=== PATIENT | male | born 1940 | race Caucasian/White ===

== ENCOUNTER → 2017-03-03 | Outpatient (CLI) | payer OTHER ==
[~2017-03-03] MED LIST: ACET-1487 PO; ASPEC325 PO; FISHOIL PO; HYT/2 PO; ISOS60TA25 PO; LORA-741 PO; LPR25 PO; MULT-351 PO; RANO500T PO; SIMV40TA4 PO; TERA5CAP PO; TRAM-10 PO
--- NOTE | 2017-03-04 08:57 | PAP/PSG TECHNICIAN REPORT ---
[facility] [place] Polysomnogram Report Study name: None Report date: 03/04/2017 Study date: 03/03/2017 Referring Physician: Epifanio LANDERS M.D. Name: BAYRON FRY V Interpreting Physician: Robert Landers M.D. Date of : 1940 [place]: Cassie Wong RPSGT. Sex: Male Age: 76 Study Type: PSG Weight: 202 lbs 16.5 in Height: 76 years, Height 5' 5" Neck Circum: BMI: 33.61 Medications: CLOPIDOGREL 75 MG, IMDUR 30 MG, NITROSTAT 0.4 MG, FUROSEMIDE 20 MG, TERAZOSIN 5 MG, MULTI VIT, METOPROLOL 50 MG, TYLENOL 650 MG, ASPIRIN 81 MG, B COMPLEX, ONE A DAY MENS, ATORVASTATIN 40 MG, OMEGA 3 FISH OIL 1000 MG Patient History 76 yr-old male here for a baseline/split study. HE has a history of unrefreshing sleep, snoring, and heart disease. His [place] scale is 16. The test was started on room air. ETCO2 testing is included in this study. Room 1 Parameters Monitored NPSG: E1-M2, E2-M1, Fp1-M2, Fp2-M1, F3-M2, F4-M2, F4-M1, C3-M2, C4-M2, C4-M1, O1-M2, O2-M2, O2-M1, T3-M2, T4-M1, P3-M2, P4-M1, CHIN1, CHIN2, HR, EKG, Legs, PFLOW, SNOR, FLOW, CFLOW, Tidal Volume, THOR, ABDO, SpO2, PLTH, CPRESS, ETCO2 Wave, ETCO2, pH Sleep Architecture Sleep Stages Time at Lights Off 9:23:46 PM STAGES Time (min.) TST (%) Time at Lights On 5:13:46 AM Wake 92.0 -- Total Recording Time (TRT) 470.00 min. N1 100.0 26 Total Sleep Period (TSP) 464.0 min. N2 203.5 54 Total Sleep Time (TST) 378.0min. N3 0.0 0 Awake Time 92.0 min. REM 74.5 20 Wake after Sleep Onset 86.0 min. Sleep Efficiency (SE) 80 % Sleep Onset Latency (RYAN) 6.0 min. Number of Stage 1 Shifts None Awakenings 39 Stage Changes 195 Number of REM periods 5 REM 74.5 20 REM Latency 73.0 min. NREM 303.5 80 Body Position Analysis Supine Right Left Side Prone Vertical Total Sleep Time (min.) 100.6 155.4 155.0 310.37 0.0 0.0 Total Sleep Time (%) 18% 41% 41% 82 0% N/A% Total Sleep Time REM (min.) 0.0 19.0 55.5 None 0.0 0.0 Total Sleep Time NREM (min.) 67.6 136.4 99.5 None 0.0 0.0 Intermittent Wake (min.) 33.0 21.7 37.3 None 0.0 0.0 Total Sleep Period (%) 20% None None None None None Arousals Myoclonus (PLM) * Events Count Index Events Count Index Spontaneous 17 3 Events Awake (PLMW) 154 100.4 Respiratory 103 18.1 Events Asleep w/ Arousal (PLMA) 69 11.0 PLM 67 11 Events Asleep w/o Arousal (PLMS) 656 104.1 Snoring 17 3 Total Asleep 725 115.1 Total 202 32 Total 879 112 Respiratory Analysis * CA OA MA CH H RERA Total Count 22 38 65 0 176 8 301 Index 3.5 6.0 10.3 0 27.9 1 49.0 Mean Duration 22.0 21.7 28.9 0.00 24.2 19.8 24.6 Longest Duration 30.6 35.9 37.1 0.00 37.1 24.5 56.4 Respiratory Event Summary Total Supine ~Supine Right Left Prone REM NREM Apneas Count 125 51 74 2 72 N/A 2 123 Index 19.8 45 14 0.8 27.9 N/A 2 24 Hypopneas (4% Desat) Count 176 45 131 60 71 N/A 45 131 Index 27.9 39.9 25 23.2 27.5 N/A 36.2 25.9 Apneas & All Hypopneas Count 301 96 205 62 143 N/A 47 254 Index 47.8 85 40 24 55 N/A 37.9 50.2 Respiratory Events (Mixer Attendant+All Hyp+RERA) Count 301 96 213 69 144 N/A 47 254 Index 49.0 85 41 26.6 55.7 N/A 37.9 51.8 Respiratory Related Arousal Count 103 96 63 22 41 N/A 4 110 Index 18.1 45 12 8 16 N/A 3 22 Snoring Analysis Supine Right Left Prone REM NREM Total Snore duration 25.1 min Snores count 154 234 725 N/A 539 574 1,113 Snore mean duration 1.4 Sec Snores index 137 90 281 N/A 434.1 113.5 176.7 TST with snoring (%) 6.6% SpO2 Analysis Total REM NREM Awake <50% 0.0 min. 0.0 min. 0.0 min. 0.0 min. 51 - 60% 0.0 min. 0.0 min. 0.0 min. 0.0 min. 61 - 70% 0.0 min. 0.0 min. 0.0 min. 0.0 min. 71 - 80% 0.4 min. 0.4 min. 0.0 min. 0.0 min. 81 - 90% 141.9 min. 33.6 min. 89.5 min. 18.9 min. 91 - 100% 313.8 min. 40.5 min. 213.9 min. 59.3 min. Average 91 90 91 92 Minimum SpO2 78 78 80 82 Desaturation Event Index 47.5 34.6 51.2 49.6 # Desat. Events below 89% 246 32 171 43 Time(%) with Saturation below 89% 12.3 4.0 6.6 1.6 Time(min.) with Saturation below 89% 56.2 18.4 30.3 7.5 Heart Rate Analysis End Tidal CO2 Analysis Min (bpm) Max (bpm) Average (bpm) TSP (mins) % of TSP Awake 42 127 62 Above 55 mmHg 0.0 0.0 NREM 42 85 58 50-55 mmHg 0.1 0.0 REM 47 83 62 45-50 mmHg 10.8 2.8 Overall 42 85 59 40-45 mmHg 75.0 19.9 35-40 mmHg 101.8 26.9 30-35 mmHg 92.5 24.5 Average ETCO2 0.3 Supplemental O2 Values Minimum O2 level: None Value Start Time End Time [place] Comments Mr. Fry slept in the right, left, and supine positions. Cardiac arrhythmias were noted (please refer to the print outs). PLMs were noted. No bruxism noted. Snoring was noted and scored as a 3 on a scale of 1 through 5. (0=no snoring, 5=snoring loud enough to be heard through a closed door or down the [address]olan way) He did not meet specific Split-Night criteria in enough time during the diagnostic portion of this study. He awoke to use the restroom two times during the night. Mr. Fry stated that he woke up a lot and didn't sleep soundly. The final report will be interpreted and signed by a sleep physician. The completed physician report will then be placed in the patient medical record. Therapy (cm H2O) 0 TIB (min.) 470.0 TST (min.) 378.0 Sleep Onset (min.) 6.0 REM Onset From Sleep (min.) 73.0 Sleep Efficiency % 80 Wakefulness (%) 20 Wakefulness (min.) 92.0 NREM 1 (%) 26 NREM 1 (min.) 100.0 NREM 2 (%) 54 NREM 2 (min.) 203.5 NREM 3 (%) 0 NREM 3 (min.) 0.0 REM (%) 20 REM (min.) 74.5 # Arousals 202 Arousal Index 32 # Snore 1,113 Snore Index 176.7 AHI 47.8 AHI Supine 85 AHI Non-Supine 40 NREM AHI 50.2 REM AHI 37.9 RDI 49.0 # Obstructive Apnea 38 # Central Apnea 22 # Mixed Apnea 65 # Hypopneas 176 RERAs 8 Total Respiratory Events 314 Time Below SpO2 89% (min.) 48.7 Mean NREM SpO2 (%) 91 Mean REM SpO2 (%) 90 Mean Sleep SpO2 (%) 91 Min NREM SpO2 (%) 80 Min REM SpO2 (%) 78 Position Supine (min.) 100.6 Position Non-supine (min.) 310.4 LM Index Sleep 115.1 LM Index NREM 125.7 LM Index REM 71.7 Mean Heart Rate (bpm) 59 Min Heart Rate (bpm) 42
--- NOTE | 2017-03-11 15:02 | POLYSOMNOGRAPH REPORT ---
REFERRING PERSON: Dr. Naga Landers. HOSTESS PARTY SALES REPRESENTATIVE: Cassie Wong. Mr. Fry is a 76-year-old male with a history of snoring and unrefreshing sleep as well as heart disease. 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 His [place] Sleepiness Scale score on the evening of this study is 16. BMI is 33.61. Following the technical and digital specifications of the [employer] [employer] (AASM) a standard diagnostic polysomnogram was performed monitoring EEG, EOG, EMG (chin and leg deviations), oxygen saturation, body position, digital video, respiratory effort and airflow. The sleep Stage and event scoring was based on the AASM Manual for the Scoring of Sleep and Associated Events 2007 edition. Apneas are defined as a drop in the peak thermal sensor excursion by >90% of baseline for at least 10 seconds. Hypopneas were scored using the 4% oxygen desaturation rule (4A-Medicare) and a decrease in the nasal pressure excursions by >30% of baseline for at least 10 seconds. Respiratory effort-related arousal (RERA's) is defined as a sequence of breaths lasting at least 10 seconds characterized by increasing respiratory effort or flattening of the nasal pressure waveform leading to an arousal from sleep when the sequence of breaths does not meet criteria for an apnea or hypopnea. Apnea Hypopnea index (AHI) is defined as the number of apneas and hypopneas occurring in an hour of sleep. Respiratory disturbance index (RDI) is defined as the number of apneas, hypopneas, and RERA's occurring in an hour of sleep. Mr. Fry's total sleep period time was 464 minutes. Total sleep time was 378 minutes. Sleep efficiency was 80%. Latency to sleep onset was 6 minutes with wake after sleep onset was 86 minutes. Total non-REM sleep time was 303.5 minutes. He spent 26% of that time in N1 sleep, 54% in N2 sleep and no time in N3 sleep. REM latency was 73 minutes. Total REM sleep time was 74.5 minutes or 20% of total sleep time. There were 202 cortical arousals from sleep. 17 of these arousals were spontaneous, 103 were due to respiratory events, 67 due to periodic limb movements of sleep and 17 were due to snoring. There were 725 periodic limb movements noted on this test. Limb movement index was 115.1. Limb movement with arousal index was 11. There were 22 central apneas, 38 obstructive apneas and 65 mixed apneas on this test. There were also 176 what appear to be obstructive hypopnea. Apnea-hypopnea index was 47.8 consistent with severe sleep apnea. The supine AHI was 85. REM AHI was 37.9. There were 1113 snoring events recorded. Total sleep time with snoring was 6.6%. Mean saturation was 91% with desaturations to 78%. Saturations were less than 89% for 56.2 minutes of recorded time. Heart rates ranged from a low of 42 beats per minute to a high of 85 beats per minute on this study. There appeared to be sinus rhythm with blocked premature atrial complexes noted on EKG monitoring. End tidal CO2s were recorded on this test. End-tidal CO2s were between 45 and 50 mmHg for 2.8% of total sleep period time, between 40 and 45 mmHg for 19.9%, between 35 and 40 mmHg for 26.9% and between 30 and 35 mmHg for 24.5% of total sleep period time. IMPRESSION AND PLAN: Mr. Fry is a 76-year-old male with evidence of severe sleep apnea and significant nocturnal hypoxemia on this sleep study. 1. This patient should return to sleep lab for a full night titration and then based on those results be started on equipment at home. A download from his machine should be reviewed in 1 month both to check compliance as well as apnea-hypopnea index and further pressure adjustments can occur at that time. Given this patient's heart disease, this patient should be treated. This will help his snoring, hypoxemia as well as apnea.
== END | disposition home or self-care (01) ==
LOC: C.NEUR 20:00
PROVIDERS: ATTEND Family Medicine
DX: E66.9 Obesity, unspecified (principal); G47.10 Hypersomnia, unspecified; R09.02 Hypoxemia; I25.10 Atherosclerotic heart disease of native coronary artery without angina pectoris

== ENCOUNTER → 2017-03-18 | Outpatient (CLI) | payer OTHER ==
--- NOTE | 2017-03-19 07:51 | PAP/PSG TECHNICIAN REPORT ---
[facility] [place] Polysomnogram Report Study name: None Report date: 03/19/2017 Study date: 03/18/2017 Referring Physician: Epifanio LANDERS M.D. Name: BAYRON ESPINOZA V Interpreting Physician: Robert Landers M.D. Date of : 1940 [place]: Rachna Bird RPSGT. Sex: Male Age: 76 StudyType: PSG Weight: 202 lbs Height: 76 years, Height 5' 5" BMI: 33.61 Medications: CLOPIDOGREL 75 MG, IMDUR 30 MG, NITROSTAT 0.4 MG, FUROSEMIDE 20 MG, TERAZOSIN 5 MG, MULTI VIT, METOPROLOL 50 MG, TYLENOL 650 MG, ASPIRIN 81 MG, B COMPLEX, ONE A DAY MENS, ATORVASTATIN 40 MG, OMEGA 3 FISH OIL 1000 MG Patient History 76 yr. old male here for a new titration sleep study. Patients PSG was done on 03/03/17 and had an AHI of 49.0. Patient was started on PAP but could not keep his mouth closed with the nasal mask given. Starting study with full face mask on CPAP. Parameters Monitored NPSG: E1-M2, E2-M1, Fp1-M2, Fp2-M1, F3-M2, F4-M2, F4-M1, C3-M2, C4-M2, C4-M1, O1-M2, O2-M2, O2-M1, T3-M2, T4-M1, P3-M2, P4-M1, CHIN1, CHIN2, HR, EKG, Legs, PFLOW, SNOR, FLOW, CFLOW, Tidal Volume, THOR, ABDO, SpO2, PLTH, CPRESS, ETCO2 Wave, ETCO2, pH Sleep Architecture Sleep Stages Time at Lights Off 9:39:13 PM STAGES Time (min.) TST (%) Time at Lights On 5:34:43 AM Wake 53.5 -- Total Recording Time (TRT) 470.50 min. N1 33.5 8 Total Sleep Period (TSP) 468.5 min. N2 243.0 58 Total Sleep Time (TST) 416.5min. N3 53.5 13 Awake Time 54.0 min. REM 86.5 21 Wake after Sleep Onset 53.5 min. Sleep Efficiency (SE) 89 % Sleep Onset Latency (RYAN) 5.5 min. Number of Stage 1 Shifts None Awakenings 27 Stage Changes 130 Number of REM periods 6 REM 86.5 21 REM Latency 103.5 min. NREM 330.0 79 Body Position Analysis Supine Right Left Side Prone Vertical Total Sleep Time (min.) 264.0 115.1 59.5 174.65 0.0 0.0 Total Sleep Time (%) 58% 28% 14% 42 0% N/A% Total Sleep Time REM (min.) 76.0 0.0 10.5 None 0.0 0.0 Total Sleep Time NREM (min.) 165.9 115.1 49.0 None 0.0 0.0 Intermittent Wake (min.) 22.1 22.4 8.9 None 0.0 0.0 Total Sleep Period (%) 56% None None None None None Arousals Myoclonus (PLM) * Events Count Index Events Count Index Spontaneous 18 3 Events Awake (PLMW) 115 129.0 Respiratory 16 2.6 Events Asleep w/ Arousal (PLMA) 43 6.2 PLM 43 6 Events Asleep w/o Arousal (PLMS) 467 67.3 Snoring 6 1 Total Asleep 510 73.5 Total 83 12 Total 625 80 Respiratory Analysis * CA OA MA CH H RERA Total Count 34 15 4 0 149 0 202 Index 4.9 2.2 0.6 0 21.5 0 29.1 Mean Duration 21.2 23.9 22.0 0.00 25.5 0.0 24.6 Longest Duration 29.0 29.8 26.8 0.00 26.8 0.0 82.6 Respiratory Event Summary Total Supine ~Supine Right Left Prone REM NREM Apneas Count 53 49 4 4 0 N/A 5 48 Index 7.6 12 1 2.1 0.0 N/A 3 9 Hypopneas (4% Desat) Count 149 129 20 13 7 N/A 42 107 Index 21.5 32.0 7 6.8 7.1 N/A 29.1 19.5 Apneas & All Hypopneas Count 202 178 24 17 7 N/A 47 155 Index 29.1 44 8 9 7 N/A 32.6 28.2 Respiratory Events (Negative Assembler+All Hyp+RERA) Count 202 178 24 17 7 N/A 47 155 Index 29.1 44 8 8.9 7.1 N/A 32.6 28.2 Respiratory Related Arousal Count 16 178 3 3 0 N/A 1 17 Index 2.6 4 1 2 0 N/A 1 3 Snoring Analysis Supine Right Left Prone REM NREM Total Snore duration 7.2 min Snores count 262 52 3 N/A 116 201 317 Snore mean duration 1.4 Sec Snores index 65 27 3 N/A 80.5 36.5 45.7 TST with snoring (%) 1.7% Desaturation Event Summary: Minimum %SpO2 Event Count Mean/Min/Max Duration(sec.) Desaturation Index % Time In Bed > 90 228 25.0 / 4.8 / 56.3 40.8 72.5 86 - 90 25 22.2 / 4.8 / 56.0 12.6 25.7 81 - 85 1 12.0 / 12.0 / 12.0 7.6 1.7 76 - 80 0 N/A 0.0 0.0 71 - 75 0 N/A 0.0 0.0 66 - 70 0 N/A 0.0 0.0 61 - 65 0 N/A 0.0 0.0 56 - 60 0 N/A 0.0 0.0 51 - 55 0 N/A 0.0 0.0 < 50 0 N/A 0.0 0.0 Total REM NREM Awake <50% 0.0 min. 0.0 min. 0.0 min. 0.0 min. 51 - 60% 0.0 min. 0.0 min. 0.0 min. 0.0 min. 61 - 70% 0.2 min. 0.0 min. 0.0 min. 0.2 min. 71 - 80% 0.1 min. 0.1 min. 0.0 min. 0.0 min. 81 - 90% 126.6 min. 34.6 min. 83.6 min. 8.4 min. 91 - 100% 335.2 min. 51.8 min. 245.9 min. 37.5 min. Average 92 91 92 92 Minimum SpO2 65 80 81 65 Desaturation Event Index 29.5 31.9 29.8 26.9 # Desat. Events below 89% 133 22 100 11 Time(%) with Saturation below 89% 8.8 3.4 4.9 0.5 Time(min.) with Saturation below 89% 40.6 15.6 22.8 2.2 Time (mins) REM (mins) NREM (mins) % of TST SpO2 Below 90% 191 38 N153 17.0 SpO2 Below 88% 50 0 0 5 Heart Rate Analysis Min (bpm) Max (bpm) Average (bpm) Awake 43 250 73 NREM 42 105 65 REM 43 84 63 Overall 42 105 65 Supplemental O2 Values Minimum O2 level: None Value Start Time End Time [place] Comments Mr. France slept in the right, left, and supine positions. Cardiac arrhythmia and PLMs noted. No bruxism noted. CPAP was initiated at +5 CMH2O and up-titrated to level of +10 CMH2O Cflex 2. Mr. France was having Elmer Alvarado respirations and central apneas and was switched to Bi-PAP. PAP initiated at an IPAP of +8 CMH2O and an EPAP of +4 CMH2O up-titrated to an optimal level of: IPAP +19 CMH2O, EPAP + [id number] BiFlex with a rate of 13BPM. A Medium Respironics Leilani View was used during titration. (Three other full face masks were tried. This mask had the best leak and was the most comfortable for the patient) Mr. France awoke to use the restroom once during the night. Mr. France stated, "I slept pretty well". The final report will be interpreted and signed by a sleep physician. The completed physician report will then be placed in the patient medical record. Therapy Event: Therapy (cm H20) 5 6 7 8 10 8/4 10/6 12/7 Total Time at Pressure (min.) 25.6 73.8 17.6 10.0 29.4 8.3 29.2 77.9 TST at Pressure (min.) 19.1 64.3 17.1 10.0 22.9 7.8 27.6 57.5 # Periods 1 1 1 1 1 1 1 1 Sleep Onset (min.) 5.5 0.0 0.0 0.0 0.0 0.0 0.0 3.9 REM Onset (min.) N/A N/A 9.6 0.0 0.0 N/A N/A N/A Sleep Efficiency % 74 87 97 100 77 94 94 73 Wakefulness (%) 25.4 12.9 2.8 0.0 22.1 6.0 5.5 26.2 Wakefulness (min.) 6.5 9.5 0.5 0.0 6.5 0.5 1.6 20.4 NREM 1 (%) 25.4 10.8 2.8 0.0 11.9 6.0 3.4 8.3 NREM 1 (min.) 6.5 8.0 0.5 0.0 3.5 0.5 1.0 6.5 NREM 2 (%) 49.3 48.5 68.4 0.0 29.0 88.0 77.4 56.5 NREM 2 (min.) 12.6 35.8 12.1 0.0 8.5 7.3 22.6 44.0 NREM 3 (%) 0.0 27.8 0.0 0.0 0.0 0.0 13.7 9.0 NREM 3 (min.) 0.0 20.5 0.0 0.0 0.0 0.0 4.0 7.0 REM (%) 0.0 0.0 25.9 100.0 37.0 0.0 0.0 0.0 REM (min.) 0.0 0.0 4.6 10.0 10.9 0.0 0.0 0.0 # Arousals 8 21 1 0 8 4 14 9 Arousal Index 25.1 19.6 3.5 0.0 20.9 30.6 30.4 9.4 # Snore 7 51 42 20 24 11 17 9 Snore Index 22.0 47.6 147.1 119.7 62.7 84.2 36.9 9.4 AHI 9.4 6.5 42.0 41.9 41.8 68.9 45.6 26.1 AHI Supine 9.4 16.4 42.0 41.9 43.7 68.9 82.4 72.1 AHI Non-Supine N/A 5.3 N/A N/A 0.0 N/A 26.4 6.0 NREM AHI 9.4 6.5 33.5 N/A 64.7 68.9 45.6 26.1 REM AHI N/A N/A 65.6 41.9 16.5 N/A N/A N/A RDI 9.4 6.5 42.0 41.9 41.8 68.9 45.6 26.1 # Obstructive 0 0 4 2 2 2 5 0 # Central Ap 0 0 0 0 4 2 4 21 # Mixed 0 0 0 0 1 0 3 0 # Hypopneas 3 7 8 5 9 5 9 4 RERAS 0 0 0 0 0 0 0 0 Total Respiratory Events 3 7 12 7 16 9 21 25 Time Below SpO2 89.00% (min.) 2.3 0.9 3.6 6.0 4.0 1.9 2.8 4.6 Mean NREM SpO2 (%) 90 92 90 N/A 91 91 92 92 Mean REM SpO2 (%) N/A N/A 89 88 90 N/A N/A N/A Mean Sleep SpO2 (%) 90 92 90 88 91 91 92 92 Min NREM SpO2 (%) 87 87 81 N/A 85 84 82 83 Min REM SpO2 (%) N/A N/A 81 80 87 N/A N/A N/A Position Supine (min.) 19.1 7.3 17.1 10.0 21.9 7.8 9.5 17.5 Position Non-supine (min.) 0.0 57.0 0.0 0.0 1.0 0.0 18.1 40.0 LM Index Sleep 28.2 166.0 136.6 101.8 120.3 168.3 113.0 54.3 LM Index NREM 28.2 166.0 152.9 N/A 169.3 168.3 113.0 54.3 LM Index REM N/A N/A 91.8 101.8 66.0 N/A N/A N/A Mean Heart Rate (bpm) 66 72 75 75 70 67 71 73 Min Heart Rate (bpm) 53 52 59 60 55 54 53 55 Therapy (cm H20) 13 14/9 15/9 16/10 17/10 18/11 19/11 Total Time at Pressure (min.) 14.7 25.5 15.0 22.3 16.0 32.2 72.3 TST at Pressure (min.) 14.7 25.5 15.0 22.3 16.0 30.7 65.8 # Periods 1 1 1 1 1 1 1 Sleep Onset (min.) 0.0 0.0 0.0 0.0 0.0 0.0 0.0 REM Onset (min.) N/A N/A 13.3 0.0 0.0 0.0 60.3 Sleep Efficiency % 100 100 100 100 100 95 91 Wakefulness (%) 0.0 0.0 0.0 0.0 0.0 4.7 9.0 Wakefulness (min.) 0.0 0.0 0.0 0.0 0.0 1.5 6.5 NREM 1 (%) 0.0 3.9 6.7 0.0 0.0 3.1 5.5 NREM 1 (min.) 0.0 1.0 1.0 0.0 0.0 1.0 4.0 NREM 2 (%) 54.7 59.4 82.1 0.0 0.0 48.6 67.5 NREM 2 (min.) 8.0 15.2 12.3 0.0 0.0 15.7 48.8 NREM 3 (%) 45.3 36.7 0.0 0.0 0.0 10.9 3.5 NREM 3 (min.) 6.6 9.4 0.0 0.0 0.0 3.5 2.5 REM (%) 0.0 0.0 11.2 100.0 100.0 32.8 14.5 REM (min.) 0.0 0.0 1.7 22.3 16.0 10.6 10.5 # Arousals 0 5 2 1 0 2 8 Arousal Index 0.0 11.8 8.0 2.7 0.0 3.9 7.3 # Snore 6 17 19 12 45 18 19 Snore Index 24.6 40.0 75.9 32.3 169.2 35.2 17.3 AHI 24.6 42.3 59.9 29.6 41.4 50.8 13.7 AHI Supine 24.6 42.3 59.9 29.6 41.4 50.8 65.4 AHI Non-Supine N/A N/A N/A N/A N/A N/A 7.2 NREM AHI 24.6 42.3 63.0 N/A N/A 53.6 15.2 REM AHI N/A N/A 35.6 29.6 41.4 45.5 5.7 RDI 24.6 42.3 59.9 29.6 41.4 50.8 13.7 # Obstructive 0 0 0 0 0 0 0 # Central Ap 0 3 0 0 0 0 0 # Mixed 0 0 0 0 0 0 0 # Hypopneas 6 15 15 11 11 26 15 RERAS 0 0 0 0 0 0 0 Total Respiratory Events 6 18 15 11 11 26 15 Time Below SpO2 89.00% (min.) 0.6 3.3 3.1 3.9 0.6 0.6 0.3 Mean NREM SpO2 (%) 91 91 90 N/A N/A 92 93 Mean REM SpO2 (%) N/A N/A 89 91 92 93 94 Mean Sleep SpO2 (%) 91 91 90 91 92 93 93 Min NREM SpO2 (%) 87 86 86 N/A N/A 88 88 Min REM SpO2 (%) N/A N/A 85 85 87 88 91 Position Supine (min.) 14.7 25.5 15.0 22.3 16.0 30.7 7.3 Position Non-supine (min.) 0.0 0.0 0.0 0.0 0.0 0.0 58.5 LM Index Sleep 4.1 14.1 4.0 26.9 11.3 93.8 23.7 LM Index NREM 4.1 14.1 4.5 N/A N/A 110.1 22.8 LM Index REM N/A N/A 0.0 26.9 11.3 62.5 28.6 Mean Heart Rate (bpm) 64 64 62 62 60 57 50 Min Heart Rate (bpm) 57 54 53 50 49 44 42
--- NOTE | 2017-04-05 08:06 | POLYSOMNOGRAPH REPORT ---
REFERRING PERSON: Dr. Robert Landers. BODY ROLLING MACHINE TENDER: Rachna Bird. Mr. Fry is a 76-year-old male sent for CPAP titration study. He had a baseline study performed on 03/03/2017 which showed an AHI of 49. He had been started on CPAP, but was unable to keep his mouth closed with a nasal mask and will be using a full face mask during this study. He used a medium Respironics Leilani View. Following the technical and digital specifications of the [place] [employer] (AASM) a standard diagnostic polysomnogram was performed monitoring EEG, EOG, EMG (chin and leg deviations), oxygen saturation, body position, digital video, respiratory effort and airflow. The sleep Stage and event scoring was based on the AASM Manual for the Scoring of Sleep and Associated Events 2007 edition. Apneas are defined as a drop in the peak thermal sensor excursion by >90% of baseline for at least 10 seconds. Hypopneas were scored using the 4% oxygen desaturation rule (4A-Medicare) and a decrease in the nasal pressure excursions by >30% of baseline for at least 10 seconds. Respiratory effort-related arousal (RERA's) is defined as a sequence of breaths lasting at least 10 seconds characterized by increasing respiratory effort or flattening of the nasal pressure waveform leading to an arousal from sleep when the sequence of breaths does not meet criteria for an apnea or hypopnea. Apnea Hypopnea index (AHI) is defined as the number of apneas and hypopneas occurring in an hour of sleep. Respiratory disturbance index (RDI) is defined as the number of apneas, hypopneas, and RERA's occurring in an hour of sleep. Mr. Fry's total sleep period time was 468.5 minutes. Total sleep time was 416.5 minutes. Sleep efficiency was 89%. Latency to sleep onset was 5.5 minutes with wake after sleep onset of 53.5 minutes. Total non-REM sleep time was 330 minutes. He spent 8% of that time in N1 sleep, 58% in N2 sleep and 13% in N3 sleep. REM latency was 103.5 minutes. Total REM sleep time was 86.5 minutes or 21% of total sleep time. There were 83 cortical arousals from sleep. Eighteen of these arousals were spontaneous, 16 were due to respiratory events, 43 due to periodic limb movements of sleep and 6 were due to snoring. There were 510 periodic limb movements noted on this test. Limb movement index was 73.5. Limb movement with arousal index was 6.2. During this titration, Mr. Fry had 34 central apneas, 15 obstructive apneas and 4 mixed apnea. Additionally, there were 149 hypopnea. Overall, apnea-hypopnea index was 29.1. 317 snoring events were recorded, total sleep time with snoring was 1.7%. Mean saturation was 92 with desaturations to 65%, but this is transient. Saturations were less than 89 for 40.6 minutes of recording time. Heart rates during this titration ranged from a low of 42 beats per minute to a high of 105 beats per minute. PACs were noted on EKG monitoring. As stated above, this was a CPAP titration study. Mr. Fry was titrated first on CPAP from a CPAP pressure of 5 to a CPAP pressure of 10. At that time, he was switched to bilevel therapy for both central apneas as well as Elmer-Alvarado respirations. He was then titrated on bilevel therapy from and IPAP of 8 and an EPAP of 4 to a final pressure of 19/ with a backup rate of 13. A backup rate of 13 did in fact improve the central events, but he continued to have hypopneas on this pressure. Final AHI on 09/06 with a backup rate of 13 was 13.7. This did in fact eliminate hypoxemia with 0.3 minutes of saturations less than 89%. IMPRESSION AND PLAN: Incomplete titration study in this patient with what appears to be at least mixed apneas, possibly complex sleep apnea. I would recommend that this patient be started on BiPAP ST at home. I would set this patient on an inspiratory pressure of 20 and expiratory pressure of 13 to start with a backup rate of 13. A download from his machine can be reviewed in 1 month both to check compliance as well as AHI and further pressure adjustments can occur at that time. It appears that the backup rate does eliminate his central events, however he continued to have hypopnea events on 09/06.
== END | disposition home or self-care (01) ==
LOC: C.NEUR 21:00
PROVIDERS: ATTEND Family Medicine
DX: G47.33 Obstructive sleep apnea (adult) (pediatric) (principal)

== ENCOUNTER 2023-08-01 19:25 | Observation (INO) ==
[2023-08-01 20:34] LABS: Basophils # (auto) 0.03 K/uL (0.00-0.20); Basophils % (auto) 0.5 %; Eosinophils # (auto) 0.23 K/uL (0.00-0.50); Eosinophils % (auto) 3.5 %; Hematocrit (blood only) 39.4 % (42.0-52.0); Hemoglobin 13.4 g/dl (14.0-18.0); Immature Granulocytes # (auto) 0.04 K/uL (0.01-0.20); Immature Granulocytes % (auto) 0.6 %; Lymphocytes # (auto) 1.57 K/uL (1.20-3.40); Mean Corpuscular Hemoglobin 31.1 pg (25.0-34.0); Mean Corpuscular Volume 91.4 fL (80.0-100.0); Mean Platelet Volume 9.8 fL (9.4-12.4); Monocytes # (auto) 0.73 K/uL (0.11-0.59); Monocytes % (auto) 11.2 %; Neutrophils # (auto) 3.94 K/uL (1.40-6.50); Neutrophils % (auto) 60.2 %; Platelet Count 147 K/uL (130-400); RDW Coefficient of Variation 13.2 % (11.5-14.5); RDW Standard Deviation 44.6 fL (36.4-46.3); Red Blood Count 4.31 M/uL (4.70-6.10); White Blood Count 6.54 K/ul (4.8-10.8)
[2023-08-01 20:36] LABS: Albumin Globulin Ratio 1.2 (0.9-2); Albumin Level 3.9 gm/dl (3.4-5.0); BUN Creatinine Ratio 29.7 (10-20); Bilirubin,Total 0.4 mg/dl (0.2-1.0); Creatinine Clr Calc Pharmacy 47.9 ml/min; Est GFR (African American) 59.2 ml/min; Est GFR (Non-African American) 51.1 ml/min; Globulin 3.2 gm/dl (2.5-4.0); Potassium 4.1 mmol/L (3.5-5.1); Total Protein 7.1 gm/dl (6.0-8.3)
[2023-08-01 20:41] LABS: Troponin I High Sensitivity 13.5 pg/ml (0-20)
[2023-08-01 20:45] LABS: INR 1.1 (0.9-1.1); Partial Thromboplastin Time 27 Seconds (21-31); Prothrombin Time 11.5 Seconds (9.0-12.0)
[2023-08-01] MEDS ORDERED: OPTIRAY 320 125ml IV ONE (20:59)
--- NOTE | 2023-08-01 21:22 | CT Scan Report ---
Exam(s): CTA HEAD With Contrast IV Amt: 118 ml opti 320 EXAM: CT Angiography Head With Intravenous Contrast CLINICAL HISTORY: neuro deficit, acute stroke suspected. TECHNIQUE: Axial computed tomographic angiography images of the head with intravenous contrast. CTDI is 14.33 mGy and DLP is 548.85 mGy-cm. Automated exposure control was utilized for the study. A dose lowering technique was utilized adhering to the principles of ALARA. MIP reconstructed images were created and reviewed. CONTRAST: Patient received 118 ml opti 320 of IV contrast COMPARISON: No relevant prior studies available. FINDINGS: Right internal carotid artery: Prominent atherosclerotic calcification of the cavernous and supraclinoid segments of the right internal carotid artery. Mild to moderate narrowing of the distal internal carotid segment suspected. No occlusion. The petrous segment is patent. No aneurysm. Right anterior cerebral artery: Unremarkable. No occlusion or significant stenosis. No aneurysm. Right middle cerebral artery: Unremarkable. No occlusion or significant stenosis. No aneurysm. Right posterior cerebral artery: Unremarkable. No occlusion or significant stenosis. No aneurysm. Right vertebral artery: Unremarkable as visualized. Left internal carotid artery: Moderate atherosclerotic calcification of the cavernous and supraclinoid segments of the left internal carotid artery. Mild narrowing of the distal internal carotid segment. The left petrous segment is patent. No aneurysm. Left anterior cerebral artery: Unremarkable. No occlusion or significant stenosis. No aneurysm. Left middle cerebral artery: Unremarkable. No occlusion or significant stenosis. No aneurysm. Left posterior cerebral artery: Unremarkable. No occlusion or significant stenosis. No aneurysm. Left vertebral artery: Unremarkable as visualized. Basilar artery: Unremarkable. No occlusion or significant stenosis. No aneurysm. Dural sinuses/cerebral veins: The dural sinuses are unremarkable. Brain: No abnormal parenchymal enhancement. IMPRESSION: 1. Atherosclerotic calcification of the bilateral cavernous and supraclinoid internal carotid arteries with mild narrowing distally on the left and mild to moderate narrowing distally on the right. No occlusion or critical stenosis. 2. Otherwise negative intracranial CTA examination. Electronically signed by: Carlton Torres MD 08/01/23 21:21 PM
--- NOTE | 2023-08-01 21:29 | CT Scan Report ---
Exam(s): CTA NECK With Contrast IV Amt: 118 ml opti 320 EXAM: CT Angiography Neck With Intravenous Contrast CLINICAL HISTORY: neuro deficit, acute stroke suspected. TECHNIQUE: Routine carotid CT angiography protocol was performed with intravenous contrast. NASCET criteria using the distal ICAs for comparison were used for evaluation of stenoses. CTDI is 26.99 mGy and DLP is 13.49 mGy-cm. Automated exposure control was utilized for the study. A dose lowering technique was utilized adhering to the principles of ALARA. MIP reconstructed images were created and reviewed. CONTRAST: Patient received 118 ml opti 320 of IV contrast COMPARISON: None. FINDINGS: VASCULATURE: Right common carotid artery: Unremarkable. No occlusion or significant stenosis. No dissection. Right internal carotid artery: Atherosclerotic calcification of the proximal right internal carotid artery, extending to the carotid bifurcation. No significant narrowing by NASCET criteria. The mid to distal right internal carotid artery is patent. Right external carotid artery: Unremarkable. No occlusion. 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 Left common carotid artery: Unremarkable. No occlusion or significant stenosis. No dissection. Left internal carotid artery: Atherosclerotic calcification of the proximal left internal carotid artery, extending to the carotid bifurcation. No significant narrowing by NASCET criteria. The mid to distal right internal carotid artery is patent. No dissection. Left external carotid artery: Unremarkable. No occlusion. Left vertebral artery: Unremarkable. No occlusion or significant stenosis. No dissection. Brachiocephalic and subclavian arteries: There is a bovine type I branching pattern of the proximal great vessels. Atherosclerotic calcification without significant ostial stenosis. Aorta: Atherosclerotic calcification of the aortic arch without dissection or aneurysm. Postoperative changes consistent with prior CABG. NECK: Bones/joints: Unremarkable. No acute fracture. Soft tissues: Unremarkable. Lung apices: Clear. CAROTID STENOSIS REFERENCE USING NASCET CRITERIA: % ICA stenosis = (1 - narrowest ICA diameter/diameter of distal cervical ICA) x 100. Mild - <50% stenosis. Moderate - 50-69% stenosis. Severe - 70-94% stenosis. Near occlusion - 95-99% stenosis. Occluded - 100% stenosis. IMPRESSION: 1. 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 The left vertebral artery is widely patent. 2. Atherosclerotic calcification of both carotid bifurcations without significant narrowing by NASCET criteria. The common carotid and internal carotid arteries are otherwise patent. Electronically signed by: Carlton Torres MD 08/01/23 21:28 PM
--- NOTE | 2023-08-01 21:31 | CT Scan Report ---
Exam(s): CT HEAD Without Contrast EXAM: CT Head Without Intravenous Contrast CLINICAL HISTORY: neuro deficit, acute stroke suspected. TECHNIQUE: Axial computed tomography images of the head/brain without intravenous contrast. CTDI is 35.65 mGy and DLP is 624.41 mGy-cm. Automated exposure control was utilized for the study. A dose lowering technique was utilized adhering to the principles of ALARA. COMPARISON: No relevant prior studies available. FINDINGS: Brain: There are a few areas of decreased attenuation in the deep cerebral white matter consistent with mild small vessel ischemic/degenerative changes. The cerebral and cerebellar sulci are mildly prominent consistent with mild brain atrophy. No hemorrhage. Ventricles: Unremarkable. No ventriculomegaly. Bones/joints: Unremarkable. No acute fracture. Soft tissues: Unremarkable. Vasculature: Atherosclerotic disease. Sinuses: Mucosal thickening involving the small left maxillary sinus. The paranasal sinuses are otherwise well-aerated. Mastoid air cells: Unremarkable as visualized. No mastoid effusion. IMPRESSION: No acute intracranial process identified. Incidental underlying presumed chronic age-related findings, as noted above. Electronically signed by: Carlton Torres MD 08/01/23 21:29 PM
[2023-08-01] MEDS ORDERED: CLOPIDOGREL BISULFATE 300 MG TAB PO STA (22:00)
[2023-08-01] MEDS ORDERED: ASPIRIN CHEW 324 MG PO STA (22:00)
--- NOTE | 2023-08-01 22:01 | Communication Note ---
Date of Service: August 01, 2023 82 M HTN, DLD, CHF, had acute onset L face/arm numbness at 3:30pm today. No headache. Initial BP 160/93. Only exam deficit is sensory in the aforementioned distribution. 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 No acute findings on non-con CT. Possible stroke. Advised the following: - ASA 324mg + Plavix 300mg load (pending swallow screen) - MRI brain w/o contrast - Telemetry monitoring - TTE - Check lipids and A1c - Continue high-intensity statin - Permissive HTN up to 200/100 for first 24 hours - Can get routine neurology consult tomorrow
--- NOTE | 2023-08-01 22:05 | XRay Report ---
SINGLE VIEW CHEST CLINICAL HISTORY: Neurologic deficit. Stroke like symptoms. FINDINGS: An AP, portable, upright chest radiograph is compared to study dated 06/20/2022 and correla alicja with chest CT dated 08/11/2020. The examination is degraded by portable technique and apical lordo tic positioning. The patient is status post midline sternotomy. The heart is enlarged noting atherosc lerotic calcification of the thoracic aorta. There is pulmonary vascular congestion. Chronic intersti tial thickening is similar to previous. There is bibasilar scarring/atelectasis. No airspace consolid ation or large pleural effusion is identified. No pneumothorax is seen. The skeletal structures are o steopenic. The bony thorax is grossly intact. 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 IMPRESSION: Cardiomegaly with pulmonary vascular congestion. ACT 112: Negative or not required by law. Electronically signed by: Young Fernández M.D. 08/01/2023 10:04 PM
--- NOTE | 2023-08-02 00:09 | Emergency Department Note ---
History of Present Illness General Chief complaint: Stroke/CVA Symptoms Stated complaint: L Side Facial Numbness, L Hand Tingling Time Seen by Provider: 08/01/23 19:49 History of Present Illness Provider complaint: Numbness Onset (ago): hour(s) 4 (Symptoms began at 1500) Location: face, upper extremity and left Current Pain Intensity: 0 Associated symptoms: no confusion, no chest pain, no cough, no fever/chills, no headaches or no nausea/vomiting 82-year-old male presents emergency department for numbness. Patient reports at 3 PM today he started having numbness over his left side of the face and his left upper extremity. Patient states his symptoms have improved but he still feels a little numbness in his face. He reports no headaches. No difficulty speaking. No falls or traumas. No blood thinners. No headaches. No nausea or vomiting. No difficulty speaking. No difficulty walking. No seizures. Home Medications Medication Instructions Recorded Confirmed Type aspirin 81 mg tablet,delayed 81 mg PO DAILY 09/14/19 08/01/23 History release (Adult Aspirin Regimen) atorvastatin 40 mg tablet (Lipitor) 20 mg PO HS 09/14/19 08/01/23 History omega-3 fatty acids 1,000 mg 1,000 mg PO DAILY 09/14/19 08/01/23 History capsule (Fish Oil Concentrate) diclofenac sodium 1 % topical gel 2 g topical QID PRN Pain 08/11/20 08/01/23 History nitroglycerin 0.4 mg sublingual 0.4 mg sublingual Q5M PRN Chest 08/11/20 08/01/23 History tablet Pain [id number]-min 1 tab PO DAILY 08/11/20 08/01/23 History 3,300 unit-5 mg-200mg-75 unit tablet ER (ICaps) acetaminophen 650 mg 1,300 mg PO Q12H PRN Pain 11/15/20 08/01/23 History tablet,extended release (Tylenol Arthritis Pain) amoxicillin 500 mg capsule 2,000 mg PO DIRECTED PRN 1/2 HR 11/15/20 08/01/23 History PRIOR TO DENTAL APPT. furosemide 20 mg tablet (Lasix) 20 mg PO 3XWK 11/15/20 08/01/23 History metoprolol tartrate 50 mg tablet 50 mg PO BID 11/15/20 08/01/23 History albuterol sulfate 90 mcg/actuation 2 puff inhalation Q6H PRN 08/01/23 08/01/23 History aerosol inhaler Shortness Of Breath Or Wheezing dutasteride 0.5 mg capsule 0.5 mg PO DAILY 08/01/23 08/01/23 History isosorbide dinitrate 20 mg tablet 40 mg PO TID 08/01/23 08/01/23 History ranolazine 500 mg tablet,extended 500 mg PO Q12H 08/01/23 08/01/23 History release,12 hr Allergies Allergy/AdvReac Type Severity Reaction Status Date / Time bee venom protein (honey bee) Allergy Unknown Anaphylaxis Verified 08/01/23 22:42 Past Med/Surg History Medical History Sensorineural hearing loss of both ears History of paroxysmal supraventricular tachycardia s/p ablation PHYLLIS on CPAP HLD (hyperlipidemia) Bradycardia Diastolic heart failure Dyspnea and respiratory abnormalities HTN (hypertension) Surgical History S/P coronary artery stent placement Followup PCI to the [facility], third marginal, proximal RCA, distal RCA, and first RPL, October 2016 H/O hernia repair H/O Spinal surgery H/O knee surgery 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 Family History Family/Other Heart disease Other Stroke Social History Smoking Status: Never smoker Second Hand Exposure: No; Do You Dip or Chew Tobacco: No; Hx Alcohol Use: No Hx Substance Use: No Preferred Language: Liberian Communication Ability: Effective Oncology Registrar Required: No Beliefs That Will Affect Care: None marital status: Current Living Situation: Spouse Feels Safe at Home: Yes Assistive Devices: CPAP Physical Exam Vital Signs Vital Signs - 24 hr 08/01/23 19:32 08/01/23 19:37 08/01/23 19:56 Temperature 36.7 C Temperature Source Oral Pulse Rate 64 65 Pulse Rate [Apical] Pulse Rhythm Regular Pulse Strength Normal Respiratory Rate 18 Respiratory Effort / Characteristics Non-Labored Respiratory Depth Normal Respiratory Pattern Regular Blood Pressure 160/93 H Blood Pressure [Right Arm] Blood Pressure Mean 115 Blood Pressure Mean [Right Arm] Pulse Oximetry 96 Oxygen Delivery Method Room Air Room Air Sepsis Recent Fever Within 48 Hours No Sepsis New/Unexplained Change in Mental Status No Sepsis Action Taken by Nursing No Action Required 08/01/23 20:07 08/01/23 23:41 Temperature Temperature Source Pulse Rate 62 Pulse Rate [Apical] 58 L Pulse Rhythm Pulse Strength Respiratory Rate 20 Respiratory Effort / Characteristics Non-Labored Respiratory Depth Normal Respiratory Pattern Regular Blood Pressure Blood Pressure [Right Arm] 158/84 H Blood Pressure Mean Blood Pressure Mean [Right Arm] 108 Pulse Oximetry 94 Oxygen Delivery Method Room Air Sepsis Recent Fever Within 48 Hours Sepsis New/Unexplained Change in Mental Status Sepsis Action Taken by Nursing Physical Exam GENERAL: oriented to person, place, and time. appears well-developed and well- nourished. HENT: Exam performed. - Head: Normocephalic and atraumatic. EYES: Conjunctivae and EOM are normal. Right eye exhibits no discharge. Left eye exhibits no discharge. No scleral icterus. NECK: Normal range of motion. Neck supple. No JVD present. CV: Normal rate, regular rhythm, normal heart sounds and intact distal pulses. There is no peripheral edema. Palpable radial pulses bue. PULM/CHEST: Effort normal and breath sounds normal. No respiratory distress. No stridor. no wheezes. no rales. ABD: The abdomen is soft. There is no tenderness. NEURO:NIHSS 0 SKIN: Skin is warm and dry. He is not diaphoretic. PSYCH: normal mood and affect. Behavior is normal. Judgment and thought content normal. Course Course 1948: The patient was evaluated in room B6. A complete history and physical exam was performed Cardiac monitoring: An order was placed for continuous cardiac monitoring. The monitor shows a rate of 60 with sinus rhythm interpreted by me Patient has NIHSS of 0 currently, no code stroke called as patient's symptoms have resolved objectively. 2158: Vital signs stable. CT of the head shows no ICH. CTA of the head and neck shows good amount of atherosclerosis. Discussed the case with Dr. King on-call [facility] neurology and read him the CT angio report verbatim. He states he could be that the patient had a small stroke versus TIA and recommends loading patient on aspirin 324 Plavix 300 admitting the patient for stroke workup. Patient will be admitted to the [facility] hospitalist team. Administered Medications Discontinued Medications Aspirin (Aspirin Chew 324 Mg) 324 mg PO NOW STA Stop: 08/01/23 22:01 Last Admin: 08/01/23 22:14 Dose: 324 mg Documented By: AEF Clopidogrel Bisulfate (Clopidogrel Bisulfate 300 Mg Tab) 300 mg PO NOW STA Stop: 08/01/23 22:01 Last Admin: 08/01/23 22:14 Dose: 300 mg Documented By: BRIAN Ioversol (Optiray 320 125ml) 118 ml IV ONCE ONE Stop: 08/01/23 21:00 Last Admin: 08/01/23 20:59 Dose: 118 ml Documented By: JEAN MARIE Medical Decision Making Laboratory Data Attestation: I reviewed the patient's lab results. 08/01/23 19:30 08/01/23 19:30 Lab Results 08/01/23 08/01/23 08/01/23 Range/Units 19:30 19:41 20:18 WBC 6.54 (4.8-10.8) K/ul RBC 4.31 L (4.70-6.10) M/uL Hgb 13.4 L (14.0-18.0) g/dl Hct 39.4 L (42.0-52.0) % MCV 91.4 (80.0-100.0) fL MCH 31.1 (25.0-34.0) pg MCHC 34.0 (32.0-36.0) g/dL RDW Std Deviation 44.6 (36.4-46.3) fL RDW Coeff of [place] 13.2 (11.5-14.5) % Plt Count 147 (130-400) K/uL MPV 9.8 (9.4-12.4) fL Immature Gran % (Auto) 0.6 % Neut % (Auto) 60.2 % Lymph % (Auto) 24.0 % [place] % (Auto) 11.2 % Eos % (Auto) 3.5 % Baso % (Auto) 0.5 % Neut # (Auto) 3.94 (1.40-6.50) K/uL Lymph # (Auto) 1.57 (1.20-3.40) K/uL [place] # (Auto) 0.73 H (0.11-0.59) K/uL Eos # (Auto) 0.23 (0.00-0.50) K/uL Baso # (Auto) 0.03 (0.00-0.20) K/uL Immature Gran # (Auto) 0.04 (0.01-0.20) K/uL PT 11.5 (9.0-12.0) Seconds INR 1.1 (0.9-1.1) APTT 27 (21-31) Seconds PTT Ratio 1.0 Sodium 141 (136-145) mmol/L Potassium 4.1 (3.5-5.1) mmol/L Chloride 108 H (98-107) mmol/L Carbon Dioxide 26 (21-32) mmol/L Anion Gap 7 (3-11) BUN 38 H (6-23) mg/dl Creatinine 1.28 (0.6-1.4) mg/dl Est Cr Clr Drug Dosing 47.9 ml/min Est GFR ( Amer) 59.2 ml/min Est GFR (Non-Af Amer) 51.1 ml/min BUN/Creatinine Ratio 29.7 H (10-20) Glucose 102 H (70-99(Fasting)) mg/dl POC Glucose 102 H (70-99) mg/dl Calcium 9.0 (8.6-10.3) mg/dl Magnesium 2.0 (1.7-2.4) mg/dl Total Bilirubin 0.4 (0.2-1.0) mg/dl AST 20 (13-39) U/L ALT 17 (7-52) U/L Alkaline Phosphatase 108 H (34-104) U/L Troponin I High Sens 13.5 (0-20) pg/ml Total Protein 7.1 (6.0-8.3) gm/dl Albumin 3.9 (3.4-5.0) gm/dl Globulin 3.2 (2.5-4.0) gm/dl Albumin/Globulin Ratio 1.2 (0.9-2) Blood Type O Positive Antibody Screen NEGATIVE Imaging Data Attestation: I personally reviewed and interpreted this imaging study as follows: My Impression: Chest x-ray negative. Airway clear. No pneumothorax. No consolidation. cardiomegaly with no cephalization.. No free air under the diaphragm. No fractures of the skeletal structures. Radiologist's Impression: Chest X-Ray 08/01/23 19:49 SINGLE VIEW CHEST CLINICAL HISTORY: Neurologic deficit. Stroke like symptoms. FINDINGS: An AP, portable, upright chest radiograph is compared to study dated 06/20/2022 and correlated with chest CT dated 08/11/2020. The examination is degraded by portable technique and apical lordotic positioning. The patient is status post midline sternotomy. The heart is enlarged noting atherosclerotic calcification of the thoracic aorta. There is pulmonary vascular congestion. Chronic interstitial thickening is similar to previous. There is bibasilar scarring/atelectasis. No airspace consolidation or large pleural effusion is identified. No pneumothorax is seen. The skeletal structures are osteopenic. The bony thorax is grossly intact. 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 IMPRESSION: Cardiomegaly with pulmonary vascular congestion. ACT 112: Negative or not required by law. Electronically signed by: Young Fernández M.D. 08/01/2023 10:[address] 08/01/23 19:49 Exam(s): CT HEAD Without Contrast EXAM: CT Head Without Intravenous Contrast CLINICAL HISTORY: neuro deficit, acute stroke suspected. TECHNIQUE: Axial computed tomography images of the head/brain without intravenous contrast. CTDI is 35.65 mGy and DLP is 624.41 mGy-cm. Automated exposure control was utilized for the study. A dose lowering technique was utilized adhering to the principles of ALARA. COMPARISON: No relevant prior studies available. FINDINGS: Brain: There are a few areas of decreased attenuation in the deep cerebral white matter consistent with mild small vessel ischemic/degenerative changes. The cerebral and cerebellar sulci are mildly prominent consistent with mild brain atrophy. No hemorrhage. Ventricles: Unremarkable. No ventriculomegaly. Bones/joints: Unremarkable. No acute fracture. Soft tissues: Unremarkable. Vasculature: Atherosclerotic disease. Sinuses: Mucosal thickening involving the small left maxillary sinus. The paranasal sinuses are otherwise well-aerated. Mastoid air cells: Unremarkable as visualized. No mastoid effusion. IMPRESSION: No acute intracranial process identified. Incidental underlying presumed chronic age-related findings, as noted above. Electronically signed by: Carlton Torres MD 08/01/23 21:29 PM Head CTA 08/01/23 19:49 Exam(s): CTA HEAD With Contrast IV Amt: 118 ml opti 320 EXAM: CT Angiography Head With Intravenous Contrast CLINICAL HISTORY: neuro deficit, acute stroke suspected. TECHNIQUE: Axial computed tomographic angiography images of the head with intravenous contrast. CTDI is 14.33 mGy and DLP is 548.85 mGy-cm. Automated exposure control was utilized for the study. A dose lowering technique was utilized adhering to the principles of ALARA. MIP reconstructed images were created and reviewed. CONTRAST: Patient received 118 ml opti 320 of IV contrast COMPARISON: No relevant prior studies available. FINDINGS: Right internal carotid artery: Prominent atherosclerotic calcification of the cavernous and supraclinoid segments of the right internal carotid artery. Mild to moderate narrowing of the distal internal carotid segment suspected. No occlusion. The petrous segment is patent. No aneurysm. Right anterior cerebral artery: Unremarkable. No occlusion or significant stenosis. No aneurysm. Right middle cerebral artery: Unremarkable. No occlusion or significant stenosis. No aneurysm. Right posterior cerebral artery: Unremarkable. No occlusion or significant stenosis. No aneurysm. Right vertebral artery: Unremarkable as visualized. Left internal carotid artery: Moderate atherosclerotic calcification of the cavernous and supraclinoid segments of the left internal carotid artery. Mild narrowing of the distal internal carotid segment. The left petrous segment is patent. No aneurysm. Left anterior cerebral artery: Unremarkable. No occlusion or significant stenosis. No aneurysm. Left middle cerebral artery: Unremarkable. No occlusion or significant stenosis. No aneurysm. Left posterior cerebral artery: Unremarkable. No occlusion or significant stenosis. No aneurysm. Left vertebral artery: Unremarkable as visualized. Basilar artery: Unremarkable. No occlusion or significant stenosis. No aneurysm. Dural sinuses/cerebral veins: The dural sinuses are unremarkable. Brain: No abnormal parenchymal enhancement. IMPRESSION: 1. Atherosclerotic calcification of the bilateral cavernous and supraclinoid internal carotid arteries with mild narrowing distally on the left and mild to moderate narrowing distally on the right. No occlusion or critical stenosis. 2. Otherwise negative intracranial CTA examination. Electronically signed by: Carlton Torres MD 08/01/23 21:21 PM Neck CTA 08/01/23 19:49 Exam(s): CTA NECK With Contrast IV Amt: 118 ml opti 320 EXAM: CT Angiography Neck With Intravenous Contrast CLINICAL HISTORY: neuro deficit, acute stroke suspected. TECHNIQUE: Routine carotid CT angiography protocol was performed with intravenous contrast. NASCET criteria using the distal ICAs for comparison were used for evaluation of stenoses. CTDI is 26.99 mGy and DLP is 13.49 mGy-cm. Automated exposure control was utilized for the study. A dose lowering technique was utilized adhering to the principles of ALARA. MIP reconstructed images were created and reviewed. CONTRAST: Patient received 118 ml opti 320 of IV contrast COMPARISON: None. FINDINGS: VASCULATURE: Right common carotid artery: Unremarkable. No occlusion or significant stenosis. No dissection. Right internal carotid artery: Atherosclerotic calcification of the proximal right internal carotid artery, extending to the carotid bifurcation. No significant narrowing by NASCET criteria. The mid to distal right internal carotid artery is patent. Right external carotid artery: Unremarkable. No occlusion. 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 Left common carotid artery: Unremarkable. No occlusion or significant stenosis. No dissection. Left internal carotid artery: Atherosclerotic calcification of the proximal left internal carotid artery, extending to the carotid bifurcation. No significant narrowing by NASCET criteria. The mid to distal right internal carotid artery is patent. No dissection. Left external carotid artery: Unremarkable. No occlusion. Left vertebral artery: Unremarkable. No occlusion or significant stenosis. No dissection. Brachiocephalic and subclavian arteries: There is a bovine type I branching pattern of the proximal great vessels. Atherosclerotic calcification without significant ostial stenosis. Aorta: Atherosclerotic calcification of the aortic arch without dissection or aneurysm. Postoperative changes consistent with prior CABG. NECK: Bones/joints: Unremarkable. No acute fracture. Soft tissues: Unremarkable. Lung apices: Clear. CAROTID STENOSIS REFERENCE USING NASCET CRITERIA: % ICA stenosis = (1 - narrowest ICA diameter/diameter of distal cervical ICA) x 100. Mild - <50% stenosis. Moderate - 50-69% stenosis. Severe - 70-94% stenosis. Near occlusion - 95-99% stenosis. Occluded - 100% stenosis. IMPRESSION: 1. 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 The left vertebral artery is widely patent. 2. Atherosclerotic calcification of both carotid bifurcations without significant narrowing by NASCET criteria. The common carotid and internal carotid arteries are otherwise patent. Electronically signed by: Carlton Torres MD 08/01/23 21:28 PM ECG Data Attestation: I personally reviewed and interpreted this ECG as follows: Rate (beats per minute): 61 Rhythm: + normal sinus ECG ST segments: + Normal ST segments Additional Comments: OH is 160 QRS 130 QTc 444 MDM Narrative 1948: The patient was evaluated in room B6. A complete history and physical exam was performed Cardiac monitoring: An order was placed for continuous cardiac monitoring. The monitor shows a rate of 60 with sinus rhythm interpreted by me Patient has NIHSS of 0 currently, no code stroke called as patient's symptoms have resolved objectively. 2158: Vital signs stable. CT of the head shows no ICH. CTA of the head and neck shows good amount of atherosclerosis. Discussed the case with Dr. King on-call [facility] neurology and read him the CT angio report verbatim. He states he could be that the patient had a small stroke versus TIA and recommends loading patient on aspirin 324 Plavix 300 admitting the patient for stroke workup. Patient will be admitted to the [facility] hospitalist team. Impression & Plan TIA (transient ischemic attack) Discharge Plan Visit Data Chief Complaint: Stroke/CVA Symptoms Stated Complaint: L Side Facial Numbness, L Hand Tingling ED Provider: Tamir Macdonald Discharge Problem: TIA (transient ischemic attack) Patient Disposition: Admitted As Inpatient Forms Stand Alone Forms: [facility] Prescriptions Prescriptions: No Action aspirin [Adult Aspirin Regimen] 81 mg tablet,delayed release (DR/EC) 81 mg PO DAILY atorvastatin [Lipitor] 40 mg tablet 20 mg PO HS omega-3 fatty acids [Fish Oil Concentrate] 1,000 mg capsule 1,000 mg PO DAILY nitroglycerin 0.4 mg Tablet, Sublingual 0.4 mg sublingual Q5M PRN (Reason: Chest Pain) ICaps [id number] Tablet Extended Release 1 tab PO DAILY diclofenac sodium 1 % Gel 2 g TOPICAL QID PRN (Reason: Pain) amoxicillin 500 mg Capsule 2,000 mg PO DIRECTED PRN (Reason: 1/2 HR PRIOR TO DENTAL APPT.) acetaminophen [Tylenol Arthritis Pain] 650 mg Tablet Extended Release 1,300 mg PO Q12H PRN (Reason: Pain) metoprolol tartrate 50 mg Tablet 50 mg PO BID furosemide [Lasix] 20 mg Tablet 20 mg PO 3XWK Rx Instructions: TAKES MON, WED, & FRI. & prn isosorbide dinitrate 20 mg Tablet 40 mg PO TID albuterol sulfate 90 mcg/actuation Hfa Aerosol Inhaler 2 puff INHALATION Q6H PRN (Reason: Shortness Of Breath Or Wheezing) dutasteride 0.5 mg Capsule 0.5 mg PO DAILY ranolazine [Ranexa] 500 mg Tablet Extended Release 12 Hr 500 mg PO Q12H Referrals Referrals: Kamari Betancourt MD [Primary Care Provider] -
--- NOTE | 2023-08-02 00:28 | History & Physical Report ---
Date of Service August 02, 2023 Assessment & Plan (1) TIA (transient ischemic attack): Plan: Possible ASA failure Uncontrolled hypertension secondary to above chronic diastolic heart failure, some congestion on x-ray hx CAD status post CABG/stent/PVD chronic LBBB SVT status post ablation hyperlipidemia, on statin Rx COPD, PHYLLIS on BiPAP, patient with usual SOB symptoms prostate cancer status post radiation renal oncocytoma status post surgery OBS Medical telemetry Neurochecks Add Plavix to aspirin for stroke prophylaxis in the setting of possible aspirin failure Permissive hypertension until acute stroke ruled out MRI brain, TTE Neurology consult Re: TIA DVT prophylaxis. Lovenox subcu Full code Text document was generated using [employer] voice recognition software. It may contain grammatical or spelling errors. Kindly contact undersigned for clarification of any documentation item in question. History of Present Illness Chief Complaint: Left facial, left upper extremity, numbness Primary Care Provider: Kamari Betancourt MD History obtained from patient and records. Medical history significant for chronic diastolic heart failure (50%, TTE 2022), CAD status post CABG/stent, chronic LBBB, SVT status post ablation, PVD, hypertension, hyperlipidemia, COPD, PHYLLIS on BiPAP, prostate cancer status post radiation, renal oncocytoma status post surgery. Last confinement July 2020 for chest pain. This afternoon, patient noted sudden onset left face and left upper arm numbness without headache symptoms. No chest pain, usual SOB as per patient No prior episodes. Patient compliant with home aspirin. Symptoms currently resolved at the ER. 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 Allergies Allergy/AdvReac Type Severity Reaction Status Date / Time bee venom protein (honey bee) Allergy Unknown Anaphylaxis Verified 08/01/23 22:42 Home Medications Medication Instructions Recorded Confirmed Type aspirin 81 mg tablet,delayed 81 mg PO DAILY 09/14/19 08/01/23 History release (Adult Aspirin Regimen) atorvastatin 40 mg tablet (Lipitor) 20 mg PO HS 09/14/19 08/01/23 History omega-3 fatty acids 1,000 mg 1,000 mg PO DAILY 09/14/19 08/01/23 History capsule (Fish Oil Concentrate) diclofenac sodium 1 % topical gel 2 g topical QID PRN Pain 08/11/20 08/01/23 History nitroglycerin 0.4 mg sublingual 0.4 mg sublingual Q5M PRN Chest 08/11/20 08/01/23 History tablet Pain [id number]-min 1 tab PO DAILY 08/11/20 08/01/23 History 3,300 unit-5 mg-200mg-75 unit tablet ER (ICaps) acetaminophen 650 mg 1,300 mg PO Q12H PRN Pain 11/15/20 08/01/23 History tablet,extended release (Tylenol Arthritis Pain) amoxicillin 500 mg capsule 2,000 mg PO DIRECTED PRN 1/2 HR 11/15/20 08/01/23 History PRIOR TO DENTAL APPT. furosemide 20 mg tablet (Lasix) 20 mg PO 3XWK 11/15/20 08/01/23 History metoprolol tartrate 50 mg tablet 50 mg PO BID 11/15/20 08/01/23 History albuterol sulfate 90 mcg/actuation 2 puff inhalation Q6H PRN 08/01/23 08/01/23 History aerosol inhaler Shortness Of Breath Or Wheezing dutasteride 0.5 mg capsule 0.5 mg PO DAILY 08/01/23 08/01/23 History isosorbide dinitrate 20 mg tablet 40 mg PO TID 08/01/23 08/01/23 History ranolazine 500 mg tablet,extended 500 mg PO Q12H 08/01/23 08/01/23 History release,12 hr Past Med/Surg History Medical History Sensorineural hearing loss of both ears History of paroxysmal supraventricular tachycardia s/p ablation PHYLLIS on CPAP HLD (hyperlipidemia) Bradycardia Diastolic heart failure Dyspnea and respiratory abnormalities HTN (hypertension) Surgical History S/P coronary artery stent placement Followup PCI to the [facility], third marginal, proximal RCA, distal RCA, and first RPL, October 2016 H/O hernia repair H/O Spinal surgery H/O knee surgery 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 Family History Family/Other Heart disease Other Stroke Social History Smoking Status: Never smoker Second Hand Exposure: No; Do You Dip or Chew Tobacco: No; Tobacco Cessation Education Requested by Patient: No Hx Alcohol Use: No Hx Substance Use: No Preferred Language: Pashto Communication Ability: Effective Dance Historian Required: No Beliefs That Will Affect Care: None marital status: Current Living Situation: Spouse Other Information That Helps Us Care for You: No Feels Safe at Home: Yes Safety Concerns: Feels Safe At This Time Assistive Devices: Hearing Aid - Bilateral Review of Systems Review of Systems: As per HPI, all other systems reviewed and negative Physical Exam Physical Exam: GENERAL: Comfortable, pleasant, obese, no respiratory distress SKIN: Normal color, warm HEENT: [place] palpebral conjunctivae, no ptosis, dry buccal mucosa NECK : Supple, short neck, no tenderness CHEST : CTA, no tenderness HEART : RRR, no obvious murmurs ABDOMEN: Some distention, nontender EXTREMITIES : Minimal LE swelling, no LE tenderness, no other conspicuous deformities noted NEUROLOGIC : Coherent, no facial asymmetry, no pronator drift, MMTS BLE/BLE 4/5, gait and stance not assessed Results & Data Results & Data Vital Signs (Past 12 Hours) Vital Signs Temp Pulse Pulse Resp BP BP Pulse Ox 08/02/23 00:00 75 19 198/85 H 98 08/01/23 23:41 62 08/01/23 20:07 58 L 20 158/84 H 94 08/01/23 19:56 08/01/23 19:37 65 08/01/23 19:32 36.7 C 64 18 160/93 H 96 O2 Del Method 08/02/23 00:00 08/01/23 23:41 08/01/23 20:07 Room Air 08/01/23 19:56 Room Air 08/01/23 19:37 08/01/23 19:32 Room Air Laboratory Results Laboratory Results WBC 6.54 K/ul (4.8-10.8) 08/01/23 19:30 RBC 4.31 M/uL (4.70-6.10) L 08/01/23 19:30 Hgb 13.4 g/dl (14.0-18.0) L 08/01/23 19:30 Hct 39.4 % (42.0-52.0) L 08/01/23: MCV 91.4 fL (80.0-100.0) 08/01/23: MCH 31.1 pg (25.0-34.0) 08/01/23: MCHC 34.0 g/dL (32.0-36.0) 08/01/23: RDW Std Deviation 44.6 fL (36.4-46.3) 08/01/23 RDW Coeff of [place] 13.2 % (11.5-14.5) 08/01/23: Plt Count 147 K/uL (130-400) 08/01/23: MPV 9.8 fL (9.4-12.4) 08/01/23: Immature Gran % (Auto) 0.6 % 08/01/23: Neut % (Auto) 60.2 % 08/01/23: Lymph % (Auto) 24.0 % 08/01/23: [place] % (Auto) 11.2 % 08/01/23: Eos % (Auto) 3.5 % 08/01/23: Baso % (Auto) 0.5 % 08/01/23: Neut # (Auto) 3.94 K/uL (1.40-6.50) 08/01/23: Lymph # (Auto) 1.57 K/uL (1.20-3.40) 08/01/23: [place] # (Auto) 0.73 K/uL (0.11-0.59) H 08/01/23: Eos # (Auto) 0.23 K/uL (0.00-0.50) 08/01/23: Baso # (Auto) 0.03 K/uL (0.00-0.20) 08/01/23: Immature Gran # (Auto) 0.04 K/uL (0.01-0.20) 08/01/23: PT 11.5 Seconds (9.0-12.0) 08/01/23: INR 1.1 (0.9-1.1) 08/01/23:30 APTT 27 Seconds (21-31) 08/01/23 19:30 PTT Ratio 1.0 08/01/23 19:30 Sodium 141 mmol/L (136-145) 08/01/23 19:30 Potassium 4.1 mmol/L (3.5-5.1) 08/01/23 19:30 Chloride 108 mmol/L (98-107) H 08/01/23 19:30 Carbon Dioxide 26 mmol/L (21-32) 08/01/23 19:30 Anion Gap 7 (3-11) 08/01/23 19:30 BUN 38 mg/dl (6-23) H 08/01/23 19:30 Creatinine 1.28 mg/dl (0.6-1.4) 08/01/23 19:30 Est Cr Clr Drug Dosing 47.9 ml/min 08/01/23 19:30 Est GFR ( Amer) 59.2 ml/min 08/01/23 19:30 Est GFR (Non-Af Amer) 51.1 ml/min 08/01/23 19:30 BUN/Creatinine Ratio 29.7 (10-20) H 08/01/23 19:30 Glucose 102 mg/dl (70-99(Fasting)) H 08/01/23 19:30 POC Glucose 102 mg/dl (70-99) H 08/01/23 19:41 Calcium 9.0 mg/dl (8.6-10.3) 08/01/23 19:30 Magnesium 2.0 mg/dl (1.7-2.4) 08/01/23 19:30 Total Bilirubin 0.4 mg/dl (0.2-1.0) 08/01/23 19:30 AST 20 U/L (13-39) 08/01/23 19:30 ALT 17 U/L (7-52) 08/01/23 19:30 Alkaline Phosphatase 108 U/L (34-104) H 08/01/23 19:30 Troponin I High Sens 13.5 pg/ml (0-20) 08/01/23 19:30 Total Protein 7.1 gm/dl (6.0-8.3) 08/01/23 19:30 Albumin 3.9 gm/dl (3.4-5.0) 08/01/23 19:30 Globulin 3.2 gm/dl (2.5-4.0) 08/01/23 19:30 Albumin/Globulin Ratio 1.2 (0.9-2) 08/01/23 19:30 Blood Type O Positive 08/01/23 20:18 Antibody Screen NEGATIVE 08/01/23 20:18 Impressions Chest X-Ray 08/01/23 19:49 SINGLE VIEW CHEST CLINICAL HISTORY: Neurologic deficit. Stroke like symptoms. FINDINGS: An AP, portable, upright chest radiograph is compared to study dated 06/20/2022 and correlated with chest CT dated 08/11/2020. The examination is degraded by portable technique and apical lordotic positioning. The patient is status post midline sternotomy. The heart is enlarged noting atherosclerotic calcification of the thoracic aorta. There is pulmonary vascular congestion. Chronic interstitial thickening is similar to previous. There is bibasilar scarring/atelectasis. No airspace consolidation or large pleural effusion is identified. No pneumothorax is seen. The skeletal structures are osteopenic. The bony thorax is grossly intact. 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 IMPRESSION: Cardiomegaly with pulmonary vascular congestion. ACT 112: Negative or not required by law. Electronically signed by: Young Fernández M.D. 08/01/2023 10:[address] 08/01/23 19:49 Exam(s): CT HEAD Without Contrast EXAM: CT Head Without Intravenous Contrast CLINICAL HISTORY: neuro deficit, acute stroke suspected. TECHNIQUE: Axial computed tomography images of the head/brain without intravenous contrast. CTDI is 35.65 mGy and DLP is 624.41 mGy-cm. Automated exposure control was utilized for the study. A dose lowering technique was utilized adhering to the principles of ALARA. COMPARISON: No relevant prior studies available. FINDINGS: Brain: There are a few areas of decreased attenuation in the deep cerebral white matter consistent with mild small vessel ischemic/degenerative changes. The cerebral and cerebellar sulci are mildly prominent consistent with mild brain atrophy. No hemorrhage. Ventricles: Unremarkable. No ventriculomegaly. Bones/joints: Unremarkable. No acute fracture. Soft tissues: Unremarkable. Vasculature: Atherosclerotic disease. Sinuses: Mucosal thickening involving the small left maxillary sinus. The paranasal sinuses are otherwise well-aerated. Mastoid air cells: Unremarkable as visualized. No mastoid effusion. IMPRESSION: No acute intracranial process identified. Incidental underlying presumed chronic age-related findings, as noted above. Electronically signed by: Carlton Torres MD 08/01/23 21:29 PM Head CTA 08/01/23 19:49 Exam(s): CTA HEAD With Contrast IV Amt: 118 ml opti 320 EXAM: CT Angiography Head With Intravenous Contrast CLINICAL HISTORY: neuro deficit, acute stroke suspected. TECHNIQUE: Axial computed tomographic angiography images of the head with intravenous contrast. CTDI is 14.33 mGy and DLP is 548.85 mGy-cm. Automated exposure control was utilized for the study. A dose lowering technique was utilized adhering to the principles of ALARA. MIP reconstructed images were created and reviewed. CONTRAST: Patient received 118 ml opti 320 of IV contrast COMPARISON: No relevant prior studies available. FINDINGS: Right internal carotid artery: Prominent atherosclerotic calcification of the cavernous and supraclinoid segments of the right internal carotid artery. Mild to moderate narrowing of the distal internal carotid segment suspected. No occlusion. The petrous segment is patent. No aneurysm. Right anterior cerebral artery: Unremarkable. No occlusion or significant stenosis. No aneurysm. Right middle cerebral artery: Unremarkable. No occlusion or significant stenosis. No aneurysm. Right posterior cerebral artery: Unremarkable. No occlusion or significant stenosis. No aneurysm. Right vertebral artery: Unremarkable as visualized. Left internal carotid artery: Moderate atherosclerotic calcification of the cavernous and supraclinoid segments of the left internal carotid artery. Mild narrowing of the distal internal carotid segment. The left petrous segment is patent. No aneurysm. Left anterior cerebral artery: Unremarkable. No occlusion or significant stenosis. No aneurysm. Left middle cerebral artery: Unremarkable. No occlusion or significant stenosis. No aneurysm. Left posterior cerebral artery: Unremarkable. No occlusion or significant stenosis. No aneurysm. Left vertebral artery: Unremarkable as visualized. Basilar artery: Unremarkable. No occlusion or significant stenosis. No aneurysm. Dural sinuses/cerebral veins: The dural sinuses are unremarkable. Brain: No abnormal parenchymal enhancement. IMPRESSION: 1. Atherosclerotic calcification of the bilateral cavernous and supraclinoid internal carotid arteries with mild narrowing distally on the left and mild to moderate narrowing distally on the right. No occlusion or critical stenosis. 2. Otherwise negative intracranial CTA examination. Electronically signed by: Carlton Torres MD 08/01/23 21:21 PM Neck CTA 08/01/23 19:49 Exam(s): CTA NECK With Contrast IV Amt: 118 ml opti 320 EXAM: CT Angiography Neck With Intravenous Contrast CLINICAL HISTORY: neuro deficit, acute stroke suspected. TECHNIQUE: Routine carotid CT angiography protocol was performed with intravenous contrast. NASCET criteria using the distal ICAs for comparison were used for evaluation of stenoses. CTDI is 26.99 mGy and DLP is 13.49 mGy-cm. Automated exposure control was utilized for the study. A dose lowering technique was utilized adhering to the principles of ALARA. MIP reconstructed images were created and reviewed. CONTRAST: Patient received 118 ml opti 320 of IV contrast COMPARISON: None. FINDINGS: VASCULATURE: Right common carotid artery: Unremarkable. No occlusion or significant stenosis. No dissection. Right internal carotid artery: Atherosclerotic calcification of the proximal right internal carotid artery, extending to the carotid bifurcation. No significant narrowing by NASCET criteria. The mid to distal right internal carotid artery is patent. Right external carotid artery: Unremarkable. No occlusion. 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 Left common carotid artery: Unremarkable. No occlusion or significant stenosis. No dissection. Left internal carotid artery: Atherosclerotic calcification of the proximal left internal carotid artery, extending to the carotid bifurcation. No significant narrowing by NASCET criteria. The mid to distal right internal carotid artery is patent. No dissection. Left external carotid artery: Unremarkable. No occlusion. Left vertebral artery: Unremarkable. No occlusion or significant stenosis. No dissection. Brachiocephalic and subclavian arteries: There is a bovine type I branching pattern of the proximal great vessels. Atherosclerotic calcification without significant ostial stenosis. Aorta: Atherosclerotic calcification of the aortic arch without dissection or aneurysm. Postoperative changes consistent with prior CABG. NECK: Bones/joints: Unremarkable. No acute fracture. Soft tissues: Unremarkable. Lung apices: Clear. CAROTID STENOSIS REFERENCE USING NASCET CRITERIA: % ICA stenosis = (1 - narrowest ICA diameter/diameter of distal cervical ICA) x 100. Mild - <50% stenosis. Moderate - 50-69% stenosis. Severe - 70-94% stenosis. Near occlusion - 95-99% stenosis. Occluded - 100% stenosis. IMPRESSION: 1. 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 The left vertebral artery is widely patent. 2. Atherosclerotic calcification of both carotid bifurcations without significant narrowing by NASCET criteria. The common carotid and internal carotid arteries are otherwise patent. Electronically signed by: Carlton Torres MD 08/01/23 21:28 PM Diagnostic Findings EKG as per my interpretation : Rate 60, NSR, LAD, LAFB, LVH, T wave abnormalities lateral leads, PVCs
[2023-08-02] MEDS ORDERED: PHARMACIST DISCHARGE MED REC CONSULT PRN (00:31)
[2023-08-02] MEDS ORDERED: oxyCODONE HCL IR 5 MG TAB (IMMEDIATE RELEASE) PO PRN (00:34)
[2023-08-02] MEDS ORDERED: LORazepam 0.5 MG TAB PO PRN (00:34)
[2023-08-02] MEDS ORDERED: PROMETHAZINE HCL 6.25 MG in SODIUM CHLORIDE 0.9% 50 ML IV PRN (00:34)
--- NOTE | 2023-08-02 02:21 | Magnetic Resonance Report ---
Exam(s): MRI HEAD Without Contrast EXAM: MR Head Without Intravenous Contrast CLINICAL HISTORY: tia. TECHNIQUE: Magnetic resonance images of the head/brain without intravenous contrast in multiple planes. COMPARISON: CT head without contrast performed 08/01/2023 at 2052 hrs. FINDINGS: Brain: Diffusion-weighted imaging is negative for acute or subacute infarct. Abnormal T2 signal in the deep cerebral white matter is consistent with small vessel ischemic/degenerative changes. The cerebral and cerebellar sulci are prominent consistent with brain atrophy. No hemorrhage. No mass effect. Ventricles: Unremarkable. No ventriculomegaly. Bones/joints: Unremarkable. No acute fracture. Sinuses: Mucosal thickening noted involving the left maxillary sinus. The remaining paranasal sinuses are well-aerated. No acute sinusitis. Mastoid air cells: Unremarkable as visualized. No mastoid effusion. Orbits: Unremarkable as visualized. IMPRESSION: 1. No evidence of acute or subacute infarct. 2. Chronic small vessel ischemic/degenerative changes. 3. Chronic cerebral and cerebellar atrophy. Electronically signed by: Carlton Torres MD 08/02/23 02:21 AM
[2023-08-02 05:19] LABS: Basophils # (auto) 0.03 K/uL (0.00-0.20); Basophils % (auto) 0.4 %; Eosinophils # (auto) 0.29 K/uL (0.00-0.50); Eosinophils % (auto) 4.3 %; Hematocrit (blood only) 41.1 % (42.0-52.0); Hemoglobin 14.2 g/dl (14.0-18.0); Immature Granulocytes # (auto) 0.03 K/uL (0.01-0.20); Immature Granulocytes % (auto) 0.4 %; Lymphocytes # (auto) 1.59 K/uL (1.20-3.40); Lymphocytes % (auto) 23.8 %; Mean Corpuscular Hemoglobin 31.4 pg (25.0-34.0); Mean Corpuscular Hgb Conc 34.5 g/dL (32.0-36.0); Mean Corpuscular Volume 90.9 fL (80.0-100.0); Mean Platelet Volume 9.5 fL (9.4-12.4); Monocytes # (auto) 0.77 K/uL (0.11-0.59); Monocytes % (auto) 11.5 %; Neutrophils # (auto) 3.96 K/uL (1.40-6.50); Neutrophils % (auto) 59.6 %; Platelet Count 137 K/uL (130-400); RDW Standard Deviation 42.8 fL (36.4-46.3); Red Blood Count 4.52 M/uL (4.70-6.10); White Blood Count 6.67 K/ul (4.8-10.8)
[2023-08-02 05:49] LABS: BUN Creatinine Ratio 26.7 (10-20); Chol HDL Ratio 3.3 (0-5); Creatinine Clr Calc Pharmacy 52.9 ml/min; Est GFR (African American) 66.7 ml/min; Est GFR (Non-African American) 57.5 ml/min
[2023-08-02 07:00] LABS: Estimated Average Glucose 120 mg/dl; Hemoglobin A1C 5.8 % (4.5-5.6)
--- OUTSIDE RECORDS SUMMARY | 2023-08-02 07:29 | External Medical Summary | Summary of Care ---
Author Name Unknown Organization [facility] Address [address] [facility] [place] [address] Phone [phone] Care Team Providers Care Heading Matcher And Assembler Name Role Phone Kamari Betancourt MD Primary Care Provider [phone] Reason for Visit * Reason Comments eRx-Medication Refill Encounter Details Date Type Department Care Team (Late st Contact Info) Description 07/29/2023 Refill Cardiology, [facility] [address] [place] [address] Yasmine Guzman, [address] [place] [address] Essential hypertension Allergies Active Allergy Reactions Criticality Noted Date Comments Bee Venom Medium 10/09/2013 Swelling documented as of this encounter (statuses as of 07/30/2023) Medications Medication Sig Dispensed Refills Start Date End Date Status ONE-A-DAY MENS PO TABSIndications:Ris k and functional assessment 1 TABLET DAILY 0 4 Active OMEGA-3 FISH OIL 1000 MG PO CAPS Take by mouth . 30 Cap 5 4 Active ICAPS LUTEIN-ZEAXANTHIN PO TBCR 1 daily 0 4 Active aspirin 81 MG chewable tablet Take 1 Tablet by mouth in the morning. with food.. 100 Tab 5 5 Active Acetaminophen ER 650 MG Oral Tablet Extended Release Take 2 Tablets by mouth 2 times a day as needed. 0 Active metoprolol tartrate (LOPRESSOR) 50 MG TabletIndications:C oronary artery disease involving false pass heart without angina pectoris, unspecified vessel or lesion type Take 1 Tab by mouth 2 times a day. 14 Tab 0 6 Active Diclofenac Sodium (VOLTAREN) 1 % gelIndications:Prim dea osteoarthritis involving multiple joints Place 2 g topically on the skin 4 times a day as needed for Pain, Moderate. To affected area as directed. 100 g 5 7 Active Additional Information Patient not taking.Reported on 04/17/2023 atorvaSTATin (LIPITOR) 20 MG TabletIndications:H yperlipidemia with target LDL less than 70 Take 1 Tab by mouth daily. 90 Tab 3 9 Active HYDROcodone-Acetami nophen 7.5-325 MG Oral TabletIndications:C hest pain on breathing Take 1 Tab by mouth every 8 hours as needed for Pain, Severe. 30 Tab 0 1 Active Additional Information Patient not taking.Reported on 04/17/2023 Nitroglycerin 0.4 MG Sublingual Tablet Sublingual (Nitrostat)Indicati ons:Atherosclerosis of false pass coronary artery of false pass heart without angina pectoris Place 1 Tab under the tongue every 5 minutes as needed for Pain, Chest. 75 Tab 1 1 Active Additional Information Patient not taking.Reported on 04/17/2023 traMADol HCl 50 MG Oral Tablet (Ultram)Indications :Post-op pain Take 1 Tab by mouth every 4 hours as needed for Pain, Moderate. 30 Tab 0 1 Active Additional Information Patient not taking.Reported on 04/17/2023 Dutasteride 0.5 MG Oral Capsule (Avodart) Take 0.5 mg by mouth daily. 30 Cap 5 1 Active BiPAP every night at bedtime . 0 Active Amoxicillin 500 MG Oral Capsule (Amoxil)Indications :Status post total bilateral knee replacement take 4 capsules by mouth for 1 dose 1 HOUR prior to dental appointment 12 Capsule 1 2 Active Ranolazine ER 500 MG Oral Tablet Extended Release 12 Hour (Ranexa) Take 1 Tablet by mouth in the morning and 1 Tablet before bedtime. 60 Tablet 11 3 Active Amoxicillin-Pot Clavulanate 500-125 MG Oral Tablet Take 1 Tablet by mouth in the morning and 1 Tablet in the evening. 0 Active Probiotic (Lactobacillus) Oral CapsuleIndications: Antibiotic causing adverse effect Take 1 Capsule by mouth in the morning and 1 Capsule before bedtime. 60 Capsule 1 3 Active Isosorbide Dinitrate 20 MG Oral Tablet (Isordil)Indication s:Primary hypertension,Yuen ry artery disease of false pass artery of false pass heart with stable angina pectoris (HCC),S/P coronary artery stent placement Take 2 Tablets by mouth in the morning and 2 Tablets at noon and 2 Tablets in the evening. 540 Tablet 3 3 Active Albuterol Sulfate 108 (90 Base) MCG/ACT Inhalation Aerosol Powder Breath Activated Inhale by mouth. 0 Active Furosemide 20 MG Oral Tablet (Lasix)Indications: Essential hypertension TAKE 1 TABLET BY MOUTH ONCE DAILY on saturday, saturday and saturday or as needed 50 Tablet 3 4 Active Furosemide 20 MG Oral Tablet (Lasix)Indications: Essential hypertension TAKE 1 TABLET BY MOUTH ONCE DAILY on Saturday, Saturday and Saturday or as needed 30 Tablet 3 3 07/30/19 24 Discontinued Hospital, Clinic, or Other Facility Administered Medication Ordered Dose Route Frequency Start Date End Date Status Albuterol Sulfate (Proventil) (2.5 MG/3ML) 0.083% inhalation solution 2.5 mgIndications:Dyspnea on exertion 2.5 mg NEBULIZER ONCE PRN 06/05/2023 06/04/2024 Active documented as of this encounter (statuses as of 07/30/2023) Active Problems Problem Noted Date Diagnosed Date Generalized osteoarthritis of multiple sites Chronic kidney disease, stage 3a 01/03/2021 Overview: Per CKD protocol History of right nephrectomy 11/14/2020 Chronic diastolic heart failure 02/10/2020 Obstructive lung disease 02/10/2020 HTN (hypertension) 08/05/2019 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 08/05/2019 Primary osteoarthritis of right ankle 07/03/2018 Personal history of malignant neoplasm of prosta te 01/01/2018 PHYLLIS (obstructive sleep apnea) 06/10/2017 S/P coronary artery stent placement 10/30/2016 Thoracic aortic aneurysm 03/08/2015 Atherosclerosis of false pass co ronary artery without angina pectoris Hyperlipidemia with target LDL less than 70 Overview: ICD-10 update of inactive term documented as of this encounter (statuses as of 07/30/2023) Resolved Problems Problem Noted Date Diagnosed Date Resolved Date Acute conjunctivitis, bilateral 01/13/2015 02/01/2017 Chronic cough 01/13/2015 02/01/2017 Chronic rhinitis 01/13/2015 02/01/2017 Osteoarthritis 07/03/2018 Prostate cancer 01/01/2018 documented as of this encounter (statuses as of 07/30/2023) Immunizations Name Administration Dates Next Due COVID-19 mRNA, LNP-s, No Pre serve, 2-Dose Series (Moderna) 08/22/2020,07/25/2020 Hepatitis B, 20+ yrs 01/31/2012,08/30/2011,08/02 Pneumococcal Conjugate Vacc, 13 Valent (Prevnar) 01/28/2017,12/07/2015 Pneumococcal Polysaccharide PPV23 (Pneumovax) 11/13/2013 Season Influenza, Quad, PF, Adjuvanted, 65+ Yrs, IM (FLUAD) 04/23/2020 Seasonal Influenza Intranasal 05/31/2014, 013 Seasonal Influenza, PF, 6 M & above, IM , (FluLaval or Fluzone) 06/07/2022,05/22/2022,04/23/2020,05/22,05/05/2018,05/02/2017 Seasonal Influenza, Quadriva lent Hd (Fluzone Hd) 04/29/2021 Seasonal Influenza, Quadriva lent Hd, 65+ Yrs 05/27/2023 Seasonal Influenza, Quadriva lent, No Preserve, IM 06/25/2016 Seasonal Influenza, Split, I IV3, With Preserve, Inj 07/08/2015 TD - Tetanus/Diptheria (ADULT) 08/02/2011 TD, Preservative Free 08/02/2011 TDAP (age 10 and older)(Boostrix) 05/27/2023, Varicella Zoster Vaccine (Adult) 10/08/2012 Zoster Vaccine Recombinant (Shingrix) 12/17/2019 ,07/18/2019 documented as of this encounter Social History Tobacco Use Types Packs/Day Years Used Date Smoking Tobacco: Never Smokeless Tobacco: Never Alcohol Use Standard Drinks/Week Comments No 0 (1 standard drink = 0.6 oz pur e alcohol) PHQ-2 Answer Date Recorded PHQ Adult Total Score 0 01/04/2021 Hunger Vital Sign Answer Date Recorded Worried About Running Out of Food in the Last Ye ar Never true 08/05/2019 Ran Out of Food in the Last Year Never true 08/05/2019 Sex and Gender Information Value Date Recorded Sex Assigned at Male 12/17/2018 3:52 PM EDT Gender Identity Male 12/17/2018 3:52 PM EDT Sexual Orientation Straight 12/17/2018 3: 52 PM EDT Job Start Date Occupation Industry Not on file Not on file Not on file documented as of this encounter Miscellaneous Notes * Telephone Encounter - Yasmine Guzman DO - 07/30/2023 9:46 AM ESTSigned Prescriptions: Disp Refills Furosemide 20 MG Oral Tablet (Lasix) 50 Tab*3 Sig: TAKE 1 TABLET BY MOUTH ONCE DAILY on saturday, saturday and saturday or as needed Authorizing Provider: YASMINE GUZMAN * Telephone Encounter - Rebekah Emanuel COT - 07/30/2023 9:18 AM ESTPending Prescriptions: Disp Refills Furosemide 20 MG Oral Tablet (Lasix) 50 Tab*3 Sig: TAKE 1 TABLET BY MOUTH ONCE DAILY on saturday, saturday and saturday or as needed * Telephone Encounter - Rebekah Emanuel COT - 07/30/2023 9:17 AM EST Did you pend patient's preferred pharmacy and medication before forwarding?yes Pharmacy: [id number] Pending Prescriptions: Disp Refills Furosemide 20 MG Oral Tablet (Lasix) [Pha*50 Tab*3 Sig: TAKE 1 TABLET BY MOUTH ONCE DAILY on saturday, saturday and saturday or as needed Last Visit: 07/09/2023 (in office), 12/04/2019 (telemedicine) Next Visit: 10/08/2023 If no future appointments scheduled, and last appointment is greater than a year ago, please schedule patient for a follow-up appointment Last date the medication was ordered: 01-16-2023 Is this request for a controlled substance?No Urine Drug Screen:No results found for this or any previous visit. Patient Phone Numbers Labs: Lab Results Component Value Date/Time CREAT 1.3 (H) 06/06/2023 02:37 PM CREAT 1.2 05/20/2023 12:00 AM CREAT 1.2 09/25/2019 08:52 AM POTASSIUM 4.5 06/06/2023 02:37 PM POTASSIUM 4.1 05/20/2023 12:00 AM POTASSIUM 4.7 09/25/2019 08:52 AM TSH 1.80 05/20/2023 12:00 AM TSH 2.13 08/26/2014 07:53 AM LDLCALC 62 05/20/2023 12:00 AM LDLCALC 44 10/23/2016 08:50 AM LDLDIRECT NOT APPLICABLE 10/23/2016 08:50 AM ALT 18 04/17/2023 11:12 AM ALT 16 09/26/2016 10:33 AM HGBA1C 5.8 05/20/2023 12:00 AM HGBA1C 5.3 10/23/2016 08:50 AM documented in this encounter Plan of Treatment Upcoming Encounters Date Type Department Care Team (Late st Contact Info) Description 08/14/2023 1:40 PM EST Office Visit Pulmonary Medicine, [address] [place] [address] Ruben Meehan MD [address] [place] [address] 10/08/2023 9:00 AM EDT Office Visit Cardiology, [facility] [address] [facility] [place] [address] Candis Poole PA-C [address] [place] [address] [place] [phone] 12/04/2023 8:20 AM EDT Office Visit Family [facility] [address] [place] [address] Kamari Betancourt MD [address] [place] [address] 01/07/2024 9:00 AM EDT Office Visit Sleep Disorders Ctr [facility] [address] [facility] [place] [phone] Tiffany Jefferson CRNP [address] [facility] [place] [address] Health Maintenance Due Date Last Done Comments CKD PHOS USE SMARTSET 01861 08/13/2021 08/13/2020 Depression Screening 01/04/2022 01/04/2021 COVID-19 Vaccine ( season) 2023 08/22/2020, 07/25/2020 GFR 12/05/2023 06/06/2023, 04/23, 04/17/2023, Additional history exists Albumin/Creatinine Ratio 05/20/2024 023, 11/27/2022, 06/05/2022, Additional history exists CKD HGB USE SMARTSET 05250 05/20/202405/20, 04/17/2023, 04/17/2023, Additional history exists O2 ASSESSMENT COMPLETED IN PAST YEAR FOR COPD 07/17/2024 07/17/2023 DTaP,Tdap,and Td Vaccines (3 - Td or Tdap) 05/27/2033 05/27/2023, 11/13/2013, 08/02/2011, Additional history exists Hepatitis B Completed 01/31/2012, 01/19, 08/30/2011, Additional history exists Pneumococcal Vaccine: 65+ Years Completed 01/28/2017, 12/07/2015, 11/13/2013 Zoster Vaccines Completed 12/17/2019, 08/22, 07/18/2019, Additional history exists Influenza Vaccine (FLU shot) Completed 12/2022, 06/07/2022, 05/22/2022, Additional history exists GARDASIL-HPV IMMUNIZATION SERIES Aged Out No longer eligible based on patient's age to complete this topic MENINGOCOCCAL (MENACTRA/MENVEO) Aged Out No longer eligible based on patient's age to complete this topic documented as of this encounter Medical Devices Not on filedocumented as of this encounter Visit Diagnoses Diagnosis Essential hypertension Unspecified essential hypertension documented in this encounter Advance Directives Latest Code Status on File Code Status Date Activated Date Inactivated Comments Full Code 10/23/2016 9:57 AM 10/24/2016 12:37 AM This o rder reflects the patients wishes and were consensually agreed upon. Question Answer Comments Discussion of Advance Directives occurred with: Not Discussed Does the patient have a Living Will? No Does the patient have Health Care Power of Pin Sticker? No Care Teams Heading Matcher And Assembler Relationship Specialty Start Date End Date Kamari Betancourt MD [address] [place] [address] PCP - General Family Medicine 10/09/13 documented as of this encounter
--- OUTSIDE RECORDS SUMMARY | 2023-08-02 07:29 | External Medical Summary | Summary of Care ---
Author Name Unknown Organization [facility] Address [address] [facility] [place] [address] Phone [phone] Care Team Providers Care Embossing Press Operator Name Role Phone Kamari Betancourt MD Primary Care Provider [phone] Reason for Visit * Reason Onset Date Comments Advice 07/16/2023 Encounter Details Date Type Department Care Team (Late st Contact Info) Description 07/16/2023 Telephone [facility] [address] [place] [address] Kamari Betancourt MD [address] [place] [address] Advice Allergies Active Allergy Reactions Criticality Noted Date Comments Bee Venom Medium 10/09/2013 Swelling documented as of this encounter (statuses as of 07/31/2023) Medications Medication Sig Dispensed Refills Start Date End Date Status ONE-A-DAY MENS PO TABSIndications:Risk and functional assessment 1 TABLET DAILY 0 10/09/2013 Active OMEGA-3 FISH OIL 1000 MG PO CAPS Take by mouth . 30 Cap 5 10/09/2013 Active ICAPS LUTEIN-ZEAXANTHIN PO TBCR 1 daily 0 02/12/2014 Active aspirin 81 MG chewable tablet Take 1 Tablet by mouth in the morning. with food.. 100 Tab 5 03/08/2015 Active Acetaminophen ER 650 MG Oral Tablet Extended Release Take 2 Tablets by mouth 2 times a day as needed. 0 Active metoprolol tartrate (LOPRESSOR) 50 MG TabletIndications:Co ronary artery disease involving [place] heart without angina pectoris, unspecified vessel or lesion type Take 1 Tab by mouth 2 times a day. 14 Tab 0 06/05/2016 Active Diclofenac Sodium (VOLTAREN) 1 % gelIndications:Prima ry osteoarthritis involving multiple joints Place 2 g topically on the skin 4 times a day as needed for Pain, Moderate. To affected area as directed. 100 g 5 07/02/2017 Active Additional Information Patient not taking.Reported on 04/17/2023 atorvaSTATin (LIPITOR) 20 MG TabletIndications:Hy perlipidemia with target LDL less than 70 Take 1 Tab by mouth daily. 90 Tab 3 12/17/2018 Active HYDROcodone-Acetamin ophen 7.5-325 MG Oral TabletIndications:Ch est pain on breathing Take 1 Tab by mouth every 8 hours as needed for Pain, Severe. 30 Tab 0 08/19/2020 Active Additional Information Patient not taking.Reported on 04/17/2023 Nitroglycerin 0.4 MG Sublingual Tablet Sublingual (Nitrostat)Indicatio ns:Atherosclerosis of [place] coronary artery of sp[place]ane heart without angina pectoris Place 1 Tab under the tongue every 5 minutes as needed for Pain, Chest. 75 Tab 1 09/29/2020 Active Additional Information Patient not taking.Reported on 04/17/2023 traMADol HCl 50 MG Oral Tablet (Ultram)Indications: Post-op pain Take 1 Tab by mouth every 4 hours as needed for Pain, Moderate. 30 Tab 0 11/07/2020 Active Additional Information Patient not taking.Reported on 04/17/2023 Dutasteride 0.5 MG Oral Capsule (Avodart) Take 0.5 mg by mouth daily. 30 Cap 5 05/24/2021 Active BiPAP every night at bedtime . 0 Active Amoxicillin 500 MG Oral Capsule (Amoxil)Indications: Status post total bilateral knee replacement take 4 capsules by mouth for 1 dose 1 HOUR prior to dental appointment 12 Capsule 1 02/09/2022 Active Ranolazine ER 500 MG Oral Tablet Extended Release 12 Hour (Ranexa) Take 1 Tablet by mouth in the morning and 1 Tablet before bedtime. 60 Tablet 11 09/06/2022 Active Amoxicillin-Pot Clavulanate 500-125 MG Oral Tablet Take 1 Tablet by mouth in the morning and 1 Tablet in the evening. 0 Active Probiotic (Lactobacillus) Oral CapsuleIndications:A ntibiotic causing adverse effect Take 1 Capsule by mouth in the morning and 1 Capsule before bedtime. 60 Capsule 1 09/05/2022 Active Isosorbide Dinitrate 20 MG Oral Tablet (Isordil)Indications :Primary hypertension,Coronar y artery disease of [place] artery of sp[place]ane heart with stable angina pectoris (HCC),S/P coronary artery stent placement Take 2 Tablets by mouth in the morning and 2 Tablets at noon and 2 Tablets in the evening. 540 Tablet 3 06/06/2023 Active Albuterol Sulfate 108 (90 Base) MCG/ACT Inhalation Aerosol Powder Breath Activated Inhale by mouth. 0 [facility], [facility], or Other Facility Administered Medication Ordered Dose Route Frequency Start Date End Date Status Albuterol Sulfate (Proventil) (2.5 MG/3ML) 0.083% inhalation solution 2.5 mgIndications:Dyspnea on exertion 2.5 mg NEBULIZER ONCE PRN 06/05/2023 06/04/2024 Active documented as of this encounter (statuses as of 07/31/2023) Active Problems Problem Noted Date Diagnosed Date Generalized osteoarthritis of multiple sites Chronic kidney disease, stage 3a 01/03/2021 Overview: Per CKD protocol History of right nephrectomy 11/14/2020 Chronic diastolic heart failure 02/10/2020 Obstructive lung disease 02/10/2020 HTN (hypertension) 08/05/2019 Coronary artery disease of n ative artery of [place] heart with stable angina pectoris 08/05/2019 Primary osteoarthritis of right ankle 07/03/2018 Personal history of malignant neoplasm of prosta te 01/01/2018 PHYLLIS (obstructive sleep apnea) 06/10/2017 S/P coronary artery stent placement 10/30/2016 Thoracic aortic aneurysm 03/08/2015 Atherosclerosis of [place] co ronary artery without angina pectoris Hyperlipidemia with target LDL less than 70 Overview: ICD-10 update of inactive term documented as of this encounter (statuses as of 07/31/2023) Resolved Problems Problem Noted Date Diagnosed Date Resolved Date Acute conjunctivitis, bilateral 01/13/2015 02/01/2017 Chronic cough 01/13/2015 02/01/2017 Chronic rhinitis 01/13/2015 02/01/2017 Osteoarthritis 07/03/2018 Prostate cancer 01/01/2018 documented as of this encounter (statuses as of 07/31/2023) Immunizations Name Administration Dates Next Due COVID-19 [...] encounter Miscellaneous Notes * Telephone Encounter - Zabrina Mcclain LPN - 07/17/2023 1:41 PM EST Patient daughter was contacted and given below message and daughter states he just had his pulmonary function test today. No concerns or issues at this time. * Telephone Encounter - Michael Gutierrez LPN - 07/16/2023 9:56 AM EST ----- Message from Kamari Betancourt MD sent at 07/09/2023 7:40 AM EST ----- Just wanted to make sure you knew chest xray done in Nov was normal. documented in this encounter Plan of Treatment Upcoming Encounters Date Type Department Care Team (Late st Contact Info) Description 08/14/2023 1:40 PM EST Office Visit Pulmonary Medicine, [facility] [address] [facility] [place] [address] Ruben Meehan MD [address] [facility] [place] [address] 10/08/2023 9:00 AM EDT Office Visit Cardiology, [facility] [address] [facility] [place] [address] Candis Poole PA-C [address] [place] [address] [place] [phone] 12/04/2023 8:20 AM EDT [address] [phone] [facility] [address] [facility] [address] 01/07/2024 9:00 AM EDT [facility] [address] [place] [phone] Tiffany Jefferson CRNP [address] [place] [address] Health Maintenance Due Date Last Done Comments CKD PHOS USE SMARTSET 86671 08/13/2021 08/13/2020 Depression Screening 01/04/2022 01/04/2021 COVID-19 Vaccine ( season) 2023 08/22/2020, 07/25/2020 GFR 12/05/2023 06/06/2023, 04/23, 04/17/2023, Additional history exists Albumin/Creatinine Ratio 05/20/2024 023, 11/27/2022, 06/05/2022, Additional history exists CKD HGB USE SMARTSET 73901 05/20/202405/20, 04/17/2023, 04/17/2023, Additional history exists O2 [...] Not on filedocumented as of this encounter Advance Directives Latest Code Status on File Code Status Date Activated Date Inactivated Comments Full Code 10/23/2016 9:57 AM 10/24/2016 12:37 AM This o rder reflects the patients wishes and were consensually agreed upon. Question Answer Comments Discussion of Advance Directives occurred with: Not Discussed Does the patient have a Living Will? No Does the patient have Health Care Power of Child Welfare Caseworker? No Care Teams Embossing Press Operator Relationship Specialty Start Date End Date Kamari Betancourt MD [address] [place] [address] PCP - General Family Medicine 10/09/13 documented as of this encounter
--- OUTSIDE RECORDS SUMMARY | 2023-08-02 07:30 | External Medical Summary | Summary of Care ---
Author Name Unknown Organization [facility] Address [address] [facility] [place] [address] Phone [phone] Care Team Providers Care Television Reporter Name Role Phone Kamari Betancourt MD Primary Care Provider [phone] Reason for Referral * Evaluate & Treat - Unlimited Visits (Within 30 days (routine)) - Authorized Specialty Diagnoses / Procedures Referred By Ruthie t Referred To Contact Pulmonary Diseases / Pulmonary Diagnoses Chronic diastolic heart failure (HCC) Taylor Lauren PA-C [address] [place] [address] Ruben Meehan MD [address] [place] [address] Referral ID Status Reason Start Date Expiration Date Visits Requested Visits Authorized [id number] Authorized Specialty Services Required 3 [phone] Question Answer Referral Priority Within 30 days (routine) Where should this appointment be scheduled? [facility] Reason for Referral? Other Reason for Visit * Reason Onset Date Comments Test Results 06/07/2023 Encounter Details Date Type Department Care Team (Late st Contact Info) Description 06/07/2023 Telephone [facility] [address] [place] [address] Taylor Lauren PA-C [address] [place] [address] Test Results Allergies Active Allergy Reactions Criticality Noted Date Comments Bee Venom Medium 10/09/2013 Swelling documented as of this encounter (statuses as of 07/04/2023) Medications Medication Sig Dispensed Refills Start Date [...] 50 MG TabletIndications:Co ronary artery disease involving [place] heart without angina pectoris, unspecified vessel or [...] MG Sublingual Tablet Sublingual (Nitrostat)Indicatio ns:Atherosclerosis of [place] coronary artery of [place] heart without angina pectoris Place 1 Tab [...] before bedtime. 60 Capsule 1 09/05/2022 Active Furosemide 20 MG Oral Tablet (Lasix)Indications:E ssential hypertension TAKE 1 TABLET BY MOUTH ONCE DAILY on Saturday, Saturday and Saturday or as needed 30 Tablet 3 01/16/2023 Active Isosorbide Dinitrate 20 MG Oral Tablet (Isordil)Indications :Primary hypertension,Coronar y artery disease of [place] artery of [place] heart with stable angina pectoris (HCC),S/P coronary artery stent placement Take 2 Tablets by mouth in the morning and 2 Tablets at noon and 2 Tablets in the evening. 540 Tablet 3 06/06/2023 Active Hospital, Clinic, or Other Facility Administered Medication Ordered Dose Route Frequency Start Date End Date Status Albuterol Sulfate (Proventil) (2.5 MG/3ML) 0.083% inhalation solution 2.5 mgIndications:Dyspnea on exertion 2.5 mg NEBULIZER ONCE PRN 06/05/2023 06/04/2024 Active documented as of this encounter (statuses as of 07/04/2023) Active Problems Problem Noted Date Diagnosed Date Generalized osteoarthritis of multiple sites Chronic kidney disease, stage 3a 01/03/2021 Overview: Per CKD protocol History of right nephrectomy 11/14/2020 Chronic diastolic heart failure 02/10/2020 Obstructive lung disease 02/10/2020 HTN (hypertension) 08/05/2019 Coronary artery disease of n ative artery of [place] heart with stable angina pectoris 08/05/2019 Primary osteoarthritis of right ankle 07/03/2018 Personal history of malignant neoplasm of prosta te 01/01/2018 PHYLLIS (obstructive sleep apnea) 06/10/2017 S/P coronary artery stent placement 10/30/2016 Thoracic aortic aneurysm 03/08/2015 Atherosclerosis of [place] co ronary artery without angina pectoris Hyperlipidemia with target LDL less than 70 Overview: ICD-10 update of inactive term documented as of this encounter (statuses as of 07/04/2023) Resolved Problems Problem Noted Date Diagnosed Date Resolved Date Acute conjunctivitis, bilateral 01/13/2015 02/01/2017 Chronic cough 01/13/2015 02/01/2017 Chronic rhinitis 01/13/2015 02/01/2017 Osteoarthritis 07/03/2018 Prostate cancer 01/01/2018 documented as of this encounter (statuses as of 07/04/2023) Immunizations Name Administration Dates Next Due COVID-19 [...] as of this encounter Miscellaneous Notes * Addendum Note - Fantasma Langley RN - 07/04/2023 1:43 PM ESTAddended by: FANTASMA LANGLEY on: 07/04/2023 01:43 PM Modules accepted: Orders * Telephone Encounter - Fantasma Langley RN - 07/04/2023 1:08 PM EST Called and spoke to the patient's daughter and reviewed the message with her from Taylor White regards to his testing. She agreed for him to have the pulmonary referral. Referral placed. * Telephone Encounter - Taylor aLuren PA-C - 06/26/2023 4:37 PM EST Noted. PFT report reviewed. It appears PFT's were abnormal/inconclusive Full/Complete PFT's were recommended. Given his ongoing dyspnea, would recommend formal pulm evaluation. Consider imaging and repeat PFT's with complete study. If agreeable please arrange pulm referral and they can arrange necessary testing/imaging as deemed necessary * Telephone Encounter - Beatris Pritchett OSA - 06/24/2023 9:26 AM EST Pt on recall list for an appointment with Dr. Guzman, so we do not have a Elle schedule for him yet. * Telephone Encounter - Macie Zafar CRNP - 06/22/2023 11:51 AM EST Chart reviewed in coverage of Taylor Lauren PA-C. Per Taylor's last note-- needs 6-8 week f/u with Megan. * Telephone Encounter - Taylor Lauren PA-C - 06/10/2023 4:06 PM EST Noted. Await response * Telephone Encounter - Jordan Quezada LPN - 06/07/2023 2:32 PM EST Sent patient a [employer] message to make aware. ----- Message from DENICE Abraham sent at 06/07/2023 8:14 AM EST ----- Results reviewed in coverage of Taylor Lauren PA-C Renal function stable. Electrolytes within normal limits. BNP elevated. Patient was seen yesterday in the clinic. Noted concerns with dyspnea and orthopnea. Patient did not examined very hypervolemic but did have mild lower extremity edema. Recommend increasing furosemide to 40 mg daily x3 days then reduce back down to 20 mg Saturday as previously ordered. Please have him follow-up on Saturday in our office with how he is feeling with the change. documented in this encounter Plan of Treatment Upcoming Encounters Date Type Department Care Team (Late st Contact Info) Description 07/09/2023 9:30 AM EST [facility] [address] [facility] [place] [address] Robert Guzman, [address] [facility] [place] [address] 12/04/2023 8:20 AM EDT Office Visit [facility] [address] [place] [address] Kamari Betancourt MD [address] [place] [address] 01/07/2024 9:00 AM EDT Office Visit Sleep Disorders [facility] [address] [facility] [place] [phone] Tiffany Jefferson CRNP [address] [facility] [place] [address] Scheduled Referrals Name Type Priority Associated Diagnoses Orde r Schedule PULMONARY REFERRAL OP Referral Within 30 days (routine) Chronic diastolic heart failure (HCC) Ordered: 07/04/2023 Health Maintenance Due Date Last Done Comments CKD PHOS USE SMARTSET 12010 08/13/2021 08/13/2020 Depression Screening 01/04/2022 01/04/2021 COVID-19 Vaccine ( season) 2023 08/22/2020, 07/25/2020 GFR 12/05/2023 06/06/2023, 04/23, 04/17/2023, Additional history exists Albumin/Creatinine Ratio 05/20/2024 023, 11/27/2022, 06/05/2022, Additional history exists CKD HGB USE SMARTSET 78563 05/20/202405/20, 04/17/2023, 04/17/2023, Additional history exists O2 ASSESSMENT COMPLETED IN PAST YEAR FOR COPD 06/06/2024 06/06/2023 DTaP,Tdap,and Td Vaccines (3 - Td or [...] as of this encounter Visit Diagnoses Diagnosis Chronic diastolic heart failure (HCC)- Primary Chronic diastolic heart failure documented in this encounter Advance Directives Latest [...] the patient have Health Care Power of Demonstrator Sewing Techniques? No Care Teams Television Reporter Relationship Specialty Start Date End Date Kamari Betancourt MD [address] [place] [address] PCP - General Family Medicine 10/09/13 documented as of this encounter
--- OUTSIDE RECORDS SUMMARY | 2023-08-02 07:30 | External Medical Summary | Summary of Care ---
Author Name Unknown Organization [facility] Address [address] [facility] [place] [address] Phone [phone] Care Team Providers Care Business Analyst Manager Name Role Phone Kamari Betancourt MD Primary Care Provider [phone] Reason for Visit * Reason Onset Date Comments Test Results 06/07/2023 Encounter Details Date Type Department Care Team (Late st Contact Info) Description 06/07/2023 Telephone Cardiology, [facility] [address] [place] [address] Taylor Lauren PA-C [address] [place] [address] Test Results Allergies Active Allergy Reactions Criticality Noted Date Comments Bee Venom Medium 10/09/2013 Swelling documented as of this encounter (statuses as of 06/21/2023) Medications Medication Sig Dispensed Refills Start Date [...] 50 MG TabletIndications:Co ronary artery disease involving [place] heart without angina pectoris, unspecified vessel or [...] MG Sublingual Tablet Sublingual (Nitrostat)Indicatio ns:Atherosclerosis of [place] coronary artery of [place] heart without angina pectoris Place 1 Tab [...] (Isordil)Indications :Primary hypertension,Coronar y artery disease of [place] artery of [place] heart with stable angina pectoris (HCC),S/P coronary [...] as of this encounter (statuses as of 06/21/2023) Active Problems Problem Noted Date Diagnosed Date Generalized osteoarthritis of multiple sites Chronic kidney disease, stage 3a 01/03/2021 Overview: Per CKD protocol History of right nephrectomy 11/14/2020 Chronic diastolic heart failure 02/10/2020 Obstructive lung disease 02/10/2020 HTN (hypertension) 08/05/2019 Coronary artery disease of n ative artery of [place] heart with stable angina pectoris 08/05/2019 Primary osteoarthritis of right ankle 07/03/2018 Personal history of malignant neoplasm of prosta te 01/01/2018 PHYLLIS (obstructive sleep apnea) 06/10/2017 S/P coronary artery stent placement 10/30/2016 Thoracic aortic aneurysm 03/08/2015 Atherosclerosis of [place] co ronary artery without angina pectoris Hyperlipidemia with target LDL less than 70 Overview: ICD-10 update of inactive term documented as of this encounter (statuses as of 06/21/2023) Resolved Problems Problem Noted Date Diagnosed Date Resolved Date Acute conjunctivitis, bilateral 01/13/2015 02/01/2017 Chronic cough 01/13/2015 02/01/2017 Chronic rhinitis 01/13/2015 02/01/2017 Osteoarthritis 07/03/2018 Prostate cancer 01/01/2018 documented as of this encounter (statuses as of 06/21/2023) Immunizations Name Administration Dates Next Due COVID-19 mRNA, LNP-s, No Pre serve, 2-Dose Series (Moderna) 08/22/2020,07/25/2020 Hepatitis B, 20+ yrs 01/31/2012,08/30/2011,08/02 Pneumococcal Conjugate Vacc, 13 Valent (Prevnar) 01/28/2017,12/07/2015 Pneumococcal Polysaccharide PPV23 (Pneumovax) 11/13/2013 SEASONAL INFLUENZA, PF, 6 M & Above, IM , (FLULAVAL or FLUZONE) 06/07/2022,05/22/2022,04/23/2020,05/22,05/05/2018,05/02/2017 Season Influenza, Quad, PF, Adjuvanted, 65+ Yrs, IM (FLUAD) 04/23/2020 Seasonal Influenza Intranasal 05/31/2014, 013 Seasonal Influenza, Quadriva lent Hd (Fluzone Hd) [...] encounter Miscellaneous Notes * Telephone Encounter - Taylor Lauren PA-C - 06/10/2023 4:06 PM EST Noted. Await response * Telephone Encounter - Jordan Quezada LPN - 06/07/2023 2:32 PM EST Sent patient a [employer] message to make aware. ----- Message from [...] Care Team (Late st Contact Info) Description 12/04/2023 8:20 AM EDT Office Visit [facility] [address] [place] [phone] Kamari Betancourt MD [address], [place] [phone] 01/07/2024 9:00 AM EDT Office Visit [facility] [address] [place] [phone] Tiffany Jefferson CRNP [address] [place] [address] Health Maintenance Due Date Last Done Comments CKD PHOS USE SMARTSET 91011 08/13/2021 08/13/2020 Depression Screening 01/04/2022 01/04/2021 COVID-19 Vaccine ( season) 2023 08/22/2020, 07/25/2020 GFR 12/05/2023 06/06/2023, 04/23, 04/17/2023, Additional history exists Albumin/Creatinine Ratio 05/20/2024 023, 11/27/2022, 06/05/2022, Additional history exists CKD HGB USE SMARTSET 14656 05/20/202405/20, 04/17/2023, 04/17/2023, Additional history exists O2 [...] the patient have Health Care Power of Business Intelligence Director? No Care Teams Business Analyst Manager Relationship Specialty Start Date End Date Kamari Betancourt MD [address] [place] [address] PCP - General Family Medicine 10/09/13 documented as of this encounter
--- OUTSIDE RECORDS SUMMARY | 2023-08-02 07:30 | External Medical Summary | Summary of Care ---
Author Name Unknown Organization [facility] Address [address] [facility] [place] [address] Phone [phone] Care Team Providers Care General Expeditor Name Role Phone Kamari Betancourt MD Primary Care Provider [phone] Reason for Visit * Reason Onset Date Comments Test Results 06/07/2023 Encounter Details Date Type Department Care Team (Late st Contact Info) Description 06/07/2023 Telephone Cardiology, [facility] [address] [place] [address] Taylor Lauren PA-C [address] [place] [address] Test Results Allergies Active Allergy Reactions Criticality Noted Date Comments Bee Venom Medium 10/09/2013 Swelling documented as of this encounter (statuses as of 06/22/2023) Medications Medication Sig Dispensed Refills Start Date [...] 50 MG TabletIndications:Co ronary artery disease involving [place] heart without angina pectoris, unspecified vessel or [...] MG Sublingual Tablet Sublingual (Nitrostat)Indicatio ns:Atherosclerosis of [place] coronary artery of [place] heart without angina pectoris Place 1 Tab [...] (Isordil)Indications :Primary hypertension,Coronar y artery disease of [place] artery of [place] heart with stable angina pectoris (HCC),S/P coronary [...] as of this encounter (statuses as of 06/22/2023) Active Problems Problem Noted Date Diagnosed Date Generalized osteoarthritis of multiple sites Chronic kidney disease, stage 3a 01/03/2021 Overview: Per CKD protocol History of right nephrectomy 11/14/2020 Chronic diastolic heart failure 02/10/2020 Obstructive lung disease 02/10/2020 HTN (hypertension) 08/05/2019 Coronary artery disease of n ative artery of [place] heart with stable angina pectoris 08/05/2019 Primary osteoarthritis of right ankle 07/03/2018 Personal history of malignant neoplasm of prosta te 01/01/2018 PHYLLIS (obstructive sleep apnea) 06/10/2017 S/P coronary artery stent placement 10/30/2016 Thoracic aortic aneurysm 03/08/2015 Atherosclerosis of [place] co ronary artery without angina pectoris Hyperlipidemia with target LDL less than 70 Overview: ICD-10 update of inactive term documented as of this encounter (statuses as of 06/22/2023) Resolved Problems Problem Noted Date Diagnosed Date Resolved Date Acute conjunctivitis, bilateral 01/13/2015 02/01/2017 Chronic cough 01/13/2015 02/01/2017 Chronic rhinitis 01/13/2015 02/01/2017 Osteoarthritis 07/03/2018 Prostate cancer 01/01/2018 documented as of this encounter (statuses as of 06/22/2023) Immunizations Name Administration Dates Next Due COVID-19 [...] encounter Miscellaneous Notes * Telephone Encounter - Macie Zafar CRNP - 06/22/2023 11:51 AM EST Chart reviewed in coverage of Taylor Lauren PA-C. Per Taylor's last note-- needs 6-8 week f/u with Megan. * Telephone Encounter - Taylor Lauren PA-C - 06/10/2023 4:06 PM EST Noted. Await response * Telephone Encounter - Jordan Quezada LPN - 06/07/2023 2:32 PM EST Sent patient a [employer] message to make aware. ----- Message from [...] Description 12/04/2023 8:20 AM EDT Office Visit [facility] [place] [address] [place] [facility] [place] [address] Kamari Betancourt MD [address] [facility] [place] [address] 01/07/2024 9:00 AM EDT Office Visit [facility] Disorders [facility]tr [facility] [address] [place] [phone] Tiffany Jefferson CRNP [address] [place] [address] Health Maintenance Due Date Last Done Comments CKD PHOS USE SMARTSET 27309 08/13/2021 08/13/2020 Depression Screening 01/04/2022 01/04/2021 COVID-19 Vaccine ( season) 2023 08/22/2020, 07/25/2020 GFR 12/05/2023 06/06/2023, 04/23, 04/17/2023, Additional history exists Albumin/Creatinine Ratio 05/20/2024 023, 11/27/2022, 06/05/2022, Additional history exists CKD HGB USE SMARTSET 51912 05/20/202405/20, 04/17/2023, 04/17/2023, Additional history exists O2 [...] the patient have Health Care Power of Paper Cone Maker? No Care Teams General Expeditor Relationship Specialty Start Date End Date Kamari Betancourt MD [address] [place] [address] PCP - General Family Medicine 10/09/13 documented as of this encounter
--- OUTSIDE RECORDS SUMMARY | 2023-08-02 07:30 | External Medical Summary | Summary of Care ---
Author Name Unknown Organization [facility] Address [address] [facility] [place] [address] Phone [phone] Care Team Providers Care Ramp Manager Name Role Phone Kamari Betancourt MD Primary Care Provider [phone] Reason for Visit * Reason Comments Pulmonary Function Test Spirogram with angel sanders Encounter Details Date Type Department Care Team (Latest Contact Info) Description 06/20/2023 8:00 AM EST PulmDiagnostic Pulmonary Function Lab, [facility] [address] [facility] [place] [address] [place], [address] [facility] [place] [address] Dyspnea on exertion* Allergies Active Allergy Reactions Criticality Noted Date Comments Bee Venom Medium 10/09/2013 Swelling documented as of this encounter (statuses as of 06/20/2023) Medications Medication Sig Dispensed Refills Start Date [...] 50 MG TabletIndications:Co ronary artery disease involving [place] heart without angina pectoris, unspecified vessel or [...] MG Sublingual Tablet Sublingual (Nitrostat)Indicatio ns:Atherosclerosis of [place] coronary artery of [place] heart without angina pectoris Place 1 Tab [...] (Isordil)Indications :Primary hypertension,Coronar y artery disease of [place] artery of [place] heart with stable angina pectoris (HCC),S/P coronary artery stent placement Take 2 Tablets by mouth in the morning and 2 Tablets at noon and 2 Tablets in the evening. 540 Tablet 3 06/06/2023 Active Albuterol Sulfate 108 (90 Base) MCG/ACT Inhalation Aerosol Powder Breath Activated Inhale by mouth. 0 [facility], Clinic, or Other Facility Administered Medication Ordered Dose Route Frequency Start Date End Date Status Albuterol Sulfate (Proventil) (2.5 MG/3ML) 0.083% inhalation solution 2.5 mgIndications:Dyspnea on exertion 2.5 mg NEBULIZER ONCE PRN 06/05/2023 06/04/2024 Active documented as of this encounter (statuses as of 06/20/2023) Active Problems Problem Noted Date Diagnosed Date Generalized osteoarthritis of multiple sites Chronic kidney disease, stage 3a 01/03/2021 Overview: Per CKD protocol History of right nephrectomy 11/14/2020 Chronic diastolic heart failure 02/10/2020 Obstructive lung disease 02/10/2020 HTN (hypertension) 08/05/2019 Coronary artery disease of n ative artery of [place] heart with stable angina pectoris 08/05/2019 Primary osteoarthritis of right ankle 07/03/2018 Personal history of malignant neoplasm of prosta te 01/01/2018 PHYLLIS (obstructive sleep apnea) 06/10/2017 S/P coronary artery stent placement 10/30/2016 Thoracic aortic aneurysm 03/08/2015 Atherosclerosis of [place] co ronary artery without angina pectoris Hyperlipidemia with target LDL less than 70 Overview: ICD-10 update of inactive term documented as of this encounter (statuses as of 06/20/2023) Resolved Problems Problem Noted Date Diagnosed Date Resolved Date Acute conjunctivitis, bilateral 01/13/2015 02/01/2017 Chronic cough 01/13/2015 02/01/2017 Chronic rhinitis 01/13/2015 02/01/2017 Osteoarthritis 07/03/2018 Prostate cancer 01/01/2018 documented as of this encounter (statuses as of 06/20/2023) Immunizations Name Administration Dates Next Due COVID-19 [...] Date Smoking Tobacco: Never Smokeless Tobacco: Never Tobacco Cessation:Counseling Given: Not Answered Alcohol Use Standard Drinks/Week Comments No 0 [...] on file documented as of this encounter Last Filed Vital Signs Vital Sign Reading Time Taken Comments Blood Pressure - - Pulse - - Temperature - - Respiratory Rate - - Oxygen Saturation - - Inhaled Oxygen Concentration - - Weight 92.9 kg (204 lb 12.9 oz) 06/20/2023 8:00 AM EST Height 163.5 cm (5' 4.37") 06/20/2023 8:00 AM ES T Body Mass Index 34.75 06/20/2023 8:00 AM EST documented in this encounter Nursing Notes * Rosa Moore RRT - 06/20/2023 8:04 AM EST Roámn Fry was identified by name, Date of : (1940), and . Vitals were obtained for testing. Body mass index is 34.75 kg/m. Pt does not have a smoking history. 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 Pt wears BIPAP. Spirometry performed before and after a slow volume nebulizer treatment of 0.5ml of albuterol in 3 ml of NSS. Administrations This Visit Albuterol Sulfate (Proventil) (2.5 MG/3ML) 0.083% inhalation solution 2.5 mg Admin Date 06/20/2023 Action Given Dose 2.5 mg Route Nebulizer Documented By Rosa Moore RRT documented in this encounter Plan of Treatment Upcoming Encounters Date Type Department Care Team (Late st Contact Info) Description 12/04/2023 8:20 AM EDT Office Visit [address] [phone] [facility] [address] [facility] [address] 01/07/2024 9:00 AM EDT Office Visit Sleep Disorders Ctr [facility] [address] [place] [phone] Tiffany Jefferson CRNP [address] [place] [address] Pending Results Name Type Priority Associated Diagnoses Date /Time SPIROMETRY B/A BRONCHODILATOR Procedures Routine Dyspnea on exertion 06/20/2023 7:48 AM EST Health Maintenance Due Date Last Done Comments CKD PHOS USE SMARTSET 84434 08/13/2021 08/13/2020 Depression Screening 01/04/2022 01/04/2021 COVID-19 Vaccine ( season) 2023 08/22/2020, 07/25/2020 GFR 12/05/2023 06/06/2023, 04/23, 04/17/2023, Additional history exists Albumin/Creatinine Ratio 05/20/2024 023, 11/27/2022, 06/05/2022, Additional history exists CKD HGB USE SMARTSET 35163 05/20/202405/20, 04/17/2023, 04/17/2023, Additional history exists O2 [...] Not on filedocumented as of this encounter Procedures Procedure Name Priority Date/Time Associated Diagnosis Comments SPIROMETRY B/A BRONCHODILATOR Routine 06/20/2023 7:48 AM EST Dyspnea on exertion documented in this encounter Visit Diagnoses Diagnosis Dyspnea on exertion- Primary Other dyspnea and respiratory abnormality documented in this encounter Administered Medications Active Administered Medications - up to 3 most recent administrations Medication Order MAR Action Action Date Dose Rate Site Albuterol Sulfate (Proventil) (2.5 MG/3ML) 0.083% inhalation solution 2.5 mg 2.5 mg, Nebulizer, ONCE PRN Other, Testing, Starting on Sat06/05/23 at 1758, Until Taina 06/04/24 at 1757, For 365 days, Only one type of albuterol product should be administered (Nebulizer or Inhaler). Please select and document on the appropriate albuterol product order. Given 06/20/2023 7:47 AM EST 2.5 mg documented in this encounter Advance Directives Latest [...] the patient have Health Care Power of Mobile Heavy Equipment Operator? No Care Teams Ramp Manager Relationship Specialty Start Date End Date Kamari Betancourt MD [address] [place] [address] PCP - General Family Medicine 10/09/13 documented as of this encounter
--- OUTSIDE RECORDS SUMMARY | 2023-08-02 07:30 | External Medical Summary | Summary of Care ---
Author Name Unknown Organization [facility] Address [address] [place] [address] Phone [phone] Care Team Providers Care Advanced Practice Rn Name Role Phone Kamari Betancourt MD Primary Care Provider [phone] Reason for Visit * Reason Onset Date Comments Test Results 06/07/2023 Encounter Details Date Type Department Care Team (Late st Contact Info) Description 06/07/2023 Telephone Cardiology, [facility] [address] [place] [address] Taylor Lauren PA-C [address] [place] [id number] Test Results Allergies Active Allergy Reactions Criticality Noted Date Comments Bee Venom Medium 10/09/2013 Swelling documented as of this encounter (statuses as of 06/26/2023) Medications Medication Sig Dispensed Refills Start Date [...] 50 MG TabletIndications:Co ronary artery disease involving [place] heart without angina pectoris, unspecified vessel or [...] MG Sublingual Tablet Sublingual (Nitrostat)Indicatio ns:Atherosclerosis of [place] coronary artery of [place] heart without angina pectoris Place 1 Tab [...] (Isordil)Indications :Primary hypertension,Coronar y artery disease of [place] artery of [place] heart with stable angina pectoris (HCC),S/P coronary [...] as of this encounter (statuses as of 06/26/2023) Active Problems Problem Noted Date Diagnosed Date Generalized osteoarthritis of multiple sites Chronic kidney disease, stage 3a 01/03/2021 Overview: Per CKD protocol History of right nephrectomy 11/14/2020 Chronic diastolic heart failure 02/10/2020 Obstructive lung disease 02/10/2020 HTN (hypertension) 08/05/2019 Coronary artery disease of n ative artery of [place] heart with stable angina pectoris 08/05/2019 Primary osteoarthritis of right ankle 07/03/2018 Personal history of malignant neoplasm of prosta te 01/01/2018 PHYLLIS (obstructive sleep apnea) 06/10/2017 S/P coronary artery stent placement 10/30/2016 Thoracic aortic aneurysm 03/08/2015 Atherosclerosis of [place] co ronary artery without angina pectoris Hyperlipidemia with target LDL less than 70 Overview: ICD-10 update of inactive term documented as of this encounter (statuses as of 06/26/2023) Resolved Problems Problem Noted Date Diagnosed Date Resolved Date Acute conjunctivitis, bilateral 01/13/2015 02/01/2017 Chronic cough 01/13/2015 02/01/2017 Chronic rhinitis 01/13/2015 02/01/2017 Osteoarthritis 07/03/2018 Prostate cancer 01/01/2018 documented as of this encounter (statuses as of 06/26/2023) Immunizations Name Administration Dates Next Due COVID-19 [...] Telephone Encounter - Taylor Lauren PA-C - 06/26/2023 4:37 PM EST Noted. [...] Guzman, so we do not have a July schedule for him yet. * Telephone Encounter [...] 06/07/2023 2:32 PM EST Sent patient a [employer] message to make aware. ----- Message from [...] Description 12/04/2023 8:20 AM EDT Office Visit [facility] [address] [place] [address] Kamari Betancourt MD [address] [place] [address] 01/07/2024 9:00 AM EDT Office Visit [facility] [address] [place] [phone] Tiffany Jefferson CRNP [address] [place] [address] Health Maintenance Due Date Last Done Comments CKD PHOS USE SMARTSET 93405 08/13/2021 08/13/2020 Depression Screening 01/04/2022 01/04/2021 COVID-19 Vaccine ( season) 2023 08/22/2020, 07/25/2020 GFR 12/05/2023 06/06/2023, 04/23, 04/17/2023, Additional history exists Albumin/Creatinine Ratio 05/20/2024 023, 11/27/2022, 06/05/2022, Additional history exists CKD HGB USE SMARTSET 08346 05/20/202405/20, 04/17/2023, 04/17/2023, Additional history exists O2 [...] the patient have Health Care Power of Printer Apprentice? No Care Teams Advanced Practice Rn Relationship Specialty Start Date End Date Kamari Betancourt MD [address] [facility] [place] [address] PCP - General Family Medicine 10/09/13 documented as of this encounter
--- OUTSIDE RECORDS SUMMARY | 2023-08-02 07:30 | External Medical Summary | Summary of Care ---
Author Name Unknown Organization [facility] Address [address] [facility] [place] [address] Phone [phone] Care Team Providers Care Rn Field Case Manager Name Role Phone Kamari Betancourt MD Primary Care Provider [phone] Reason for Visit * Reason Onset Date Comments Test Results 06/07/2023 Encounter Details Date Type Department Care Team (Late st Contact Info) Description 06/07/2023 Telephone Cardiology, [facility] [address] [place] [address] Taylor Lauren PA-C [address] [place] [address] Test Results Allergies Active Allergy Reactions Criticality Noted Date Comments Bee Venom Medium 10/09/2013 Swelling documented as of this encounter (statuses as of 06/24/2023) Medications Medication Sig Dispensed Refills Start Date [...] as of this encounter (statuses as of 06/24/2023) Active Problems Problem Noted Date Diagnosed Date [...] as of this encounter (statuses as of 06/24/2023) Resolved Problems Problem Noted Date Diagnosed Date Resolved Date Acute conjunctivitis, bilateral 01/13/2015 02/01/2017 Chronic cough 01/13/2015 02/01/2017 Chronic rhinitis 01/13/2015 02/01/2017 Osteoarthritis 07/03/2018 Prostate cancer 01/01/2018 documented as of this encounter (statuses as of 06/24/2023) Immunizations Name Administration Dates Next Due COVID-19 [...] encounter Miscellaneous Notes * Telephone Encounter - Beatris Pritchett OSA [...] 06/07/2023 2:32 PM EST Sent patient a [employer] message to make aware. ----- Message from [...] Description 12/04/2023 8:20 AM EDT [facility] [address] [facility] [phone] Kam[facility] [address] [facility] [address] 01/07/2024 9:00 AM EDT Office Visit [facility] Disorders [facility] [address] [place] [phone] Tiffany Jefferson CRNP [address] [place] [address] Health Maintenance Due Date Last Done Comments CKD PHOS USE SMARTSET 12011 08/13/2021 08/13/2020 Depression Screening 01/04/2022 01/04/2021 COVID-19 Vaccine (2022- season) 2023 08/22/2020, 07/25/2020 GFR 12/05/2023 06/06/2023, 04/23, 04/17/2023, Additional history exists Albumin/Creatinine Ratio 05/20/2024 023, 11/27/2022, 06/05/2022, Additional history exists CKD HGB USE SMARTSET 59288 05/20/202405/20, 04/17/2023, 04/17/2023, Additional history exists O2 [...] the patient have Health Care Power of Crown Pouncer? No Care Teams Rn Field Case Manager Relationship Specialty Start Date End Date Kamari Betancourt MD [address] [place] [facility] [place] [address] PCP - General Family Medicine 10/09/13 documented as of this encounter
--- OUTSIDE RECORDS SUMMARY | 2023-08-02 07:30 | External Medical Summary | Summary of Care ---
Author Name Unknown Organization [facility] Address [address] [facility] [place] [address] Phone [phone] Care Team Providers Care Relief Mate Name Role Phone Kamari Betancourt MD Primary Care Provider [phone] Reason for Visit * Reason Comments Follow Up Encounter Details Date Type Department Care Team (Late st Contact Info) Description 07/09/2023 9:30 AM EST Office Visit Cardiology, [facility] [address] [place] [address] Robert Guzman DO [address] [place] [address] Obstructive lung disease ([facility])*; Chronic heart failure with preserved ejection fraction (HFpEF) ([facility]); Chronic diastolic heart failure ([facility]); Coronary artery disease of citizen [place] artery of citizen [place] heart with stable angina pectoris ([facility]); S/P coronary artery stent placement Allergies Active Allergy Reactions Criticality Noted Date Comments Bee Venom Medium 10/09/2013 Swelling documented as of this encounter (statuses as of 07/09/2023) Medications Medication Sig Dispensed Refills Start Date [...] 50 MG TabletIndications:Co ronary artery disease involving citizen [place] heart without angina pectoris, unspecified vessel or [...] MG Sublingual Tablet Sublingual (Nitrostat)Indicatio ns:Atherosclerosis of citizen [place] coronary artery of citizen [place] heart without angina pectoris Place 1 Tab [...] (Isordil)Indications :Primary hypertension,Coronar y artery disease of citizen [place] artery of citizen [place] heart with stable angina pectoris (HCC),S/P coronary artery stent placement Take 2 Tablets by mouth in the morning and 2 Tablets at noon and 2 Tablets in the evening. 540 Tablet 3 06/06/2023 Active Albuterol Sulfate 108 (90 Base) MCG/ACT Inhalation Aerosol Powder Breath Activated Inhale by mouth. 0 [facility], or Other Facility Administered Medication Ordered Dose Route Frequency Start Date End Date Status Albuterol Sulfate (Proventil) (2.5 MG/3ML) 0.083% inhalation solution 2.5 mgIndications:Dyspnea on exertion 2.5 mg NEBULIZER ONCE PRN 06/05/2023 06/04/2024 Active documented as of this encounter (statuses as of 07/09/2023) Active Problems Problem Noted Date Diagnosed Date Generalized osteoarthritis of multiple sites Chronic kidney disease, stage 3a 01/03/2021 Overview: Per CKD protocol History of right nephrectomy 11/14/2020 Chronic diastolic heart failure 02/10/2020 Obstructive lung disease 02/10/2020 HTN (hypertension) 08/05/2019 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 [place] heart with stable angina pectoris 08/05/2019 Primary osteoarthritis of right ankle 07/03/2018 Personal history of malignant neoplasm of prosta te 01/01/2018 PHYLLIS (obstructive sleep apnea) 06/10/2017 S/P coronary artery stent placement 10/30/2016 Thoracic aortic aneurysm 03/08/2015 Atherosclerosis of citizen [place] co ronary artery without angina pectoris Hyperlipidemia with target LDL less than 70 Overview: ICD-10 update of inactive term documented as of this encounter (statuses as of 07/09/2023) Resolved Problems Problem Noted Date Diagnosed Date Resolved Date Acute conjunctivitis, bilateral 01/13/2015 02/01/2017 Chronic cough 01/13/2015 02/01/2017 Chronic rhinitis 01/13/2015 02/01/2017 Osteoarthritis 07/03/2018 Prostate cancer 01/01/2018 documented as of this encounter (statuses as of 07/09/2023) Immunizations Name Administration Dates Next Due COVID-19 [...] Sign Reading Time Taken Comments Blood Pressure 126/74 07/09/2023 9:21 AM EST Pulse 64 07/09/2023 9:21 AM EST Temperature - - Respiratory Rate 16 07/09/2023 9:21 AM EST Oxygen Saturation - - Inhaled Oxygen Concentration - - Weight 95.3 kg (210 lb) 07/09/2023 9:21 AM EST Height - - Body Mass Index 35.63 06/20/2023 8:00 AM EST documented in this encounter Progress Notes * Robert Guzman, DO - 07/09/2023 9:56 AM EST Cardiology Outpatient Follow-up Román Fry is a 82 year old male who is seen for follow-up of heart failure. 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 He underwent a cardiac catheterization in 2021 that showed patent saphenous vein grafts but the REFUGIO graft was not cannulated. Medical management was recommended. 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 Recently he has had some increased shortness of breath with minimal activity. His diuretics have been adjusted with no improvement in his symptoms. He denies orthopnea. He has no lower extremity edema. No activity related chest pain. Past Medical History: Diagnosis Date Chronic cough Chronic rhinitis Coronary artery disease Hyperlipidemia LDL goal < 70 Osteoarthritis Prostate cancer (HCC) Sleep apnea, obstructive Thoracic aortic aneurysm (HCC) Patient Active Problem List Diagnosis Code Atherosclerosis of citizen [place] coronary artery without angina pectoris I25.10 Hyperlipidemia with target LDL less than 70 E78.5 Thoracic aortic aneurysm (HCC) I71.20 S/P coronary artery stent placement Z95.5 PHYLLIS (obstructive sleep apnea) G47.33 Personal history of malignant neoplasm of prostate Z85.46 Primary osteoarthritis of right ankle M19.071 HTN (hypertension) I10 Coronary artery disease of citizen [place] artery of citizen [place] heart with stable angina pectoris (HCC) I25.118 Chronic diastolic heart failure (HCC) I50.32 Obstructive lung disease (HCC) J44.9 History of right nephrectomy Z90.5 Chronic kidney disease, stage 3a (HCC) N18.31 Generalized osteoarthritis of multiple sites M15.9 Past Surgical History: Procedure Laterality Date ARTHROPLASTY KNEE TIBIAL PLATEAU Bilateral - [place] CABG, ARTERY-VEIN, FIVE 2005 [facility] CARDIAC ANGIOPLASTY, PERCUTANEOUS, 1 ARTERY Right 10/23/2016 [facility], CARDIAC ANGIOPLASTY, PERCUTANEOUS, 1 ARTERY performed by Srikanth Kaminski MD at [facility] CARPAL TUNNEL SURGERY Bilateral MISCELLANEOUS ORDER ([facility] ONLY) Low Back sugery - fusion/ Chastity MISCELLANEOUS ORDER ([facility] ONLY) SVT - ablation MISCELLANEOUS ORDER ([facility] ONLY) prostate seed implants/ Ray Randolph MISCELLANEOUS ORDER ([facility] ONLY) Right shoulder repair - Sebastionelli REPAIR INITIAL INGUINAL HERNIA REDUCIBLE AGE 5 OR MORE SPIROMETRY B/A BRONCHODILATOR 01/2015 normal Family History Problem Relation Age of Onset Stroke Mother Heart disease Father Heart disease Brother Social History Tobacco Use Smoking status: Never Smokeless tobacco: Never Vaping Use Vaping Use: Never used Substance Use Topics Alcohol use: No Drug use: No Review of patient's allergies indicates: Allergen Reactions Bee Venom Swelling Current Outpatient Medications Medication Sig Dispense Refill OMEGA-3 FISH OIL 1000 MG PO CAPS Take by mouth . 30 Cap 5 ICAPS LUTEIN-ZEAXANTHIN PO TBCR 1 daily aspirin 81 MG chewable tablet Take 1 Tablet by mouth in the morning. with food.. 100 Tab 5 Acetaminophen ER 650 MG Oral Tablet Extended Release Take 2 Tablets by mouth 2 times a day as needed. metoprolol tartrate (LOPRESSOR) 50 MG Tablet Take 1 Tab by mouth 2 times a day. 14 Tab 0 atorvaSTATin (LIPITOR) 20 MG Tablet Take 1 Tab by mouth daily. 90 Tab 3 Dutasteride 0.5 MG Oral Capsule (Avodart) Take 0.5 mg by mouth daily. 30 Cap 5 BiPAP every night at bedtime . Ranolazine ER 500 MG Oral Tablet Extended Release 12 Hour (Ranexa) Take 1 Tablet by mouth in the morning and 1 Tablet before bedtime. 60 Tablet 11 Probiotic (Lactobacillus) Oral Capsule Take 1 Capsule by mouth in the morning and 1 Capsule before bedtime. 60 Capsule 1 Furosemide 20 MG Oral Tablet (Lasix) TAKE 1 TABLET BY MOUTH ONCE DAILY on Saturday, Saturday and Saturday or as needed 30 Tablet 3 Isosorbide Dinitrate 20 MG Oral Tablet (Isordil) Take 2 Tablets by mouth in the morning and 2 Tablets at noon and 2 Tablets in the evening. 540 Tablet 3 Albuterol Sulfate 108 (90 Base) MCG/ACT Inhalation Aerosol Powder Breath Activated Inhale by mouth. ONE-A-DAY MENS PO TABS 1 TABLET DAILY (Patient not taking: Reported on 01/16/2023) Diclofenac Sodium (VOLTAREN) 1 % gel Place 2 g topically on the skin 4 times a day as needed for Pain, Moderate. To affected area as directed. (Patient not taking: Reported on 04/17/2023) 100 g 5 HYDROcodone-Acetaminophen 7.5-325 MG Oral Tablet Take 1 Tab by mouth every 8 hours as needed for Pain, Severe. (Patient not taking: Reported on 04/17/2023) 30 Tab 0 Nitroglycerin 0.4 MG Sublingual Tablet Sublingual (Nitrostat) Place 1 Tab under the tongue every 5 minutes as needed for Pain, Chest. (Patient not taking: Reported on 04/17/2023) 75 Tab 1 traMADol HCl 50 MG Oral Tablet (Ultram) Take 1 Tab by mouth every 4 hours as needed for Pain, Moderate. (Patient not taking: Reported on 04/17/2023) 30 Tab 0 Amoxicillin 500 MG Oral Capsule (Amoxil) take 4 capsules by mouth for 1 dose 1 HOUR prior to dentalappointment 12 Capsule 1 Amoxicillin-Pot Clavulanate 500-125 MG Oral Tablet Take 1 Tablet by mouth in the morning and 1 Tablet in the evening. (Patient not taking: Reported on 07/09/2023) Current Facility-Administered Medications Medication Dose Route Frequency Provider Last Rate Last Admin Albuterol Sulfate (Proventil) (2.5 MG/3ML) 0.083% inhalation solution 2.5 mg 2.5 mg Nebulizer Once PRN Kamari Betancourt MD 2.5 mg at 06/20/23 0747 ROS: Review of Systems: See HPI for pertinent positives. All other review of systems is negative. PHYSICAL EXAMINATION BP 126/74 | Pulse 64 | Resp 16 | Wt 95.3 kg (210 lb) | BMI 35.63 kg/m | BSA 2.08 m Body mass index is 35.63 kg/m. General: no acute distress and stated age Head: normocephalic, no masses, lesions, tenderness or abnormalities Eyes: conjunctiva are pink and non-injected, sclera clear Neck: supple, no adenopathy, no bruits, normal jugular venous pulse, no hepatojugular reflux Chest: normal shape and normal respiratory effort Lungs: clear to auscultation and percussion Cardiac Exam: - regular rate & rhythm, no murmurs gallops or rubs - normal S1, normal S2 Pulses: 2(+) throughout Abdomen: abdomen soft, non-tender, no abnormal masses and no hepatosplenomegaly Musculoskeletal: no gait disturbance, no joint inflammation, no deforming arthritis Extremities: no edema and no cyanosis Neuro: grossly normal exam Laboratory Data Review: No recent data Impression: CAD S/P remote CABG, with most recent cath in 2021 demonstrating patent grafts. Unable to cannulateIMA graft. 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 He still has baseline shortness of breath with minimal activity. I suspect that this is more related to his underlying lung disease. He does have a scheduled appointment coming with pulmonology. During his last visit he was ordered a 6 minute walk test which has not been completed. I think he probably would benefit from continuous oxygen at home. We will have follow-up with us in 3 months. This chart was completed in part utilizing [employer] Speech Voice Recognition Software. Grammatical errors, random word insertions, prounoun errors, and incomplete sentences are an occasional consequence of this system due to software limitations, ambient noise, and hardware issues. Any formal questions or concerns about the content, text, or information contained within the body of this dictation should be directly addressed to the provider for clarification. I spent a total of 40-54 minutes (exact time 45 mins) on the date of service in preparation, delivery, and documentation of the care provided to Román Fry excluding any time spent in the performance of separately billed services. Robert Guzman DO Cardiology, [address] [place] [address] 07/09/2023 documented in this encounter Nursing Notes * Fantasma Rocha, RN - 07/09/2023 9:20 AM EST Examination Room: room 17 Name: Román Fry Date of : (1940). Reason for Visit: for follow up Interim Hospitalization(s): denies Problems/Concerns: denies Chest Pain/SOB: gets YBARRA denies [facility] Discussed: Not applicable My [facility] is a way you can talk to your provider online through e-mail. Would you like to sign up? I can activate it for you? ALREADY ACTIVE Patient was instructed to not get up on the exam table until directed and assisted by their provider; patient is to remain seated in the chair/ wheelchair/ exam table for fall prevention and safety reasons. Patient is aware to have assistance to step down off exam table with personnel. Patient voiced full comprehension of instructions. documented in this encounter Plan of Treatment Upcoming Encounters Date Type Department Care Team (Late st Contact Info) Description 08/14/2023 1:40 PM EST Office Visit Pulmonary Medicine, [address] [place] [address] Ruben Meehan MD [address] [place] [address] 10/08/2023 9:00 AM EDT Office Visit Cardiology, [facility] [place] [address] Candis Poole PA-C [address] [place] [address] 12/04/2023 8:20 AM EDT Office Visit [facility] [address] [facility] [place] [phone] Kamari Betancourt MD [address] [place] [address] 01/07/2024 9:00 AM EDT Office Visit [facility] Disorders Ctr [facility] [address] [place] [phone] Tiffany Jefferson CRNP [address] [place] [address] Scheduled Orders Name Type Priority Associated Diagnoses Orde r Schedule PULMONARY STRESS TESTING Procedures Routine Chronic heart failure with preserved ejection fraction (HFpEF) (HCC) Chronic diastolic heart failure (HCC) Coronary artery disease of citizen [place] artery of citizen [place] heart with stable angina pectoris (HCC) S/P coronary artery stent placement Obstructive lung disease (HCC) Ordered: 07/09/2023 Health Maintenance Due Date Last Done Comments CKD PHOS USE SMARTSET 29095 08/13/2021 08/13/2020 Depression Screening 01/04/2022 01/04/2021 COVID-19 Vaccine ( season) 2023 08/22/2020, 07/25/2020 GFR 12/05/2023 06/06/2023, 04/23, 04/17/2023, Additional history exists Albumin/Creatinine Ratio 05/20/2024 023, 11/27/2022, 06/05/2022, Additional history exists CKD HGB USE SMARTSET 61074 05/20/202405/20, 04/17/2023, 04/17/2023, Additional history exists O2 [...] as of this encounter Visit Diagnoses Diagnosis Obstructive lung disease (HCC)- Primary Chronic airway obstruction, not elsewhere classified Chronic heart failure with preserved ejection fraction (HFpEF) (HCC) Chronic diastolic heart failure (HCC) Chronic diastolic heart failure 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 No Care Teams Relief Mate Relationship Specialty Start Date End Date Kamari Betancourt MD [address] [place] [address] PCP - General Family Medicine 10/09/13 documented as of this encounter"
--- OUTSIDE RECORDS SUMMARY | 2023-08-02 07:30 | External Medical Summary | Summary of Care ---
Author Name Unknown Organization [facility] Address [address] [facility] [place] [address] Phone [phone] Care Team Providers Care Auricular Therapist Name Role Phone Kamari Betancourt MD Primary Care Provider Reason for Visit * Reason Onset Date Comments Test Results 07/19/2023 Encounter Details Date Type Department Care Team (Late st Contact Info) Description 07/19/2023 Telephone [facility] [address] [place] [address] Kamari Betancourt MD [address] [place] [address] Test Results Allergies Active Allergy Reactions Criticality Noted Date Comments Bee Venom Medium 10/09/2013 Swelling documented as of this encounter (statuses as of 07/19/2023) Medications Medication Sig Dispensed Refills Start Date [...] 50 MG TabletIndications:Co ronary artery disease involving [place] heart without angina pectoris, unspecified vessel or [...] MG Sublingual Tablet Sublingual (Nitrostat)Indicatio ns:Atherosclerosis of [place] coronary artery of [place] heart without angina pectoris Place 1 Tab [...] (Isordil)Indications :Primary hypertension,Coronar y artery disease of [place] artery of [place] heart with stable angina pectoris (HCC),S/P coronary artery stent placement Take 2 Tablets by mouth in the morning and 2 Tablets at noon and 2 Tablets in the evening. 540 Tablet 3 06/06/2023 Active Albuterol Sulfate 108 (90 Base) MCG/ACT Inhalation Aerosol Powder Breath Activated Inhale by mouth. 0 [facility], Clinic, or Other Facility Administered Medication Ordered Dose Route Frequency Start Date End Date Status Albuterol Sulfate (Proventil) (2.5 MG/3ML) 0.083% inhalation solution 2.5 mgIndications:Dyspnea on exertion 2.5 mg NEBULIZER ONCE PRN 06/05/2023 06/04/2024 Active documented as of this encounter (statuses as of 07/19/2023) Active Problems Problem Noted Date Diagnosed Date Generalized osteoarthritis of multiple sites Chronic kidney disease, stage 3a 01/03/2021 Overview: Per CKD protocol History of right nephrectomy 11/14/2020 Chronic diastolic heart failure 02/10/2020 Obstructive lung disease 02/10/2020 HTN (hypertension) 08/05/2019 Coronary artery disease of n ative artery of [place] heart with stable angina pectoris 08/05/2019 Primary osteoarthritis of right ankle 07/03/2018 Personal history of malignant neoplasm of prosta te 01/01/2018 PHYLLIS (obstructive sleep apnea) 06/10/2017 S/P coronary artery stent placement 10/30/2016 Thoracic aortic aneurysm 03/08/2015 Atherosclerosis of [place] co ronary artery without angina pectoris Hyperlipidemia with target LDL less than 70 Overview: ICD-10 update of inactive term documented as of this encounter (statuses as of 07/19/2023) Resolved Problems Problem Noted Date Diagnosed Date Resolved Date Acute conjunctivitis, bilateral 01/13/2015 02/01/2017 Chronic cough 01/13/2015 02/01/2017 Chronic rhinitis 01/13/2015 02/01/2017 Osteoarthritis 07/03/2018 Prostate cancer 01/01/2018 documented as of this encounter (statuses as of 07/19/2023) Immunizations Name Administration Dates Next Due COVID-19 [...] encounter Miscellaneous Notes * Telephone Encounter - Ludivina Ann LPN - 07/19/2023 1:32 PM EST Patient's daughter aware and verbalized understanding * Telephone Encounter - Ludivina Ann LPN - 07/19/2023 1:28 PM EST ----- Message from Kamari Betancourt MD sent at 07/17/2023 9:07 AM EST ----- The recent pulmonary function tests did not show underlying COPD. But the results are not normal- asignificant decrease in last 3 years. Also did not show asthma. There is another type of lung disease called restrictive disease which may be cause of your shortness of breath. You would have to haveadditional breathing tests to confirm restrictive lung disease. You are to see pulmonary medicine within 1 month. I will leave it up to them to decide if additional testing warranted. documented in this encounter Plan of Treatment Upcoming Encounters Date Type Department Care Team (Late st Contact Info) Description 08/14/2023 1:40 PM EST Office Visit Pulmonary Medicine, [facility] [address] [facility] [place] [address] Ruben Meehan MD [address] [place] [address] 10/08/2023 9:00 AM EDT Office Visit Cardiology, [facility] [address] [facility] [address] [place] [address] Candis Poole PA-C [address] [place] [address] 12/04/2023 8:20 AM EDT Office Visit [facility] [address] [facility], [place] [phone] Kamari Betancourt MD [address] [place] [address] 01/07/2024 9:00 AM EDT Office Visit [facility] [address] [place] [phone] Tiffany Jefferson CRNP [address] [place] [address] Health Maintenance Due Date Last Done Comments CKD PHOS USE SMARTSET 62492 08/13/2021 08/13/2020 Depression Screening 01/04/2022 01/04/2021 COVID-19 Vaccine (2022- season) 2023 08/22/2020, 07/25/2020 GFR 12/05/2023 06/06/2023, 04/23, 04/17/2023, Additional history exists Albumin/Creatinine Ratio 05/20/202405/20/ 023, 11/27/2022, 06/05/2022, Additional history exists CKD HGB USE SMARTSET 86895 05/20/202405/20, 04/17/2023, 04/17/2023, Additional history exists O2 [...] the patient have Health Care Power of Clerical Supervisor? No Care Teams Auricular Therapist Relationship Specialty Start Date End Date Kamari Betancourt MD [address] [place] [address] PCP - General Family Medicine 10/09/13 documented as of this encounter
--- OUTSIDE RECORDS SUMMARY | 2023-08-02 07:30 | External Medical Summary | Summary of Care ---
Author Name Unknown Organization [facility] Address [address] [facility] [place] [address] Phone [phone] Care Team Providers Care Dredge Captain Name Role Phone Kamari Betancourt MD Primary Care Provider [phone] Reason for Visit * Reason Comments Follow Up Encounter Details Date Type Department Care Team (Late st Contact Info) Description 07/09/2023 9:30 AM EST Office Visit Cardiology, [facility] [address] [place] [address] Robert Guzman DO [address] [place] [address] Obstructive lung disease ([facility])*; Chronic heart failure with preserved ejection fraction (HFpEF) ([facility]); Chronic diastolic heart failure ([facility]); Coronary artery disease of [place] artery of [place] heart with stable angina pectoris ([facility]); S/P coronary artery stent placement Allergies Active [...] 50 MG TabletIndications:Co ronary artery disease involving [place] heart without angina pectoris, unspecified vessel or [...] MG Sublingual Tablet Sublingual (Nitrostat)Indicatio ns:Atherosclerosis of [place] coronary artery of [place] heart without angina pectoris Place 1 Tab [...] (Isordil)Indications :Primary hypertension,Coronar y artery disease of [place] artery of [place] heart with stable angina pectoris (HCC),S/P coronary artery stent placement Take 2 Tablets by mouth in the morning and 2 Tablets at noon and 2 Tablets in the evening. 540 Tablet 3 06/06/2023 Active Albuterol Sulfate 108 (90 Base) MCG/ACT Inhalation Aerosol Powder Breath Activated Inhale [facility] mouth. [facility], or Other Facility Administered Medication Ordered [...] artery disease of n ative artery of [place] heart with stable angina pectoris 08/05/2019 Primary osteoarthritis of right ankle 07/03/2018 Personal history of malignant neoplasm of prosta te 01/01/2018 PHYLLIS (obstructive sleep apnea) 06/10/2017 S/P coronary artery stent placement 10/30/2016 Thoracic aortic aneurysm 03/08/2015 Atherosclerosis of [place] co ronary artery without angina pectoris Hyperlipidemia [...] failure. 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 with a history of coronary artery disease [...] Active Problem List Diagnosis Code Atherosclerosis of [place] coronary artery without angina pectoris I25.10 Hyperlipidemia with target LDL less than 70 E78.5 Thoracic aortic aneurysm (HCC) I71.20 S/P coronary artery stent placement Z95.5 PHYLLIS (obstructive sleep apnea) G47.33 Personal history of malignant neoplasm of prostate Z85.46 Primary osteoarthritis of right ankle M19.071 HTN (hypertension) I10 Coronary artery disease of [place] artery of [place] heart with stable angina pectoris (HCC) I25.118 Chronic diastolic heart failure (HCC) I50.32 Obstructive lung disease (HCC) J44.9 History of right nephrectomy Z90.5 Chronic kidney disease, stage 3a (HCC) N18.31 Generalized osteoarthritis of multiple sites M15.9 Past Surgical History: Procedure Laterality Date ARTHROPLASTY KNEE TIBIAL PLATEAU Bilateral - Ro[place]hot CABG, ARTERY-VEIN, FIVE [place] [facility] [place]IAC ANGIOPLASTY, PERCUTANEOUS, 1 ARTERY Right 10/23/2016 PTCA, CARDIAC ANGIOPLASTY, PERCUTANEOUS, 1 ARTERY performed by Srikanth Kaminski MD at [facility] [place] CARPAL TUNNEL SURGERY Bilateral MISCELLANEOUS ORDER ([facility] [...] This chart was completed in part utilizing [employer] Speech Voice Recognition Software. Grammatical errors, random [...] separately billed services. Robert Guzman DO Cardiology, [address] [place] [address] 07/09/2023 documented in this encounter Nursing Notes * Fantasma Rocha, RN - 07/09/2023 9:20 AM EST Examination Room: room 17 Name: Román Fry Date of : (1940). Reason for Visit: for follow up Interim Hospitalization(s): denies Problems/Concerns: denies Chest Pain/SOB: gets [facility] denies [facility] Discussed: Not applicable [facility] a way you can talk to [...] 1:40 PM EST Office Visit Pulmonary Medicine, [address] [place] [address] Ruben Meehan MD [address] [place] [address] 10/08/2023 9:00 AM EDT Office Visit Cardiology, [facility] [address] [facility] [place] [address] Candis Poole PA-C [address] [place] [address] 12/04/2023 8:20 AM EDT Office Visit [facility] [address] [facility], [place] [phone] Kamari Betancourt MD [address] [place] [address] 01/07/2024 9:00 AM EDT Office Visit [facility] Disorders [facility] [address] [place] [phone] Tiffany Jefferson CRNP [address] [place] [address] Scheduled Orders Name Type Priority Associated Diagnoses Orde r Schedule PULMONARY STRESS TESTING Procedures Routine Chronic heart failure with preserved ejection fraction (HFpEF) (HCC) Chronic diastolic heart failure (HCC) Coronary artery disease of [place] artery of [place] heart with stable angina pectoris (HCC) S/P coronary artery stent placement Obstructive lung disease (HCC) Ordered: 07/09/2023 Health Maintenance Due Date Last Done Comments CKD PHOS USE SMARTSET 19129 08/13/2021 08/13/2020 Depression Screening 01/04/2022 01/04/2021 COVID-19 Vaccine ( season) 2023 08/22/2020, 07/25/2020 GFR 12/05/2023 06/06/2023, 04/23, 04/17/2023, Additional history exists Albumin/Creatinine Ratio 05/20/2024 023, 11/27/2022, 06/05/2022, Additional history exists CKD HGB USE SMARTSET 21529 05/20/202405/20, 04/17/2023, 04/17/2023, Additional history exists O2 [...] diastolic heart failure Coronary artery disease of [place] artery of [place] heart with stable angina pectoris (HCC) S/P [...] the patient have Health Care Power of Aquatic Physiotherapist? No Care Teams Dredge Captain Relationship Specialty Start Date End Date Kamari Betancourt MD [address] [place] [address] PCP - General Family Medicine 10/09/13 documented as of this encounter"
--- OUTSIDE RECORDS SUMMARY | 2023-08-02 07:30 | External Medical Summary | Summary of Care ---
Author Name Unknown Organization [facility] Address [address] [facility] [place] [address] Phone [phone] Care Team Providers Care Community Support Associate Name Role Phone Kamari Betancourt MD Primary Care Provider [phone] Reason for Visit * Reason Comments Oxygen Assessment [address] Encounter Details Date Type Department Care Team (Latest Contact Info) Description 07/17/2023 11:30 AM EST PulmDiagnostic Pulmonary Function Lab, [facility] [address] [address] [place], [address] [place] [address] Chronic diastolic heart failure (HCC)*; Chronic heart failure with preserved ejection fraction (HFpEF) (HCC); Coronary artery disease of [place] artery of [place] heart with stable angina pectoris (HCC); Obstructive lung disease (HCC); S/P coronary artery stent placement Allergies Active Allergy Reactions Criticality Noted Date Comments Bee Venom Medium 10/09/2013 Swelling documented as of this encounter (statuses as of 07/17/2023) Medications Medication Sig Dispensed Refills Start Date [...] 50 MG TabletIndications:Co ronary artery disease involving [place] heart without angina pectoris, unspecified vessel or [...] MG Sublingual Tablet Sublingual (Nitrostat)Indicatio ns:Atherosclerosis of [place] coronary artery of [place] heart without angina pectoris Place 1 Tab [...] (Isordil)Indications :Primary hypertension,Coronar y artery disease of [place] artery of [place] heart with stable angina pectoris (HCC),S/P coronary artery stent placement Take 2 Tablets by mouth in the morning and 2 Tablets at noon and 2 Tablets in the evening. 540 Tablet 3 06/06/2023 Active Albuterol Sulfate 108 (90 Base) MCG/ACT Inhalation Aerosol Powder Breath Activated Inhale by mouth. 0 [facility], Clinic, or Other Facility Administered Medication Ordered Dose Route Frequency Start Date End Date Status Albuterol Sulfate (Proventil) (2.5 MG/3ML) 0.083% inhalation solution 2.5 mgIndications:Dyspnea on exertion 2.5 mg NEBULIZER ONCE PRN 06/05/2023 06/04/2024 Active documented as of this encounter (statuses as of 07/17/2023) Active Problems Problem Noted Date Diagnosed Date Generalized osteoarthritis of multiple sites Chronic kidney disease, stage 3a 01/03/2021 Overview: Per CKD protocol History of right nephrectomy 11/14/2020 Chronic diastolic heart failure 02/10/2020 Obstructive lung disease 02/10/2020 HTN (hypertension) 08/05/2019 Coronary artery disease of n ative artery of [place] heart with stable angina pectoris 08/05/2019 Primary osteoarthritis of right ankle 07/03/2018 Personal history of malignant neoplasm of prosta te 01/01/2018 PHYLLIS (obstructive sleep apnea) 06/10/2017 S/P coronary artery stent placement 10/30/2016 Thoracic aortic aneurysm 03/08/2015 Atherosclerosis of [place] co ronary artery without angina pectoris Hyperlipidemia with target LDL less than 70 Overview: ICD-10 update of inactive term documented as of this encounter (statuses as of 07/17/2023) Resolved Problems Problem Noted Date Diagnosed Date Resolved Date Acute conjunctivitis, bilateral 01/13/2015 02/01/2017 Chronic cough 01/13/2015 02/01/2017 Chronic rhinitis 01/13/2015 02/01/2017 Osteoarthritis 07/03/2018 Prostate cancer 01/01/2018 documented as of this encounter (statuses as of 07/17/2023) Immunizations Name Administration Dates Next Due COVID-19 [...] Sign Reading Time Taken Comments Blood Pressure 120/70 07/17/2023 11:12 AM EST Pulse 74 07/17/2023 11:12 AM EST Temperature - - Respiratory Rate 18 07/17/2023 11:1 2 AM EST Oxygen Saturation 97% 07/17/2023 11: 12 AM EST Inhaled Oxygen Concentration - - Weight 95.7 kg (210 lb 15.7 oz) 023 11:12 AM EST Height 163.5 cm (5' 4.37") 07/17/2023 1 1:12 AM EST Body Mass Index 35.8 07/17/2023 11:12 AM EST documented in this encounter Nursing Notes * Rosa Moore RRT - 07/17/2023 11:18 AM EST Román Fry was identified by name, Date of : (1940), and . Vitals were obtained for testing. Body mass index is 35.8 kg/m. Exercise oximetry performed on room air x 6 minutes. Pt ambulated 1080 feet/ 329 meters. No rest periods were required. Lowest SPO2 on room air was 91%. documented in this encounter Plan of Treatment Upcoming Encounters Date Type Department Care Team (Late st Contact Info) Description 08/14/2023 1:40 PM EST Office Visit Pulmonary Medicine, [facility] [address] [place] [address] Ruben Meehan MD [address] [place] [address] 10/08/2023 9:00 AM EDT Office Visit Cardiology, [facility] [address] [facility] [place] [address] Candis Poole PA-C [address] [place] [address] 12/04/2023 8:20 AM EDT Office Visit Family [address] [phone] Kamari Betancourt MD [address] [place], [place] [address] 01/07/2024 9:00 AM EDT Office Visit Sleep Disorders [facility] [address] [facility] [place] [phone] Tiffany Jefferson CRNP 132 [facility] [place] [address] Scheduled Orders Name Type Priority Associated Diagnoses Orde r Schedule PULMONARY STRESS TESTING Procedures Routine Chronic heart failure with preserved ejection fraction (HFpEF) (HCC) Chronic diastolic heart failure (HCC) Coronary artery disease of [place] artery of [place] heart with stable angina pectoris (HCC) S/P coronary artery stent placement Obstructive lung disease (HCC) Ordered: 07/09/2023 Health Maintenance Due Date Last Done Comments CKD PHOS USE SMARTSET 13320 08/13/2021 08/13/2020 Depression Screening 01/04/2022 01/04/2021 COVID-19 Vaccine ( season) 2023 08/22/2020, 07/25/2020 GFR 12/05/2023 06/06/2023, 04/23, 04/17/2023, Additional history exists Albumin/Creatinine Ratio 05/20/2024 023, 11/27/2022, 06/05/2022, Additional history exists CKD HGB USE SMARTSET 80783 05/20/202405/20, 04/17/2023, 04/17/2023, Additional history exists O2 ASSESSMENT COMPLETED IN PAST YEAR FOR COPD 06/06/2024 07/17/2023 DTaP,Tdap,and Td Vaccines (3 - Td [...] failure (HCC)- Primary Chronic diastolic heart failure Chronic heart failure with preserved ejection fraction (HFpEF) (HCC) Coronary artery disease of [place] artery of [place] heart with stable angina pectoris (HCC) Obstructive lung disease (HCC) Chronic airway obstruction, not elsewhere classified S/P coronary artery stent placement Postsurgical percutaneous [...] the patient have Health Care Power of Shaper Operator? No Care Teams Community Support Associate Relationship Specialty Start Date End Date Kamari Betancourt MD [address] [place] [address] PCP - General Family Medicine 10/09/13 documented as of this encounter
--- OUTSIDE RECORDS SUMMARY | 2023-08-02 07:31 | External Medical Summary | Summary of Care ---
Author Name Unknown Organization [facility] Address [address] [facility] [place] [address] Phone [phone] Care Team Providers Care Sofa Cover Inspector Name Role Phone Kamari Betancourt MD Primary Care Provider [phone] Reason for Visit * Reason Comments Outpatient Testing Encounter Details Date Type Department Care Team (Late st Contact Info) Description 06/06/2023 2:40 PM EST Laboratory Laboratory, [facility] [address] [facility] [place] [phone] [facility] 132 [place] [address] HTN (hypertension); Chronic heart failure with preserved ejection fraction (HFpEF) (HCC) Allergies Active Allergy Reactions Criticality Noted Date Comments Bee Venom Medium 10/09/2013 Swelling documented as of this encounter (statuses as of 06/06/2023) Medications Medication Sig Dispensed Refills Start Date [...] 50 MG TabletIndications:Co ronary artery disease involving [place] heart without angina pectoris, unspecified vessel or [...] MG Sublingual Tablet Sublingual (Nitrostat)Indicatio ns:Atherosclerosis of [place] coronary artery of [place] heart without angina pectoris Place 1 Tab [...] (Isordil)Indications :Primary hypertension,Coronar y artery disease of [place] artery of [place] heart with stable angina pectoris (HCC),S/P coronary [...] as of this encounter (statuses as of 06/06/2023) Active Problems Problem Noted Date Diagnosed Date Generalized osteoarthritis of multiple sites Chronic kidney disease, stage 3a 01/03/2021 Overview: Per CKD protocol History of right nephrectomy 11/14/2020 Chronic diastolic heart failure 02/10/2020 Obstructive lung disease 02/10/2020 HTN (hypertension) 08/05/2019 Coronary artery disease of n ative artery of [place] heart with stable angina pectoris 08/05/2019 Primary osteoarthritis of right ankle 07/03/2018 Personal history of malignant neoplasm of prosta te 01/01/2018 PHYLLIS (obstructive sleep apnea) 06/10/2017 S/P coronary artery stent placement 10/30/2016 Thoracic aortic aneurysm 03/08/2015 Atherosclerosis of [place] co ronary artery without angina pectoris Hyperlipidemia with target LDL less than 70 Overview: ICD-10 update of inactive term documented as of this encounter (statuses as of 06/06/2023) Resolved Problems Problem Noted Date Diagnosed Date Resolved Date Acute conjunctivitis, bilateral 01/13/2015 02/01/2017 Chronic cough 01/13/2015 02/01/2017 Chronic rhinitis 01/13/2015 02/01/2017 Osteoarthritis 07/03/2018 Prostate cancer 01/01/2018 documented as of this encounter (statuses as of 06/06/2023) Immunizations Name Administration Dates Next Due COVID-19 [...] on file documented as of this encounter Plan of Treatment Upcoming Encounters Date Type Department Care Team (Late st Contact Info) Description 06/20/2023 8:00 AM EST PulmDiagnostic Pulmonary Function Lab, [facility] 132 [facility] [place] [address] [place], [address] [facility] [place] [address] 12/04/2023 8:20 AM EDT Office Visit [facility] [address] [place] [address] Kamari Betancourt MD [address] [place] [address] 01/07/2024 9:00 AM EDT Office Visit Sleep Disorders [facility] 132 [facility] [place] [phone] Tiffany Jefferson CRNP [address] [facility] [address] Pending Results Name Type Priority Associated Diagnoses Date /Time BASIC METABOLIC PANEL Lab Routine HTN (hypertension) Chronic heart failure with preserved ejection fraction (HFpEF) ([facility]) 06/06/2023 2:37 PM EST BNP, NT-PRO Lab Routine HTN (hypertension) Chronic heart failure with preserved ejection fraction (HFpEF) ([facility]) 06/06/2023 2:37 PM EST Health Maintenance Due Date Last Done Comments CKD PHOS USE SMARTSET 45996 08/13/2021 08/13/2020 Depression Screening 01/04/2022 01/04/2021 COVID-19 Vaccine ( season) 2023 08/22/2020, 07/25/2020 GFR 11/19/2023 05/20/2023, 03/23, 11/27/2022, Additional history exists O2 ASSESSMENT COMPLETED IN PAST YEAR FOR COPD 01/04/2024 01/03/2023 Albumin/Creatinine Ratio 05/20/2024 023, 11/27/2022, 06/05/2022, Additional history exists CKD HGB USE SMARTSET 43493 05/20/202405/20, 04/17/2023, 04/17/2023, Additional history exists DTaP,Tdap,and Td Vaccines (3 - Td or [...] as of this encounter Visit Diagnoses Diagnosis HTN (hypertension) Unspecified essential hypertension Chronic heart failure with preserved ejection fraction (HFpEF) (HCC) documented in this encounter Advance Directives Latest [...] the patient have Health Care Power of Grout Machine Operator? No Care Teams Sofa Cover Inspector Relationship Specialty Start Date End Date Kamari Betancourt MD [address] [facility] [place] [address] PCP - General Family Medicine 10/09/13 documented as of this encounter
--- OUTSIDE RECORDS SUMMARY | 2023-08-02 07:31 | External Medical Summary | Summary of Care ---
Author Name Unknown Organization [facility] Address [address] [facility] [place] [address] Phone [phone] Care Team Providers Care Hooker Laster Name Role Phone Kamari Betacnourt MD Primary Care Provider [phone] Reason for Visit * Reason Onset Date Comments Test Results 06/07/2023 Encounter Details Date Type Department Care Team (Late st Contact Info) Description 06/07/2023 Telephone Cardiology, [facility] [address] [place] [address] Taylor Lauren PA-C [address] [place] [address] Test Results Allergies Active Allergy Reactions Criticality Noted Date Comments Bee Venom Medium 10/09/2013 Swelling documented as of this encounter (statuses as of 06/10/2023) Medications Medication Sig Dispensed Refills Start Date [...] 50 MG TabletIndications:Co ronary artery disease involving [place] heart without angina pectoris, unspecified vessel or [...] MG Sublingual Tablet Sublingual (Nitrostat)Indicatio ns:Atherosclerosis of [place] coronary artery of [place] heart without angina pectoris Place 1 Tab [...] (Isordil)Indications :Primary hypertension,Coronar y artery disease of [place] artery of [place] heart with stable angina pectoris (HCC),S/P coronary [...] as of this encounter (statuses as of 06/10/2023) Active Problems Problem Noted Date Diagnosed Date Generalized osteoarthritis of multiple sites Chronic kidney disease, stage 3a 01/03/2021 Overview: Per CKD protocol History of right nephrectomy 11/14/2020 Chronic diastolic heart failure 02/10/2020 Obstructive lung disease 02/10/2020 HTN (hypertension) 08/05/2019 Coronary artery disease of n ative artery of [place] heart with stable angina pectoris 08/05/2019 Primary osteoarthritis of right ankle 07/03/2018 Personal history of malignant neoplasm of prosta te 01/01/2018 PHYLLIS (obstructive sleep apnea) 06/10/2017 S/P coronary artery stent placement 10/30/2016 Thoracic aortic aneurysm 03/08/2015 Atherosclerosis of [place] co ronary artery without angina pectoris Hyperlipidemia with target LDL less than 70 Overview: ICD-10 update of inactive term documented as of this encounter (statuses as of 06/10/2023) Resolved Problems Problem Noted Date Diagnosed Date Resolved Date Acute conjunctivitis, bilateral 01/13/2015 02/01/2017 Chronic cough 01/13/2015 02/01/2017 Chronic rhinitis 01/13/2015 02/01/2017 Osteoarthritis 07/03/2018 Prostate cancer 01/01/2018 documented as of this encounter (statuses as of 06/10/2023) Immunizations Name Administration Dates Next Due COVID-19 [...] 06/07/2023 2:32 PM EST Sent patient a WallSt[employer] message to make aware. ----- Message from [...] 8:00 AM EST PulmDiagnostic Pulmonary Function Lab, [facility] [address] [address] [address], [address] [place] [address] 12/04/2023 8:20 AM EDT Office Visit [address] [place] [id number] Kamari Betancourt MD [address] [place] [address] 01/07/2024 9:00 AM EDT Office Visit [facility] [address] [place] [phone] Tiffany Jefferson CRNP [address] [place] [address] Health Maintenance Due Date Last Done Comments CKD PHOS USE SMARTSET 29444 08/13/2021 08/13/2020 Depression Screening 01/04/2022 01/04/2021 COVID-19 Vaccine (2022- season) 2023 08/22/2020, 07/25/2020 GFR 12/05/2023 06/06/2023, 04/23, 04/17/2023, Additional history exists Albumin/Creatinine Ratio 05/20/2024 023, 11/27/2022, 06/05/2022, Additional history exists CKD HGB USE SMARTSET 07381 05/20/202405/20, 04/17/2023, 04/17/2023, Additional history exists O2 [...] the patient have Health Care Power of Mannequin Decorator? No Care Teams Hooker Laster Relationship Specialty Start Date End Date Kamari Betancourt MD [address] [place] [address] PCP - General Family Medicine 10/09/13 documented as of this encounter
--- OUTSIDE RECORDS SUMMARY | 2023-08-02 07:31 | External Medical Summary | Summary of Care ---
Author Name Unknown Organization [facility] Address [address] [facility] [place] [address] Phone [phone] Care Team Providers Care Bead Trimmer Name Role Phone Kamari Betancourt MD Primary Care Provider [phone] Reason for Visit * Reason Onset Date Comments Test Results 06/07/2023 Encounter Details Date Type Department Care Team (Late st Contact Info) Description 06/07/2023 Telephone Cardiology, [facility] [address] [place] [address] Taylor Lauren PA-C [address] [place] [address] Test Results Allergies Active Allergy Reactions Criticality Noted Date Comments Bee Venom Medium 10/09/2013 Swelling documented as of this encounter (statuses as of 06/07/2023) Medications Medication Sig Dispensed Refills Start Date [...] 50 MG TabletIndications:Co ronary artery disease involving [place] heart without angina pectoris, unspecified vessel or [...] MG Sublingual Tablet Sublingual (Nitrostat)Indicatio ns:Atherosclerosis of [place] coronary artery of [place] heart without angina pectoris Place 1 Tab [...] (Isordil)Indications :Primary hypertension,Coronar y artery disease of [place] artery of [place] heart with stable angina pectoris (HCC),S/P coronary [...] as of this encounter (statuses as of 06/07/2023) Active Problems Problem Noted Date Diagnosed Date Generalized osteoarthritis of multiple sites Chronic kidney disease, stage 3a 01/03/2021 Overview: Per CKD protocol History of right nephrectomy 11/14/2020 Chronic diastolic heart failure 02/10/2020 Obstructive lung disease 02/10/2020 HTN (hypertension) 08/05/2019 Coronary artery disease of n ative artery of [place] heart with stable angina pectoris 08/05/2019 Primary osteoarthritis of right ankle 07/03/2018 Personal history of malignant neoplasm of prosta te 01/01/2018 PHYLLIS (obstructive sleep apnea) 06/10/2017 S/P coronary artery stent placement 10/30/2016 Thoracic aortic aneurysm 03/08/2015 Atherosclerosis of [place] co ronary artery without angina pectoris Hyperlipidemia with target LDL less than 70 Overview: ICD-10 update of inactive term documented as of this encounter (statuses as of 06/07/2023) Resolved Problems Problem Noted Date Diagnosed Date Resolved Date Acute conjunctivitis, bilateral 01/13/2015 02/01/2017 Chronic cough 01/13/2015 02/01/2017 Chronic rhinitis 01/13/2015 02/01/2017 Osteoarthritis 07/03/2018 Prostate cancer 01/01/2018 documented as of this encounter (statuses as of 06/07/2023) Immunizations Name Administration Dates Next Due COVID-19 [...] encounter Miscellaneous Notes * Telephone Encounter - Jordan Quezada LPN - 06/07/2023 2:32 PM EST Sent patient a SoundBetter message to make aware. ----- Message from [...] 8:00 AM EST PulmDiagnostic Pulmonary Function Lab, [facility] [address] [facility] [place] [address] [address], [address] [facility] [place] [address] 12/04/2023 8:20 AM EDT Office Visit [facility] [address] [place] [facility] [place] [phone] Kamari Betancourt MD [address] [place] [facility] [place] [place] [facility] [place] [address] 01/07/2024 9:00 AM EDT Office Visit [facility] [address] [place] [address] Tiffany Jefferson CRNP [address] [place] [address] Health Maintenance Due Date Last Done Comments CKD PHOS USE SMARTSET 15753 08/13/2021 08/13/2020 Depression Screening 01/04/2022 01/04/2021 COVID-19 Vaccine ( season) 2023 08/22/2020, 07/25/2020 GFR 12/05/2023 06/06/2023, 04/23, 04/17/2023, Additional history exists Albumin/Creatinine Ratio 05/20/2024 023, 11/27/2022, 06/05/2022, Additional history exists CKD HGB USE SMARTSET 20143 05/20/202405/20, 04/17/2023, 04/17/2023, Additional history exists O2 [...] the patient have Health Care Power of Department Supervisor? No Care Teams Bead Trimmer Relationship Specialty Start Date End Date Kamari Betancourt MD [address] [place] [address] PCP - General Family Medicine 10/09/13 documented as of this encounter
--- OUTSIDE RECORDS SUMMARY | 2023-08-02 07:31 | External Medical Summary | Summary of Care ---
Author Name Unknown Organization [facility] Address [address] [facility] [place] [address] Phone [phone] Care Team Providers Care Night Clerk Auditor Name Role Phone Kamari Betancourt MD Primary Care Provider [phone] Reason for Visit * Reason Onset Date Comments Test Results 06/07/2023 Encounter Details Date Type Department Care Team (Late st Contact Info) Description 06/07/2023 Telephone Cardiology, [facility] [address] [place] [address] Taylor Lauren PA-C [address] [place] [address] Test Results Allergies Active Allergy Reactions Criticality [...] 50 MG TabletIndications:Co ronary artery disease involving [place] heart without angina pectoris, unspecified vessel [...] MG Sublingual Tablet Sublingual (Nitrostat)Indicatio ns:Atherosclerosis of [place] coronary artery of [place] heart without angina pectoris Place 1 [...] (Isordil)Indications :Primary hypertension,Coronar y artery disease of [place] artery of [place] heart with stable angina pectoris (HCC),S/P [...] artery disease of n ative artery of [place] heart with stable angina pectoris 08/05/2019 Primary osteoarthritis of right ankle 07/03/2018 Personal history of malignant neoplasm of prosta te 01/01/2018 PHYLLIS (obstructive sleep apnea) 06/10/2017 S/P coronary artery stent placement 10/30/2016 Thoracic aortic aneurysm 03/08/2015 Atherosclerosis of [place] co ronary artery without angina pectoris [...] 06/07/2023 2:32 PM EST Sent patient a Iterasi message to make aware. ----- Message from [...] 8:00 AM EST PulmDiagnostic Pulmonary Function Lab, [facility] [address] [facility] [place] [address] [address], [address] [facility] [place] [address] 12/04/2023 8:20 AM EDT Office Visit [facility] [address] [place] [phone] Kamari Betancourt MD [address] [place] [facility] [place] [address] 01/07/2024 9:00 AM EDT Office Visit [facility] [address] [place] [address] Tiffany Jefferson CRNP [address] [place] [address] Health Maintenance Due Date Last Done Comments CKD PHOS USE SMARTSET 02220 08/13/2021 08/13/2020 Depression Screening 01/04/2022 01/04/2021 COVID-19 Vaccine ( season) 2023 08/22/2020, 07/25/2020 GFR 12/05/2023 06/06/2023, 04/23, 04/17/2023, Additional history exists Albumin/Creatinine Ratio 05/20/2024 023, 11/27/2022, 06/05/2022, Additional history exists CKD HGB USE SMARTSET 64165 05/20/202405/20, 04/17/2023, 04/17/2023, Additional history exists O2 [...] the patient have Health Care Power of Juice Packaging Machines Setter? No Care Teams Night Clerk Auditor Relationship Specialty Start Date End Date Kamari Betancourt MD [address] [place] [address] PCP - General Family Medicine 10/09/13 documented as of this encounter
--- OUTSIDE RECORDS SUMMARY | 2023-08-02 07:31 | External Medical Summary ---
Author Name Unknown Address Unknown Organization K01:[facility] [place] - [address] [place] [address] Laboratory Report Ordering Provider Test Date Status CLAUDIA CAR 06/06/2023 14:37:22 Final Exclude Heart Failure: <300 pg/mL
Diagnose Heart Failure:
Age <50 yr: >450 pg/mL
50-75 yr: >900 pg/mL
>75 yr: >1800 pg/mL
GFR is 30-59 mL/min: >1200 pg/mL or Age- adjusted values
GFR <30 mL/min: do not use, not reliable

Prognostic threshold: 1000 pg/mL Observation Date Value Abnormality Reference (Units ) Status BNP, Pro-hormone 06/06/2023 14:37:22 2894 Above high no rmal <300 (pg/mL) Final Performing Location [facility] [place] - [address] [place] [address]
--- OUTSIDE RECORDS SUMMARY | 2023-08-02 07:31 | External Medical Summary | Summary of Care ---
Author Name Unknown Organization [facility] Address [address] [facility] [place] [address] Phone [phone] Care Team Providers Care Forging Machine Hand Name Role Phone Kamari Betancourt MD Primary Care Provider [phone] Reason for Visit * Reason Comments Follow Up 6 week follow up. Ec ho 05/01/23. Still tired-worse when active or carrying times. Aches and pain. Chest pain with exertion but subsides when resting. YBARRA- 8 to steps. Edema no worse then prior. Denies dizziness and palpitations. 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 14 Tab 0 06/05/2016 Active Diclofenac Sodium (VOLTAREN) 1 % gelIndications:Prim [...] mouth daily. 90 Tab 3 12/17/2018 Active HYDROcodone-Acetami nophen 7.5-325 MG Oral TabletIndications:C hest pain on breathing Take 1 Tab by mouth every 8 hours as needed for Pain, Severe. 30 Tab 0 08/19/2020 Active Additional Information Patient not taking.Reported on 04/17/2023 Nitroglycerin 0.4 MG Sublingual Tablet Sublingual (Nitrostat)Indicati ons:Atherosclerosis of keween[place] coronary artery of keween[place] heart without angina pectoris Place 1 Tab [...] 09/05/2022 Active Furosemide 20 MG Oral Tablet (Lasix)Indications: Essential hypertension TAKE 1 TABLET BY MOUTH ONCE DAILY on Saturday, Saturday and Saturday or as needed 30 Tablet 3 01/16/2023 Active Isosorbide Dinitrate 20 MG Oral Tablet (Isordil)Indication s:Primary hypertension,Yuen ry artery disease of keween[place] artery of keween[place] heart with stable angina pectoris (HCC),S/P coronary artery stent placement Take 2 Tablets by mouth in the morning and 2 Tablets at noon and 2 Tablets in the evening. 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 540 Tablet 3 03/30/2022 3 Discontinu ed(Refill) Saccharomyces boulardii 250 MG Oral Capsule (Florastor)Indicati ons:Antibiotic causing adverse effect Take 1 Capsule by mouth in the morning and 1 Capsule before bedtime. 60 Capsule 3 09/05/2022 3 Discontinu ed(Medicat ion List Clean Up) Hospital, Clinic, or Other Facility Administered Medication [...] artery disease of n ative artery of keweenaw heart with stable angina pectoris 08/05/2019 Primary osteoarthritis of right ankle 07/03/2018 Personal history of malignant neoplasm of prosta te 01/01/2018 PHYLLIS (obstructive sleep apnea) 06/10/2017 S/P coronary artery stent placement 10/30/2016 Thoracic aortic aneurysm 03/08/2015 Atherosclerosis of ke[place] co ronary artery without angina pectoris Hyperlipidemia [...] Sign Reading Time Taken Comments Blood Pressure 144/78 06/06/2023 1:50 PM EST Pulse 72 06/06/2023 1:50 PM EST Temperature - - Respiratory Rate 16 06/06/2023 1:50 PM EST Oxygen Saturation 95% 06/06/2023 1:50 PM EST Inhaled Oxygen Concentration - - Weight 94.3 kg (208 lb) 06/06/2023 1:50 PM EST Height - - Body Mass Index 34.61 01/03/2023 9:43 AM EDT documented in this encounter Patient Instructions * Patient Instructions* Taylor Laruen PA-C - 06/06/2023 2:24 PM EST Change isosorbide to 20 mg - 2 tablets in the morning, 2 tablets at noon and 2 tablets in the earlyevening Blood work today documented in this encounter Progress Notes * Taylor Lauren PA-C - 06/06/2023 1:56 PM EST 06/06/2023 Cardiology F/U: HPI: Patient is an 82-year-old male here today for close cardiology follow-up. Last clinic evaluation approximately [address] Guzman. History includes: CAD S/P remote CABG, with most recent cath in 2021 demonstrating patent grafts. Unable to cannulateIMA graft. Medical management recommended HFpEF LBBB SVT S/P ablation Hypertension Dyslipidemia Pulm nodules PHYLLIS with CPAP Patient presents today with reports/complaints of ongoing dyspnea with minimal activity. He also reports SOB at rest when he tries to recline, +orthopnea. No exertional chest pain. No dizziness. Mildedema noted on right ankle/pretibial region. No sudden weight gain. No fever, cough, chills. He was not taking furosemide as prescribed and last visit this was resumed 20 mg 3 days per week. Patient is down about 10 lbs since last visit. Unfortunately despite resuming furosemide and weight loss he continues to report symptoms of SOB/dyspnea. He wears CPAP every night. BP has been borderline elevated at times. He had recent echo which revealed preserved LVEF with grade II diastolic dysfunction. Review of Systems: See HPI for pertinent positives. All others negative, other than those noted in HPI. No chest pain, shortness of breath, palpitations, dizziness, syncope or near syncope. No orthopnea,PND, or increased lower extremity edema. No fever, chills, cough, hematochezia, melena, or hemoptysis. 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) I25.118 Chronic diastolic heart failure ([facility]) I50.32 Obstructive lung disease ([facility]) J44.9 History of right nephrectomy Z90.5 Chronic kidney disease, stage 3a ([facility]) N18.31 Generalized osteoarthritis of multiple sites M15.9 Past Surgical History: Procedure Laterality Date ARTHROPLASTY KNEE TIBIAL PLATEAU Bilateral - [place] CABG, ARTERY-VEIN, FIVE 2005 [facility] CARDIAC ANGIOPLASTY, PERCUTANEOUS, 1 ARTERY Right 10/23/2016 [facility]CA, CARDIAC ANGIOPLASTY, PERCUTANEOUS, 1 ARTERY performed by Srikanth Kaminski MD at [facility] CARPAL TUNNEL SURGERY Bilateral MISCELLANEOUS ORDER ([facility] [...] 5 BiPAP every night at bedtime . Isosorbide Dinitrate 20 MG Oral Tablet (Isordil) Take by mouth 3 Tablets in the morning AND 3 Tablets before bedtime. 540 Tablet 3 Ranolazine ER 500 MG Oral Tablet Extended Release 12 Hour (Ranexa) Take 1 Tablet by mouth in the morning and 1 Tablet before bedtime. 60 Tablet 11 Amoxicillin-Pot Clavulanate 500-125 MG Oral Tablet Take 1 Tablet by mouth in the morning and 1 Tablet in the evening. Probiotic (Lactobacillus) Oral Capsule Take 1 Capsule by mouth in the morning and 1 Capsule before bedtime. 60 Capsule 1 Furosemide 20 MG Oral Tablet (Lasix) TAKE 1 TABLET BY MOUTH ONCE DAILY on Saturday, Saturday and Saturday or as needed 30 Tablet 3 ONE-A-DAY MENS PO TABS 1 TABLET DAILY [...] HOUR prior to dentalappointment 12 Capsule 1 Current Facility-Administered Medications Medication Dose Route Frequency Provider Last Rate Last Admin Albuterol Sulfate (Proventil) (2.5 MG/3ML) 0.083% inhalation solution 2.5 mg 2.5 mg Nebulizer Once PRN Kamari Betancourt MD PHYSICAL EXAMINATION BP 144/78 | Pulse 72 | Resp 16 | Wt 94.3 kg (208 lb) | SpO2 95% | BMI 34.61 kg/m | BSA 2.08 m Body mass index is 34.61 kg/m. Wt Readings from Last 3 Encounters: 06/06/23 94.3 kg (208 lb) 06/05/23 94.3 kg (208 lb) 04/17/23 98.9 kg (218 lb) BP Readings from Last 4 Encounters: 06/06/23 144/78 06/05/23 144/80 04/17/23 126/74 01/16/23 148/80 General: no acute distress and stated age Head: normocephalic, no masses, lesions, tenderness or abnormalities Eyes: conjunctiva are pink and non-injected, sclera clear Neck: supple, no adenopathy, no bruits, normal jugular venous pulse, no hepatojugular reflux Chest: normal shape and normal respiratory effort Lungs: decreased breath sounds Cardiac Exam: regular rate & rhythm, no murmurs gallops or rubs - normal S1, normal S2 Pulses: 2(+) throughout Abdomen: abdomen soft, non-tender, no abnormal masses and no hepatosplenomegaly Musculoskeletal: no gait disturbance, no joint inflammation, no deforming arthritis Extremities: no edema and no cyanosis Neuro: grossly normal exam Cardiac studies/labs: EKG performed today and reviewed personally: Sinus rhythm with Blocked Premature atrial complexes Intraventricular conduction delay consistent with LBBB Left ventricular hypertrophy with secondary QRS widening and repolarization abnormality Echo report reviewed dated Apr 2023: Interpretation Summary The examination is adequate to evaluate the referral indication. There was sinus bradycardia with an IVCD during the examination. The LV wall thickness is moderately increased (concentric). There is a moderate sized inferior and posterior wall motion abnormality with mild hypokinesis to hypokinesis of the segments. The qualitative LV ejection fraction is 50-54% (normal). The right ventricle is inadequately visualized, but appears grossly normal in size and function. The left atrium is mildly enlarged. The left ventricular diastolic function is moderately abnormal (grade II). There is no evidence of pulmonary hypertension. The left ventricular wall motion and LV systolic function are relatively unchanged compared to the previous study dated 12/01/2021. Grade II diastolic dysfunction is now noted. Latest Reference Range & Units 05/20/23 00:00 TRIGLYCERIDES-OUTSIDE LAB <=150 MG/DL 97 (E) CHOLESTEROL-Outside Lab <=200 MG/DL 110 (E) HDL-OUTSIDE LAB 40 - 60 MG/DL 28.9 ! (E) LDL (CALCULATED)-OUTSIDE LAB 5 - 100 MG/DL 62 (E) !: Data is abnormal (E): External lab result Latest Reference Range & Units 05/20/23 00:00 POTASSIUM-OUTSIDE LAB 3.6 - 5.1 MMOL/L 4.1 (E) CREATININE-OUTSIDE LAB 0.6 - 1.5 MG/DL 1.2 (E) EGFR-OUTSIDE LAB ML/MIN 61.3 (E) GLUCOSE-OUTSIDE LAB 70 - 99 MG/DL 97 (E) (E): External lab result Impression: 82 year old male 1. Coronary artery disease status post bypass grafting surgery x5 with follow-up PCI to the natives, third marginal, proximal RCA, distal RCA, and first RPL, October 2016. Repeat cath in 2021 with ongoing medical management recommended VS consider cardiac CT for evaluation of REFUGIO graft? 2. history of chronic HFpEF - grade II diastolic dysfunction noted. Possibly contributing to dyspnea. 3. History of chronic stable angina. 4. GERD. 5. History of left bundle branch block. 6. History of asymptomatic Mob[place] 1. 7. History of SVT status post ablation. 8. Hypertension. 9. Dyslipidemia. 10. Slight enlargement of the ascending aorta measuring 4.1 cm 11. History of pulm nodules - no recent evaluation? Plan: Patient presenting today with ongoing complaints of dyspnea and orthopnea, possibly consistent withacute on chronic HFpEF. Chest xray ordered by PCP Recommend BNP and BMP. Consider titration of furosemide to aid with symptoms if evidence of fluid retention. Currently he does not examine as overtly volume overloaded but does have mild edema. In the meantime, will titrate isosorbide to 40 mg 3 times per day to aid with underlying angina andHTN. Consider use of hydralazine. Consider titration of metoprolol. He has upcoming PFT's. May need to consider 6 min walk Also consider chest CT given history of pulm nodules. Last evaluation in 2020? Further recommendations pending review of above test results and response to medication therapies. Patient and son in law in agreement with plan. I spent a total of 40 minutes on the date of service in preparation, delivery, and documentation ofthe care provided to Román Fry excluding any time spent in the performance of separately billed services. The patient agrees to the above plan and will call with additional questions or concerns. ER with all emergencies advised. Follow-up: Return in about 3 months (around 09/06/2023). | Check-out note: Blood work today 6-8 week f/u with Megan Lauren PA-C Department of Cardiology This chart was completed in part utilizing [employer] Speech Voice Recognition Software. Grammatical errors, random word insertions, prounoun errors, and incomplete sentences are an occasional consequence of this system due to software limitations, ambient noise, and hardware issues. Any formal questions or concerns about the content, text, or information contained within the body of this dictation should be directly addressed to the provider for clarification. documented in this encounter Procedure Notes * Robert Guzman DO - 06/06/2023 1:38 PM ESTAssociated Order(s): EKG REASON FOR STUDY: HTN CONCLUSIONS: Sinus rhythm with Blocked Premature atrial complexes Left axis deviation Left ventricular hypertrophy with secondary QRS widening and repolarization abnormality Abnormal ECG When compared with ECG of 24-NOV-2021 10:45, Left bundle branch block is no longer Present Ventricular Rate: 71 Atrial Rate: 71 WA Interval: 174 QRS Duration: 130 QT/QTc: 414/449 ms P-R-T [place]: 34 : -72 : 94 degrees documented in this encounter Nursing Notes * Jordan Quezada LPN - 06/06/2023 1:49 PM EST Patient identified by full name and date of Chief Complaint Patient presents with Follow Up 6 week follow up. Echo 05/01/23. Still tired-worse when active or carrying times. Aches and pain. Chest pain with exertion but subsides when resting. YBARRA- 8 to steps. Edema no worse then prior. Denies dizziness and palpitations. Examination Room: 6 Name: Román Fry Date of : (1940). Reason for Visit: 6 week follow up Interim Hospitalization(s): Denies Problems/Concerns: See chief complaint Chest Pain/SOB: See chief complaint [facility] Discussed: Not applicable [facility] is a way you can talk to [...] 8:00 AM EST PulmDiagnostic Pulmonary Function Lab, [facility] [address] [place] [address] [place], [address] [place] [address] 12/04/2023 8:20 AM EDT Office Visit [facility] [address] [place] [address] Kamari Betancourt MD [address] [place] [address] 01/07/2024 9:00 AM EDT Office Visit [facility] [address] [facility] [place] [id number] Tiffany Jefferson CRNP [address] [facility] [place] [address] Pending Results Name Type Priority Associated Diagnoses Date /Time BASIC METABOLIC PANEL Lab Routine HTN (hypertension) Chronic heart failure with preserved ejection fraction (HFpEF) ([facility]) 06/06/2023 2:37 PM EST BNP, NT-PRO Lab Routine HTN (hypertension) Chronic heart failure with preserved ejection fraction (HFpEF) ([facility]) 06/06/2023 2:37 PM EST Scheduled Orders Name Type Priority Associated Diagnoses Orde r Schedule BASIC METABOLIC PANEL Lab Routine Primary hypertension Chronic heart failure with preserved ejection fraction (HFpEF) (HCC) Expected: 06/06/2023, Expires: 06/06/2024 BNP, NT-PRO Lab Routine Primary hypertension Chronic heart failure with preserved ejection fraction (HFpEF) (HCC) Expected: 06/06/2023, Expires: 06/06/2024 Health Maintenance Due Date Last Done Comments CKD PHOS USE SMARTSET 50257 08/13/2021 08/13/2020 Depression Screening 01/04/2022 01/04/2021 COVID-19 Vaccine ( season) 2023 08/22/2020, 07/25/2020 GFR 11/19/2023 05/20/2023, 03/23, 11/27/2022, Additional history exists O2 ASSESSMENT COMPLETED IN PAST YEAR FOR COPD 01/04/2024 01/03/2023 Albumin/Creatinine Ratio 05/20/2024 023, 11/27/2022, 06/05/2022, Additional history exists CKD HGB USE SMARTSET 12762 05/20/202405/20, 04/17/2023, 04/17/2023, Additional history exists DTaP,Tdap,and [...] Procedure Name Priority Date/Time Associated Diagnosis Comments WA ECG ROUTINE ECG W/LEAST 12 LDS W/I&R Routine 06/06/2023 1:38 PM EST Essential hypertension documented in this encounter Results * EKG (06/06/2023 1:38 PM EST) 06/06/2023 1:38 PM EST Narrative Procedure Note Megan Robert Saenz, DO - 06/06/2023 1:38 PM EST REASON FOR STUDY: HTN CONCLUSIONS: Sinus rhythm with Blocked Premature atrial complexes Left axis deviation Left ventricular hypertrophy with secondary QRS widening andrepolarization abnormality Abnormal ECG When compared with ECG of 24-NOV-2021 10:45, Left bundle branch block is no longer Present Ventricular Rate: 71 Atrial Rate: 71 WA Interval: 174 QRS Duration: 130 QT/QTc: 414/449 ms P-R-T [place]: 34 : -72 : 94 degrees Taylor Lauren PA-C EKG [facility] documented in this encounter Visit Diagnoses Diagnosis Chronic heart failure with preserved ejection fraction (HFpEF) (HCC)- Primary Primary hypertension Unspecified essential hypertension Essential hypertension Unspecified essential hypertension 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 No Care Teams Forging Machine Hand Relationship Specialty Start Date End Date Kamari Betancourt MD [address] [place] [address] PCP - General Family Medicine 10/09/13 documented as of this encounter"
--- OUTSIDE RECORDS SUMMARY | 2023-08-02 07:31 | External Medical Summary ---
Author Name Unknown Address Unknown Organization [id number] [address] [place] [id number] Laboratory Report Ordering Provider Test Date Status CLAUDIA CAR 06/06/2023 14:37:22 Final Observation Date Value Abnormality Reference (Units ) Status BUN 06/06/2023 14:37:22 33 Above high normal 6-20 (mg/dL) Final Creatinine 06/06/2023 14:37:22 1.3 Above high normal 0.6-1.2 (mg/dL) Final Glomerular filtration rate/1.73 sq M.predicted [Volume Rate/Area] in Serum, Plasma or Blood by Creatinine-based formula (CKD-EPI) 06/06/2023 14:37:22 54 Below low normal >=60 (mL/min) Final eGFR is calculated based on the CKD-EPI 2020 equation SODIUM 06/06/2023 14:37:22 142 135-146 (m mol/L) Final Potassium 06/06/2023 14:37:22 4.5 3.5-5.1 (m mol/L) Final Cl 06/06/2023 14:37:22 105 98-107 (mm ol/L) Final CO2 06/06/2023 14:37:22 26 22-32 (mmo l/L) Final Anion gap 06/06/2023 14:37:22 11 7-15 (mmol /L) Final Glucose 06/06/2023 14:37:22 93 70-120 (mg /dL) Final Calcium 06/06/2023 14:37:22 9.7 8.4-10.2 ( mg/dL) Final Performing Location [facility] [address] [place] [id number]
[2023-08-02] MEDS ORDERED: ACETAMINOPHEN 325 MG TAB PO PRN (07:32)
--- OUTSIDE RECORDS SUMMARY | 2023-08-02 07:32 | External Medical Summary ---
Author Name Unknown Address Unknown Organization [id number] [address] [place] [address] Laboratory Report Ordering Provider Test Date Status HAMZAH UNDERWOOD 04/17/2023 11:12:54 Final Observation Date Value Abnormality Reference (Units ) Status WBC, Total 04/17/2023 11:12:54 7.29 4.00-10.8 0 (K/uL) Final RBC 04/17/2023 11:12:54 4.29 4.50-5.25 (M/uL) Final Hemoglobin 04/17/2023 11:12:54 13.5 Below low normal 14 .0-16.8 (g/dL) Final HCT 04/17/2023 11:12:54 40.6 40.0-48.4 (%) Final MCV 04/17/2023 11:12:54 94.6 82.0-99.5 (fL) Final MCH 04/17/2023 11:12:54 31.5 27.0-34.0 (pg) Final MCHC 04/17/2023 11:12:54 33.3 32.0-36.0 (g/dL) Final RDW 04/17/2023 11:12:54 13.2 11.5-15.5 (%) Final Platelets 04/17/2023 11:12:54 150 140-400 (K /uL) Final MPV 04/17/2023 11:12:54 10.1 6.6-11.1 ( fL) Final Performing Location [facility] [address] [place] [id number]
--- OUTSIDE RECORDS SUMMARY | 2023-08-02 07:32 | External Medical Summary ---
Author Name Unknown Address Unknown Organization [facility] [address] [place] [address] Laboratory Report Ordering Provider Test Date Status HAMZAH UNDERWOOD 04/17/2023 11:12:54 Final Observation Date Value Abnormality Reference (Units ) Status BUN 04/17/2023 11:12:54 29 Above high normal 6-20 (mg/dL) Final Creatinine 04/17/2023 11:12:54 1.3 Above high normal 0.6-1.2 (mg/dL) Final Glomerular filtration rate/1.73 sq M.predicted [Volume Rate/Area] in Serum, Plasma or Blood by Creatinine-based formula (CKD-EPI) 04/17/2023 11:12:54 56 Below low normal >=60 (mL/min) Final eGFR is calculated based on the CKD-EPI 2020 equation SODIUM 04/17/2023 11:12:54 144 135-146 (m mol/L) Final Potassium 04/17/2023 11:12:54 4.3 3.5-5.1 (m mol/L) Final Cl 04/17/2023 11:12:54 106 98-107 (mm ol/L) Final CO2 04/17/2023 11:12:54 26 22-32 (mmo l/L) Final Anion gap 04/17/2023 11:12:54 12 7-15 (mmol /L) Final Glucose 04/17/2023 11:12:54 86 70-120 (mg /dL) Final Albumin 04/17/2023 11:12:54 4.2 3.8-5.0 (g /dL) Final AST (Aspartate aminotransferase) 04/17/2023 11:12:54 22 10-50 (U/L) Fin al Alk Phos 04/17/2023 11:12:54 134 Above high normal 35 -130 (U/L) Final Bilirubin, Total 04/17/2023 11:12:54 0.4 <=1 .2 (mg/dL) Final Calcium 04/17/2023 11:12:54 9.5 8.4-10.2 ( mg/dL) Final Protein 04/17/2023 11:12:54 6.9 6.0-8.3 (g /dL) Final ALT (Alanine aminotransferase) 04/17/2023 11:12:54 18 10-50 (U/L) Bib guaman Performing Location [facility] [place] [address] [facility] [address]
--- OUTSIDE RECORDS SUMMARY | 2023-08-02 07:32 | External Medical Summary ---
Author Name Unknown Address Unknown Organization [facility] [place] [address] [place] [address] Laboratory Report Ordering Provider Test Date Status HAMZAH UNDERWOOD 04/17/2023 11:12:54 Final Observation Date Value Abnormality Reference (Units ) Status SYNC LEUKOCYTES IN BLOOD BY AUTOMATED COUNT 04/17/2023 11:12:54 7.29 4.00-10.80 (K/uL) Final Segs 04/17/2023 11:12:54 60.0 40.0-75.0 (%) Final Lymphs % 04/17/2023 11:12:54 25.7 18.0-42.0 (%) Final Monos 04/17/2023 11:12:54 10.8 1.0-11.0 (%) Final Eosinophils 04/17/2023 11:12:54 3.2 0.0-6.0 (%) Final Basos 04/17/2023 11:12:54 0.3 0.0-2.0 (%) Final Absolute Segs 04/17/2023 11:12:54 4.38 1.80-7.70 (K/uL) Final Lymphs, absolute 04/17/2023 11:12:54 1.87 1.00-4.80 (K/ul) Final Monos, Abs 04/17/2023 11:12:54 0.79 0.00-1.10 (K/uL) Final Eos, Abs 04/17/2023 11:12:54 0.23 0.00-0.70 (K/uL) Final Basos, Abs 04/17/2023 11:12:54 0.02 0.00-0.20 (K/uL) Final Performing Location [facility] [place] [address] [place] [address]
--- OUTSIDE RECORDS SUMMARY | 2023-08-02 07:32 | External Medical Summary | Summary of Care ---
Author Name Unknown Organization [facility] Address [address] [facility] [place] [address] Phone [phone] Care Team Providers Care Table Setter Name Role Phone Kamari Betancourt MD Primary Care Provider [phone] Reason for Visit * Reason Comments Follow Up Pt present for 6 mon th follow up.No concerns. Encounter Details Date Type Department Care Team (Late st Contact Info) Description 06/05/2023 6:00 PM EST Office Visit [facility] [address] [place] [address] Kamari Betancourt MD [address] [place] [address] Dyspnea on exertion*; Chronic kidney disease, stage 3a (HCC); Chronic obstructive pulmonary disease, unspecified COPD type ([facility]) Allergies Active Allergy Reactions Criticality Noted Date Comments Bee Venom Medium 10/09/2013 Swelling documented as of this encounter (statuses as of 06/05/2023) Medications Medication Sig Dispensed Refills Start Date [...] 50 MG TabletIndications:Co ronary artery disease involving [place] heart without angina pectoris, unspecified vessel or [...] MG Sublingual Tablet Sublingual (Nitrostat)Indicatio ns:Atherosclerosis of [place] coronary artery of [place] heart without angina pectoris Place 1 Tab [...] dental appointment 12 Capsule 1 02/09/2022 Active Isosorbide Dinitrate 20 MG Oral Tablet (Isordil)Indications :Coronary artery disease of [place] artery of [place] heart with stable angina pectoris (HCC),HTN (hypertension),S/P coronary artery stent placement Take by mouth 3 Tablets in the morning AND 3 Tablets before bedtime. 540 Tablet 3 03/30/2022 Active Ranolazine ER 500 MG Oral Tablet [...] before bedtime. 60 Capsule 1 09/05/2022 Active Saccharomyces boulardii 250 MG Oral Capsule (Florastor)Indicatio ns:Antibiotic causing adverse effect Take 1 Capsule by mouth in the morning and 1 Capsule before bedtime. 60 Capsule 3 09/05/2022 Active Furosemide 20 MG Oral Tablet (Lasix)Indications:E ssential hypertension TAKE 1 TABLET BY MOUTH ONCE DAILY on Saturday, Saturday and Saturday or as needed 30 Tablet 3 01/16/2023 Active Hospital, Clinic, or Other Facility Administered Medication Ordered Dose Route Frequency Start Date End Date Status Albuterol Sulfate (Proventil) (2.5 MG/3ML) 0.083% inhalation solution 2.5 mgIndications:Dyspnea on exertion 2.5 mg NEBULIZER ONCE PRN 06/05/2023 06/04/2024 Active documented as of this encounter (statuses as of 06/05/2023) Active Problems Problem Noted Date Diagnosed Date Generalized osteoarthritis of multiple sites Chronic kidney disease, stage 3a 01/03/2021 Overview: Per CKD protocol History of right nephrectomy 11/14/2020 Chronic diastolic heart failure 02/10/2020 Obstructive lung disease 02/10/2020 HTN (hypertension) 08/05/2019 Coronary artery disease of n ative artery of [place] heart with stable angina pectoris 08/05/2019 Primary osteoarthritis of right ankle 07/03/2018 Personal history of malignant neoplasm of prosta te 01/01/2018 PHYLLIS (obstructive sleep apnea) 06/10/2017 S/P coronary artery stent placement 10/30/2016 Thoracic aortic aneurysm 03/08/2015 Atherosclerosis of [place] co ronary artery without angina pectoris Hyperlipidemia with target LDL less than 70 Overview: ICD-10 update of inactive term documented as of this encounter (statuses as of 06/05/2023) Resolved Problems Problem Noted Date Diagnosed Date Resolved Date Acute conjunctivitis, bilateral 01/13/2015 02/01/2017 Chronic cough 01/13/2015 02/01/2017 Chronic rhinitis 01/13/2015 02/01/2017 Osteoarthritis 07/03/2018 Prostate cancer 01/01/2018 documented as of this encounter (statuses as of 06/05/2023) Immunizations Name Administration Dates Next Due COVID-19 [...] Hd (Fluzone Hd) 04/29/2021 Seasonal Influenza, Quadriva lent, No Preserve, IM 06/25/2016 Seasonal Influenza, Split, I IV3, With Preserve, Inj 07/08/2015 TD - Tetanus/Diptheria (ADULT) 08/02/2011 TD, Preservative Free 08/02/2011 TDAP (age 10 and older)(Boostrix) 11/13/2013 Varicella Zoster Vaccine (Adult) 10/08/2012 Zoster Vaccine [...] Sign Reading Time Taken Comments Blood Pressure 144/80 06/05/2023 5:24 PM EST Pulse 72 06/05/2023 5:24 PM EST Temperature 36.2 C (97.1 F) 06/05/2023 5:24 PM ES T Respiratory Rate 16 06/05/2023 5:24 PM EST Oxygen Saturation - - Inhaled Oxygen Concentration - - Weight 94.3 kg (208 lb) 06/05/2023 5:24 PM EST Height - - Body Mass Index 34.61 01/03/2023 9:43 AM EDT documented in this encounter Progress Notes * Kamari Betancourt MD - 06/05/2023 5:39 PM EST Subjective: Román Fry is a 82 year old male. Chief Complaint Patient presents with Follow Up Pt present for 6 month follow up. No concerns. HPI: 82-year-old seen today as a routine six-month recheck. [facility]. He has finished with Dr. Fitzgerald who did his knee replacement surgeries. Unfortunately he did not seem to recover well after the last knee replacement surgery. He did not developed postsurgical complication such as infection but rather he just feels as if he can not Um get the strength back in his legs. For that reason he Um quit his job at the [employer]. This is very understandable as that was a very physical job. Additionally he has persistent dyspnea with exertion. He is mentioned that previously. [facility] also [facility]. Recently had an echocardiogram as done per his foreclosure specialist looking for causes of his dyspnea. The echocardiogram showed grade 2 diastolic dysfunction but normal systolic function. He had pulmonary function test about 3 years ago which did notshow any obstructive changes. He really had normal PFTs. He does have follow up with cardiology. Patient Active Problem List Diagnosis Code Atherosclerosis of [place] coronary artery without angina pectoris I25.10 Hyperlipidemia with target LDL less than 70 E78.5 Thoracic aortic aneurysm (HCC) I71.20 S/P coronary artery stent placement Z95.5 PHYLLIS (obstructive sleep apnea) G47.33 Personal history of malignant neoplasm of prostate Z85.46 Primary osteoarthritis of right ankle M19.071 HTN (hypertension) I10 Coronary artery disease of [place] artery of [place] heart with stable angina pectoris (HCC) I25.118 Chronic diastolic heart failure ([facility]) I50.32 Obstructive lung disease ([facility]) J44.9 History of right nephrectomy Z90.5 Chronic kidney disease, stage 3a ([facility]) N18.31 Generalized osteoarthritis of multiple sites M15.9 Current Outpatient Medications Medication Sig Dispense Refill [...] 1 Capsule before bedtime. 60 Capsule 1 Saccharomyces boulardii 250 MG Oral Capsule (Florastor) Take 1 Capsule by mouth in the morning and 1 Capsule before bedtime. 60 Capsule 3 Furosemide 20 MG Oral Tablet (Lasix) TAKE [...] morning and 1 Tablet in the evening. Current Facility-Administered Medications Medication Dose Route Frequency Provider Last Rate Last Admin Albuterol Sulfate (Proventil) (2.5 MG/3ML) 0.083% inhalation solution 2.5 mg 2.5 mg Nebulizer Once PRN Kamari Betancourt MD Review of patient's allergies indicates: Allergen Reactions Bee Venom Swelling Objective: BP 144/80 | Pulse 72 | Temp 36.2 C (97.1 F) | Resp 16 | Wt 94.3 kg (208 lb) | BMI 34.61 kg/m | BSA 2.08 m Physical Exam: CONST: alert, pleasant, no acute distress HEAD: normocephalic, atraumatic Eyes - PERRLA, EOM'I OROPHARYNX: clear, no swelling or erythema, moist CV: regular rate and rhythm, no murmur CHEST: clear to auscultation bilaterally, no rales or wheezing ABD: soft, non tender, non distended, no masses or hepatosplenomegaly EXT: Trace bilateral ankle edema, no joint swelling or deformities, MENTAL STATUS: no evidence of thought disorder, no delusional thought, no evidence of paranoia, thought is non-tangential. SKIN: no rash or significant lesions Results for orders placed or performed in visit on 05/30/23 CHEMISTRY-OUTSIDE Result Value Ref Range Not all results display below - see scan for full detail CREATININE-OUTSIDE LAB 1.2 0.6 - 1.5 MG/DL EGFR-OUTSIDE LAB 61.3 ML/MIN POTASSIUM-OUTSIDE LAB 4.1 3.6 - 5.1 MMOL/L GLUCOSE-OUTSIDE LAB 97 70 - 99 MG/DL HOURS FASTING TRIGLYCERIDES-OUTSIDE LAB 97 <=150 MG/DL CHOLESTEROL-OUTSIDE LAB 110 <=200 MG/DL HDL-OUTSIDE LAB 28.9 (A) 40 - 60 MG/DL CHOL/HDL RATIO-OUTSIDE LAB LDL (CALCULATED)-OUTSIDE LAB 62 5 - 100 MG/DL LDL (DIRECT MEASURE)-OUTSIDE LAB HEMOGLOBIN, T9E-BSTVCET LAB 5.8 4.3 - 6.2 % PHOSPHORUS-OUTSIDE LAB PTH-OUTSIDE LAB MICROALBUMIN RATIO-OUTSIDE LAB 47.1 <=30 MG/G PROTEIN, UA-OUTSIDE LAB HEMOGLOBIN-OUTSIDE LAB 13.5 12.4 - 17.3 G/DL TSH Result Value Ref Range TSH - OUTSIDE LAB 1.80 0.45 - 5.33 UIU/ML ASSESSMENT/PLAN: Dyspnea on exertion (Primary)-etiology is unclear. May be a combination of multiple factors including age, diastolic dysfunction, mild pulmonary dysfunction. will repeat pulmonary function test in see if these have changed - SPIROMETRY B/A BRONCHODILATOR; Future; Expected date: 06/12/2023 - Albuterol Sulfate (Proventil) (2.5 MG/3ML) 0.083% inhalation solution 2.5 mg Recommend chest x-ray Chronic kidney disease, stage 3a (HCC)-this is been stable. Latest GFR actually was above 60 History prostate cancer-check chest x-ray Follow Up: Return in about 6 months (around 12/04/2023) for Return with Physician. | For: Return with Physician Kamari Betancourt MD documented in this encounter Nursing Notes * Nolvia Linares, MED ASSIST - 06/05/2023 5:24 PM EST The patient has been properly identified by confirmation of name and date of . Chief Complaint Patient presents with Follow Up Pt present for 6 month follow up. No concerns. documented in this encounter Plan of Treatment Upcoming Encounters Date Type Department Care Team (Late st Contact Info) Description 06/06/2023 2:00 PM EST Office Visit Cardiology, [facility] [address] [facility] [place] [address] [place], [place] [address] [facility] [place] [address] 06/20/2023 8:00 AM EST PulmDiagnostic Pulmonary Function Lab, [facility] [address] [facility] [place] [address] [place], [address] [address] [facility] [place] [address] 12/04/2023 8:20 AM EDT Office Visit [facility] [address] [place] [id number] Kamari Betancourt MD [address] [place] [address] 01/07/2024 9:00 AM EDT Office Visit Sleep Disorders [facility]tr [facility] [address] [facility] [place] [phone] Tifafny Jefferson CRNP [address] [facility] [place] [address] Scheduled Orders Name Type Priority Associated Diagnoses Order Schedule SPIROMETRY B/A BRONCHODILATOR Procedures Routine Dyspnea on exertion Expected: 06/12/2023, Expires: 09/05/2023 XR CHEST 2 VIEWS Medical Imaging Routine Dyspnea on exertion Expected: 06/06/2023, Expires: 07/05/2023 Health Maintenance Due Date Last Done Comments CKD PHOS USE SMARTSET 40821 08/13/2021 08/13/2020 Depression Screening 01/04/2022 01/04/2021 COVID-19 Vaccine ( season) 2023 08/22/2020, 07/25/2020 Influenza Vaccine (FLU shot) (#1) 2023 06/07/2022, 05/22/2022, 04/29/2021, Additional history exists DTaP,Tdap,and Td Vaccines (2 - Td or Tdap) 11/14/2023 11/13/2013, 08/02/2011, 08/02/2011 GFR 11/19/2023 05/20/2023, 03/23, 11/27/2022, Additional history exists O2 ASSESSMENT COMPLETED IN PAST YEAR FOR COPD 01/04/2024 01/03/2023 Albumin/Creatinine Ratio 05/20/2024 023, 11/27/2022, 06/05/2022, Additional history exists CKD HGB USE SMARTSET 73523 05/20/202405/20, 04/17/2023, 04/17/2023, Additional history exists Hepatitis B Completed 01/31/2012, 01/19, 08/30/2011, Additional history exists Pneumococcal Vaccine: 65+ Years Completed 01/28/2017, 12/07/2015, 11/13/2013 Zoster Vaccines Completed 12/17/2019, 08/22, 07/18/2019, Additional history exists GARDASIL-HPV IMMUNIZATION SERIES Aged Out No longer eligible based on patient's age to complete this topic MENINGOCOCCAL (MENACTRA/MENVEO) Aged Out No longer eligible based on patient's age to complete this topic documented as of this encounter Medical Devices Not on filedocumented as of this encounter Visit Diagnoses Diagnosis Dyspnea on exertion- Primary Other dyspnea and respiratory abnormality Chronic kidney disease, stage 3a (HCC) Chronic obstructive pulmonary disease, unspecified COPD type (HCC) documented in this encounter Advance Directives [...] the patient have Health Care Power of Telecommunications Cable Jointer? No Care Teams Table Setter Relationship Specialty Start Date End Date Kamari Betancourt MD [address] [place] [address] PCP - General Family Medicine 10/09/13 documented as of this encounter"
--- OUTSIDE RECORDS SUMMARY | 2023-08-02 07:32 | External Medical Summary | Summary of Care ---
Author Name Unknown Organization [facility] Address [address] [facility] [place] [address] Phone [phone] Care Team Providers Care Manager Integrated Name Role Phone Kamari Betancourt MD Primary Care Provider [phone] Reason for Visit * Reason Comments Outpatient Testing Encounter Details Date Type Department Care Team Description 04/17/2023 Laboratory Laboratory, [facility] [address] [facility] [place] [address] [facility] [address] [place] [address] S/P coronary artery stent placement; Essential hypertension; Chronic diastolic heart failure (HCC); Coronary artery disease of [place] artery of [place] heart with stable angina pectoris (HCC) Allergies Active Allergy Reactions Severity Noted Date Comments Bee Venom Medium 10/09/2013 Swelling documented as of this encounter (statuses as of 04/17/2023) Medications Medication Sig Dispensed Refills Start Date [...] 50 MG TabletIndications:Co ronary artery disease involving [place] heart without angina pectoris, unspecified vessel or [...] MG Sublingual Tablet Sublingual (Nitrostat)Indicatio ns:Atherosclerosis of [place] coronary artery of [place] heart without angina pectoris Place 1 Tab [...] Oral Tablet (Isordil)Indications :Coronary artery disease of [place] artery of [place] heart with stable angina pectoris (HCC),HTN (hypertension),S/P [...] as needed 30 Tablet 3 01/16/2023 Active documented as of this encounter (statuses as of 04/17/2023) Active Problems Problem Noted Date Generalized osteoarthritis of multiple s ites 11/08/2021 Chronic kidney disease, stage 3a 021 Overview: Per CKD protocol History of right nephrectomy 11/14/2020 Chronic diastolic heart failure 02/10/20 20 Obstructive lung disease 02/10/2020 HTN (hypertension) 08/05/2019 Coronary artery disease of n ative artery of [place] heart with stable angina pectoris 08/05/2019 Primary osteoarthritis of right ankle Personal history of malignant neoplasm o f prostate 01/01/2018 PHYLLIS (obstructive sleep apnea) 06/10/2017 S/P coronary artery stent placement 10/20 Thoracic aortic aneurysm 03/08/2015 Atherosclerosis of [place] coronary arter y without angina pectoris Hyperlipidemia with target LDL less than 70 Overview: ICD-10 update of inactive term documented as of this encounter (statuses as of 04/17/2023) Resolved Problems Problem Noted Date Resolved Date Acute conjunctivitis, bilateral 01/13/2015 02/01/2017 Chronic cough 01/13/2015 02/01/2017 Chronic rhinitis 01/13/2015 02/01/2017 Osteoarthritis 07/03/2018 Prostate cancer 01/01/2018 documented as of this encounter (statuses as of 04/17/2023) Immunizations Name Administration Dates Next Due COVID-19 mRNA, LNP-s, No Pre serve, 2-Dose Series (Moderna) 08/22/2020,07/25/2020 Hepatitis B, 20+ yrs 01/31/2012,08/30/2011,08/02 Pneumococcal Conjugate Vacc, 13 Valent (Prevnar) 01/28/2017,12/07/2015 Pneumococcal Polysaccharide PPV23 (Pneumovax) 11/13/2013 Season Influenza, Quad, PF, Adjuvanted, 65+ Yrs, IM (FLUAD) 04/23/2020 Seasonal Influenza Intranasal 05/31/2014, 013 Seasonal Influenza, PF, 6 mo ns & Above, IM , (Flulaval) 06/07/2022,05/22/2022,04/23/2020,05/22,05/05/2018,05/02/2017 Seasonal Influenza, Quadriva lent Hd (Fluzone [...] drink = 0.6 oz pur e alcohol) Food Insecurity Answer Date Recorded Within the past 12 months, y ou worried that your food would run out before you got money to buy more. Never true 08/05/2019 Within the past 12 months, t he food you bought just didn't last and you didn't have money to get more. Never true 08/05/2019 Sex Assigned at Date Recorded Male 12/17/2018 3:52 PM E DT Job Start Date Occupation Industry Not on file Not on file Not on file documented as of this encounter Plan of Treatment Upcoming Encounters Date Type Specialty Care Team Description 05/01/2023 Cardiac Studies Cardiac Studies 06/05/2023 Office Visit Cardiology Robert Guzman DO [address] [place] [address] 06/05/2023 Office Visit Family Medicine Kamari Betancourt MD [address] [place] [id number] 01/07/2024 Office Visit Sleep Disorders Tiffany Jefferson CRNP [address] [place] [address] Pending Results Name Type Priority Associated Diagnoses Date /Time CBC WITH WBC DIFFERENTIAL Lab Routine S/P coronary artery stent placement Essential hypertension Chronic diastolic heart failure (HCC) Coronary artery disease of [place] artery of [place] heart with stable angina pectoris (HCC) 04/17/2023 11:12 AM EDT COMPREHENSIVE METABOLIC PANEL Lab Routine S/P coronary artery stent placement Essential hypertension Chronic diastolic heart failure (HCC) Coronary artery disease of [place] artery of [place] heart with stable angina pectoris (HCC) 04/17/2023 11:12 AM EDT CBC Lab Routine S/P coronary artery stent placement Essential hypertension Chronic diastolic heart failure (HCC) Coronary artery disease of [place] artery of [place] heart with stable angina pectoris (HCC) 04/17/2023 11:12 AM EDT DIFFERENTIAL, AUTOMATED Lab Routine S/P coronary artery stent placement Essential hypertension Chronic diastolic heart failure (HCC) Coronary artery disease of [place] artery of [place] heart with stable angina pectoris (HCC) 04/17/2023 11:12 AM EDT Health Maintenance Due Date Last Done Comments COVID-19 Vaccine (3 - Moderna series) 10/17/2020 08/22/2020, 07/25/2020 CKD PHOS USE SMARTSET 95679 08/13/2021 08/13/2020 Depression Screening 01/04/2022 01/04/2021 Influenza Vaccine (FLU shot) (#1) 2023 06/07/2022, 05/22/2022, 04/29/2021, Additional history exists GFR 05/30/2023 11/27/2022, 07/22, 06/20/2022, Additional history exists DTaP,Tdap,and Td Vaccines (2 - Td or Tdap) 11/14/2023 11/13/2013, 08/02/2011, 08/02/2011 Albumin/Creatinine Ratio 11/28/2023 023, 06/05/2022, 12/01/2021, Additional history exists CKD HGB USE SMARTSET 70080 11/28/202311/27, 08/09/2022, 08/09/2022, Additional history exists O2 ASSESSMENT COMPLETED IN PAST YEAR FOR COPD 01/04/2024 01/03/2023 Hepatitis B Completed 01/31/2012, 03/2012, 08/02/2011 Pneumococcal Vaccine: 65+ Years Completed 01/28/2017, 12/07/2015, [...] as of this encounter Visit Diagnoses Diagnosis S/P coronary artery stent placement Postsurgical percutaneous transluminal coronary angioplasty status Essential hypertension Unspecified essential hypertension Chronic diastolic heart failure (HCC) Chronic diastolic heart failure Coronary artery disease of [place] artery of [place] heart with stable angina pectoris (HCC) documented in this encounter Advance Directives [...] the patient have Health Care Power of Teacher Education Director? No Care Teams Manager Integrated Relationship Specialty Start Date End Date Kamari Betancourt MD [address] [place] [address] PCP - General Family Medicine 10/09/13 documented as of this encounter
--- OUTSIDE RECORDS SUMMARY | 2023-08-02 07:32 | External Medical Summary | Summary of Care ---
Author Name Unknown Organization [facility] Address [address] [facility] [place] [address] Phone [phone] Care Team Providers Care Car Shifter Name Role Phone Kamari Betancourt MD Primary Care Provider Reason for Visit * Reason Onset Date Comments Test Results 05/03/2023 Encounter Details Date Type Department Care Team Description 05/03/2023 Telephone Cardiology, [facility] [address] [place] [address] Kamari Avila, PA-C [address] [place] [address] Test Results (/) Allergies Active Allergy Reactions Severity Noted Date Comments Bee Venom Medium 10/09/2013 Swelling documented as of this encounter (statuses as of 05/03/2023) Medications Medication Sig Dispensed Refills Start Date [...] 50 MG TabletIndications:Co ronary artery disease involving [place] heart without angina pectoris, unspecified vessel or [...] MG Sublingual Tablet Sublingual (Nitrostat)Indicatio ns:Atherosclerosis of [place] coronary artery of [place] heart without angina pectoris Place 1 Tab [...] Oral Tablet (Isordil)Indications :Coronary artery disease of [place] artery of [place] heart with stable angina pectoris (HCC),HTN (hypertension),S/P [...] as of this encounter (statuses as of 05/03/2023) Active Problems Problem Noted Date Generalized osteoarthritis of multiple s ites 11/08/2021 Chronic kidney disease, stage 3a 021 Overview: Per CKD protocol History of right nephrectomy 11/14/2020 Chronic diastolic heart failure 02/10/20 20 Obstructive lung disease 02/10/2020 HTN (hypertension) 08/05/2019 Coronary artery disease of n ative artery of [place] heart with stable angina pectoris 08/05/2019 Primary osteoarthritis of right ankle Personal history of malignant neoplasm o f prostate 01/01/2018 PHYLLIS (obstructive sleep apnea) 06/10/2017 S/P coronary artery stent placement 10/20 Thoracic aortic aneurysm 03/08/2015 Atherosclerosis of [place] coronary arter y without angina pectoris Hyperlipidemia with target LDL less than 70 Overview: ICD-10 update of inactive term documented as of this encounter (statuses as of 05/03/2023) Resolved Problems Problem Noted Date Resolved Date Acute conjunctivitis, bilateral 01/13/2015 02/01/2017 Chronic cough 01/13/2015 02/01/2017 Chronic rhinitis 01/13/2015 02/01/2017 Osteoarthritis 07/03/2018 Prostate cancer 01/01/2018 documented as of this encounter (statuses as of 05/03/2023) Immunizations Name Administration Dates Next Due COVID-19 [...] Telephone Encounter - Jordan Quezada LPN - 05/03/2023 3:38 PM EDT Called patient and left Kamari's message on an identified voicemail to make patient aware. Awaiting conformation prior to updating patient's medication list. ----- Message from Kamari Avila PA-C sent at 05/03/2023 2:40 PM EDT ----- InBasket coverage for Dr. Guzman Echo shows normal systolic function, grade II diastolic dysfunction. No evidence of pulmonary hypertension or significant valvular disease. Consider change in Isosorbide dinitrate dosing to aid dyspnea. Patient is currently listed as taking 60 mg in the morning and 60 mg at bedtime. Recommend 40 mg three times per day at 8 AM, 1 PM, 6 PM. This timing may aid dyspnea and allows for a nitrate-free period after the evening dose and beforethe morning dose to minimize risk of tolerance. documented in this encounter Plan of Treatment Upcoming Encounters Date Type Specialty Care Team Description 06/05/2023 Office Visit Family Medicine Kamari Betancourt MD [address] [place] [address] 01/07/2024 Office Visit Sleep Disorders Tiffany Jefferson CRNP [address] [place] [address] Health Maintenance Due Date Last Done Comments CKD PHOS USE SMARTSET 24604 08/13/2021 08/13/2020 Depression Screening 01/04/2022 01/04/2021 COVID-19 Vaccine ( season) 2023 08/22/2020, 07/25/2020 Influenza Vaccine (FLU shot) (#1) 2023 06/07/2022, 05/22/2022, 04/29/2021, Additional history exists GFR 10/16/2023 04/17/2023, 05/0 03/2023, 08/09/2022, Additional history exists DTaP,Tdap,and Td Vaccines (2 - Td or Tdap) 11/14/2023 11/13/2013, 08/02/2011, 08/02/2011 Albumin/Creatinine Ratio 11/28/2023 023, 06/05/2022, 12/01/2021, Additional history exists O2 ASSESSMENT COMPLETED IN PAST YEAR FOR COPD 01/04/2024 01/03/2023 CKD HGB USE SMARTSET 09988 04/17/202404/17, 04/17/2023, 11/27/2022, Additional history exists Hepatitis B Completed 01/31/2012, 03/2012, 08/02/2011 Pneumococcal [...] the patient have Health Care Power of Lecturer In Computer Science? No Care Teams Car Shifter Relationship Specialty Start Date End Date Kamari Betancourt MD [address] [place] [address] PCP - General Family Medicine 10/09/13 documented as of this encounter
--- OUTSIDE RECORDS SUMMARY | 2023-08-02 07:32 | External Medical Summary | Summary of Care ---
Author Name Unknown Organization [facility] Address [address] [facility] [place] [address] Phone [phone] Care Team Providers Care Brick Veneer Maker Name Role Phone Kamari Betancourt MD Primary Care Provider [phone] Encounter Details Date Type Department Care Team (Late st Contact Info) Description 05/30/2023 Orders Only [facility] [address] [place] [address] Kamari Betancourt MD [address] [place] [address] Allergies Active Allergy Reactions Criticality Noted Date Comments Bee Venom Medium 10/09/2013 Swelling documented as of this encounter (statuses as of 05/30/2023) Medications Medication Sig Dispensed Refills Start Date [...] 50 MG TabletIndications:Co ronary artery disease involving [place] heart without angina pectoris, unspecified vessel or [...] MG Sublingual Tablet Sublingual (Nitrostat)Indicatio ns:Atherosclerosis of [place] coronary artery of [place] heart without angina pectoris Place 1 Tab [...] Oral Tablet (Isordil)Indications :Coronary artery disease of [place] artery of [place] heart with stable angina pectoris (HCC),HTN (hypertension),S/P [...] as of this encounter (statuses as of 05/30/2023) Active Problems Problem Noted Date Diagnosed Date Generalized osteoarthritis of multiple sites Chronic kidney disease, stage 3a 01/03/2021 Overview: Per CKD protocol History of right nephrectomy 11/14/2020 Chronic diastolic heart failure 02/10/2020 Obstructive lung disease 02/10/2020 HTN (hypertension) 08/05/2019 Coronary artery disease of n ative artery of [place] heart with stable angina pectoris 08/05/2019 Primary osteoarthritis of right ankle 07/03/2018 Personal history of malignant neoplasm of prosta te 01/01/2018 PHYLLIS (obstructive sleep apnea) 06/10/2017 S/P coronary artery stent placement 10/30/2016 Thoracic aortic aneurysm 03/08/2015 Atherosclerosis of [place] co ronary artery without angina pectoris Hyperlipidemia with target LDL less than 70 Overview: ICD-10 update of inactive term documented as of this encounter (statuses as of 05/30/2023) Resolved Problems Problem Noted Date Diagnosed Date Resolved Date Acute conjunctivitis, bilateral 01/13/2015 02/01/2017 Chronic cough 01/13/2015 02/01/2017 Chronic rhinitis 01/13/2015 02/01/2017 Osteoarthritis 07/03/2018 Prostate cancer 01/01/2018 documented as of this encounter (statuses as of 05/30/2023) Immunizations Name Administration Dates Next Due COVID-19 [...] 3:52 PM EDT Sexual Orientation Straight 12/17/2018 3 :52 PM EDT Job Start Date Occupation Industry Not on file Not on file Not on file documented as of this encounter Plan of Treatment Upcoming Encounters Date Type Department Care Team (Late st Contact Info) Description 06/05/2023 6:00 PM EST [facility] [place] [address] [facility] [phone] Kamari Betancourt MD [address] [facility] [place] [address] 01/07/2024 9:00 AM EDT Office Visit Sleep Disorders [facility] [address] [place] [phone] Tiffany Jefferson CRNP [address] [place] [address] Health Maintenance Due Date Last Done Comments CKD PHOS USE SMARTSET 02643 08/13/2021 08/13/2020 Depression Screening 01/04/2022 01/04/2021 COVID-19 Vaccine ( season) 2023 08/22/2020, 07/25/2020 Influenza Vaccine (FLU shot) (#1) 2023 06/07/2022, 05/22/2022, 04/29/2021, Additional history exists GFR 10/16/2023 05/20/2023, 03/23, 11/27/2022, Additional history exists DTaP,Tdap,and Td Vaccines (2 - Td or Tdap) 11/14/2023 11/13/2013, 08/02/2011, 08/02/2011 Albumin/Creatinine Ratio 11/28/2023 023, 11/27/2022, 06/05/2022, Additional history exists O2 ASSESSMENT COMPLETED IN PAST YEAR FOR COPD 01/04/2024 01/03/2023 CKD HGB USE SMARTSET 52754 04/17/202405/20, 04/17/2023, 04/17/2023, Additional history exists Hepatitis B [...] Procedure Name Priority Date/Time Associated Diagnosis Comments CHEMISTRY-OUTSIDE Routine 05/20/2023 TSH Routine 05/20/2023 documented in this encounter Results * TSH (05/20/2023) TSH - OUTSIDE LAB 1.80 0.45 - 5.33 UIU/ML OUTSIDE LAB (SEE SCANNED REPORT) Blood Venous blood specimen / Unknown 05/20/2023 Alexa Teran PA-C LAB BLOOD MELINDA PHILLIPS OUTSIDE LAB (SEE SCANNED REPORT) * (ABNORMAL) CHEMISTRY-OUTSIDE (05/20/2023) Not all results display below - see scan for full detail OUTSIDE LAB (SEE SCANNED REPORT) Comment:SCAN INCLUDES - CBCD , ALB/CREAT, CMP, LP, TSH, A1C, VIT D, FOLATE, VIT B12 CREATININE-OUTSID E LAB 1.2 0.6 - 1.5 MG/DL OUTSIDE LAB (SEE SCANNED REPORT) EGFR-OUTSIDE LAB 61.3 ML/MIN OUT SIDE LAB (SEE SCANNED REPORT) POTASSIUM-OUTSIDE LAB 4.1 3.6 - 5.1 MMOL/L OUTSIDE LAB (SEE SCANNED REPORT) GLUCOSE-OUTSIDE LAB 97 70 - 99 MG/DL OUTSIDE LAB (SEE SCANNED REPORT) HOURS FASTING OUTSID E LAB (SEE SCANNED REPORT) TRIGLYCERIDES-OUT SIDE LAB 97 <=150 MG/DL OUTSIDE LAB (SEE SCANNED REPORT) CHOLESTEROL-OUTSI DE LAB 110 <=200 MG/DL OUTSIDE LAB (SEE SCANNED REPORT) HDL-OUTSIDE LAB 28.9(A) 40 - 60 MG/DL OUTSIDE LAB (SEE SCANNED REPORT) CHOL/HDL RATIO-OUTSIDE LAB OUTSIDE LA B (SEE SCANNED REPORT) LDL (CALCULATED)-OUTS MARLY LAB 62 5 - 100 MG/DL OUTSIDE LAB (SEE SCANNED REPORT) LDL (DIRECT MEASURE)-OUTSIDE LAB OUTSIDE LAB (SEE SCANNED REPORT) HEMOGLOBIN, Y1V-MYIUQTY LAB 5.8 4.3 - 6.2 % OUTSIDE LAB (SEE SCANNED REPORT) PHOSPHORUS-OUTSID E LAB OUTSIDE LAB (SEE SCANNED REPORT) PTH-OUTSIDE LAB OUTS MARLY LAB (SEE SCANNED REPORT) MICROALBUMIN RATIO-OUTSIDE LAB 47.1 <=30 MG/G OUTSIDE LA B (SEE SCANNED REPORT) PROTEIN, UA-OUTSIDE LAB OUTSIDE LAB (SEE SCANNED REPORT) HEMOGLOBIN-OUTSID E LAB 13.5 12.4 - 17.3 G/DL OUTSIDE LAB (SEE SCANNED REPORT) 05/20/2023 Alexa Teran PA-C LABORATORY OUTSIDE LAB (SEE SCANNED REPORT) documented in this encounter Advance Directives Latest [...] the patient have Health Care Power of Asset Protection Manager? No Care Teams Brick Veneer Maker Relationship Specialty Start Date End Date Kamari Betancourt MD [address] [facility] [place] [address] PCP - General Family Medicine 10/09/13 documented as of this encounter
--- OUTSIDE RECORDS SUMMARY | 2023-08-02 07:32 | External Medical Summary | Summary of Care ---
Author Name Unknown Organization [facility] Address [address] [facility] [place] [address] Phone [phone] Care Team Providers Care Straw Hat Machine Operator Name Role Phone Kamari Betancourt MD Primary Care Provider [phone] Reason for Visit * Reason Onset Date Comments Sleep Apnea Device 01/03/2023 download Encounter Details Date Type Department Care Team Description 01/03/2023 Telephone Sleep Disorders [facility]tr [facility] [address] [place] [address] Tiffany Jefferson CRNP [address] [place] [address] Sleep Apnea Device (download) Allergies Active Allergy Reactions Severity Noted Date Comments Bee Venom Medium 10/09/2013 Swelling documented as of this encounter (statuses as of 03/05/2023) Medications Medication Sig Dispensed Refills Start Date [...] 50 MG TabletIndications:Co ronary artery disease involving [place] heart without angina pectoris, unspecified vessel or lesion type Take 1 Tab by mouth 2 times a day. 14 Tab 0 06/05/2016 Active Diclofenac Sodium (VOLTAREN) 1 % gelIndications:Prima ry osteoarthritis involving multiple joints Place 2 g topically on the skin 4 times a day as needed for Pain, Moderate. To affected area as directed. 100 g 5 07/02/2017 Active atorvaSTATin (LIPITOR) 20 MG TabletIndications:Hy perlipidemia with target LDL less than 70 Take 1 Tab by mouth daily. 90 Tab 3 12/17/2018 Active HYDROcodone-Acetamin ophen 7.5-325 MG Oral TabletIndications:Ch est pain on breathing Take 1 Tab by mouth every 8 hours as needed for Pain, Severe. 30 Tab 0 08/19/2020 Active Nitroglycerin 0.4 MG Sublingual Tablet Sublingual (Nitrostat)Indicatio ns:Atherosclerosis of [place] coronary artery of [place] heart without angina pectoris Place 1 Tab under the tongue every 5 minutes as needed for Pain, Chest. 75 Tab 1 09/29/2020 Active traMADol HCl 50 MG Oral Tablet (Ultram)Indications: Post-op pain Take 1 Tab by mouth every 4 hours as needed for Pain, Moderate. 30 Tab 0 11/07/2020 Active Dutasteride 0.5 MG Oral Capsule (Avodart) Take [...] Oral Tablet (Isordil)Indications :Coronary artery disease of [place] artery of [place] heart with stable angina pectoris (HCC),HTN (hypertension),S/P [...] before bedtime. 60 Capsule 3 09/05/2022 Active documented as of this encounter (statuses as of 03/05/2023) Active Problems Problem Noted Date Generalized osteoarthritis of multiple s ites 11/08/2021 Chronic kidney disease, stage 3a 021 Overview: Per CKD protocol History of right nephrectomy 11/14/2020 Chronic diastolic heart failure 02/10/20 Obstructive lung disease 02/10/2020 HTN (hypertension) 08/05/2019 Coronary artery disease of n ative artery of [place] heart with stable angina pectoris 08/05/2019 Primary osteoarthritis of right ankle Personal history of malignant neoplasm o f prostate 01/01/2018 PHYLLIS (obstructive sleep apnea) 06/10/2017 S/P coronary artery stent placement 10/20 Thoracic aortic aneurysm 03/08/2015 Atherosclerosis of [place] coronary arter y without angina pectoris Hyperlipidemia with target LDL less than 70 Overview: ICD-10 update of inactive term documented as of this encounter (statuses as of 03/05/2023) Resolved Problems Problem Noted Date Resolved Date Acute conjunctivitis, bilateral 01/13/2015 02/01/2017 Chronic cough 01/13/2015 02/01/2017 Chronic rhinitis 01/13/2015 02/01/2017 Osteoarthritis 07/03/2018 Prostate cancer 01/01/2018 documented as of this encounter (statuses as of 03/05/2023) Immunizations Name Administration Dates Next Due COVID-19 mRNA, LNP-s, No Pre serve, 2-Dose Series (Moderna) 08/22/2020,07/25/2020 Hepatitis B, 20+ yrs 01/31/2012,08/30/2011,08/02 Pneumococcal Conjugate Vacc, 13 Valent (Prevnar) 01/28/2017,12/07/2015 Pneumococcal Polysaccharide PPV23 (Pneumovax) 11/13/2013 Seasonal Influenza Intranasal 05/31/2014, 013 Seasonal Influenza, Quadriva lent Hd (Fluzone Hd) 04/29/2021 Seasonal Influenza, Quadriva lent, No Preserve, 6 Mons & Above, IM 06/07/2022,05/22/2022,04/23/2020,05/22,05/05/2018,05/02/2017 Seasonal Influenza, Quadriva lent, No Preserve, Adjuvanted, 65+ Yrs, IM 04/23/2020 Seasonal Influenza, Quadriva lent, No Preserve, IM [...] encounter Miscellaneous Notes * Telephone Encounter - DENICE Campbell - 03/05/2023 8:31 AM EDT Noted. * Telephone Encounter - Sherin Cassidy LPN - 02/26/2023 4:04 PM EDT I called the pt, who says he got a new mask "about two weeks ago," and that he is doing much better. He feels as if he is leaking much less air, and even his feels as if it's quieter. * Telephone Encounter - DENICE Campbell - 02/06/2023 5:16 PM EDT Download reviewed confirming very high mask leak. Has he received the mask replacement (low lying full face mask ) from [facility] yet? Please ask him to let us know if the mask fit is still an issue. If it is, a PAP-NAP study can be ordered at [facility] for the respiratory therapists to work with him on finding a better fitting mask. * Telephone Encounter - Sherin Cassidy LPN - 02/06/2023 11:59 AM EDT DL obtained and given to provider for her review. * Telephone Encounter - Isabell Chadn LPN - 01/03/2023 12:40 PM EDT Email sent to [facility] for the DL * Telephone Encounter - DENICE Campbell - 01/03/2023 10:26 AM EDT Patient seen in clinic today - download requested from [employer]. He's on a new device. He thinks it is a ResMed. Await download. documented in this encounter Plan of Treatment Upcoming Encounters Date Type Specialty Care Team Description 03/20/2023 Office Visit Family Medicine Kamari Betancourt [place] [address] 04/17/2023 Office Visit Cardiology Robert Guzman, [address] [place] [address] 01/07/2024 Office Visit Sleep Disorders Tiffany Jefferson CRNP [address] [place] [address] Health Maintenance Due Date Last Done Comments COVID-19 Vaccine (3 - Moderna series) 10/17/2020 08/22/2020, 07/25/2020 CKD PHOS USE SMARTSET 58374 08/13/2021 08/13/2020 Depression Screening, Annual for Pts 12 and Over 01/04/2022 01/04/2021 Influenza Vaccine (FLU shot) (#1) 2023 06/07/2022, 05/22/2022, 04/29/2021, Additional history exists GFR 05/30/2023 11/27/2022, 07/22, 06/20/2022, Additional history exists DTaP,Tdap,and Td Vaccines (2 - Td or Tdap) 11/14/2023 11/13/2013, 08/02/2011, 08/02/2011 Albumin/Creatinine Ratio 11/28/2023 023, 06/05/2022, 12/01/2021, Additional history exists CKD HGB USE SMARTSET 86988 11/28/202311/27, 08/09/2022, 08/09/2022, Additional history exists O2 [...] the patient have Health Care Power of Ton Container Shipper? No Care Teams Straw Hat Machine Operator Relationship Specialty Start Date End Date Kamari Betancourt MD [address] [place], [place] [id number] PCP - General Family Medicine 10/09/13 documented as of this encounter
--- OUTSIDE RECORDS SUMMARY | 2023-08-02 07:32 | External Medical Summary | Summary of Care ---
Author Name Unknown Organization [facility] Address [address] [place] [address] Phone [phone] Care Team Providers Care Feather Baler Name Role Phone Kamari Betancourt MD Primary Care Provider [phone] Reason for Referral * Precert (Within 10 days (routine)) - Authorized Specialty Diagnoses / Procedures Referred By Contac t Referred To Contact Cardiac Studies Diagnoses S/P coronary artery stent placement Essential hypertension Chronic diastolic heart failure (HCC) Coronary artery disease of pauma artery of pauma heart with stable angina pectoris (HCC) Procedures ECHO, COMPLETE (2D), TRANS-THORACIC Robert Guzman DO [address] [place] [id number] Referral ID Status Reason Start Date Expiration Date V isits Requested Visits Authorized [id number] Authorized Precert 04/17/2023 999 999 Reason for Visit * Reason Comments Follow Up Encounter Details Date Type Department Care Team Description 04/17/2023 Office Visit Cardiology, [facility] [address] [place] [id number] Robert Guzman DO [address] [place] [id number] Chronic diastolic heart failure (HCC)*; S/P coronary artery stent placement; Essential hypertension; Coronary artery disease of pauma artery of pauma heart with stable angina pectoris (HCC) Allergies [...] 50 MG TabletIndications:Co ronary artery disease involving pauma heart without angina pectoris, unspecified vessel or [...] MG Sublingual Tablet Sublingual (Nitrostat)Indicatio ns:Atherosclerosis of pauma coronary artery of pauma heart without angina pectoris Place 1 Tab [...] Oral Tablet (Isordil)Indications :Coronary artery disease of pauma artery of pauma heart with stable angina pectoris (HCC),HTN (hypertension),S/P [...] artery disease of n ative artery of pauma heart with stable angina pectoris 08/05/2019 Primary osteoarthritis of right ankle Personal history of malignant neoplasm o f prostate 01/01/2018 PHYLLIS (obstructive sleep apnea) 06/10/2017 S/P coronary artery stent placement 10/20 Thoracic aortic aneurysm 03/08/2015 Atherosclerosis of pauma coronary arter y without angina pectoris Hyperlipidemia [...] Reading Time Taken Comments Blood Pressure 126/74 04/17/2023 10:47 AM EDT Pulse 64 04/17/2023 10:47 AM EDT Temperature - - Respiratory Rate - - Oxygen Saturation - - Inhaled Oxygen Concentration - - Weight 98.9 kg (218 lb) 04/17/2023 10:47 AM EDT Height - - Body Mass Index 36.28 01/03/2023 9:43 AM EDT documented in this encounter Progress Notes * Robert Guzman, DO - 04/17/2023 11:07 AM EDT Cardiology Outpatient Follow-up Román Fry is a 82 year old male who is seen for follow-up of coronary artery disease. HPI: This is an elderly 82-year-old male patient who is with his daughter today who is a nurse. I saw him for the 1st time in December. He has a history of previous coronary artery bypass surgery, left bundlebranch block and previous ablation for an SVT. During his last visit he expressed that he was more short of breath with activity. He has a history of prostate cancer with incontinence and did not like taking his Lasix. I encouraged him to take it at least 3 times a week. He returned today and stillfeels very short of breath. According to his daughter, he has had a full workup in the past including PFTs and chest x-rays that have been unremarkable. He is followed by sleep medicine and uses BiPAP nightly. He is not had orthopnea or lower extremity edema. No activity related chest pain. No heart palpitations or tachycardia. Past Medical History: Diagnosis Date Chronic cough Chronic rhinitis Coronary artery disease Hyperlipidemia LDL goal < 70 Osteoarthritis Prostate cancer (HCC) Sleep apnea, obstructive Thoracic aortic aneurysm (HCC) Patient Active Problem List Diagnosis Code Atherosclerosis of pauma coronary artery without angina pectoris I25.10 Hyperlipidemia with target LDL less than 70 E78.5 Thoracic aortic aneurysm (HCC) I71.20 S/P coronary artery stent placement Z95.5 PHYLLIS (obstructive sleep apnea) G47.33 Personal history of malignant neoplasm of prostate Z85.46 Primary osteoarthritis of right ankle M19.071 HTN (hypertension) I10 Coronary artery disease of pauma artery of pauma heart with stable angina pectoris (HCC) I25.118 Chronic diastolic heart failure ([facility]) I50.32 Obstructive lung disease ([facility]) J44.9 History of right nephrectomy Z90.5 Chronic kidney disease, stage 3a ([facility]) N18.31 Generalized osteoarthritis of multiple sites M15.9 Past Surgical History: Procedure Laterality Date ARTHROPLASTY KNEE TIBIAL PLATEAU Bilateral - Roeshot CABG, ARTERY-VEIN, FIVE 2005 [facility] CARDIAC ANGIOPLASTY, PERCUTANEOUS, 1 ARTERY Right 10/23/2016 PTCA, CARDIAC ANGIOPLASTY, PERCUTANEOUS, 1 ARTERY performed by Srikanth Kaminski MD at [facility] [place] CARPAL TUNNEL SURGERY Bilateral MISCELLANEOUS ORDER ([facility] [...] 5 ICAPS LUTEIN-ZEAXANTHIN PO TBCR 1 daily Acetaminophen ER 650 MG Oral Tablet Extended [...] DAILY (Patient not taking: Reported on 01/16/2023) aspirin 81 MG chewable tablet Take 1 Tablet by mouth in the morning. with food.. 100 Tab 5 Diclofenac Sodium (VOLTAREN) 1 % gel Place [...] HOUR prior to dentalappointment 12 Capsule 1 No current facility-administered medications for this visit. ROS: Review of Systems: See HPI for pertinent positives. All other review of systems is negative. PHYSICAL EXAMINATION BP 126/74 (BP Cuff Size: Large) | Pulse 64 | Wt 98.9 kg (218 lb) | BMI 36.28 kg/m | BSA 2.13 m Body mass index is 36.28 kg/m. General: no acute distress and stated [...] Laboratory Data Review: No recent data Impression: 1. Coronary artery disease status post bypass grafting surgery x5 with followup PCI to the natives,third marginal, proximal RCA, distal RCA, and first RPL, October 2016. 2. Prostate carcinoma. 3. History of chronic stable angina. 4. GERD. 5. History of left bundle branch block. 6. History of asymptomatic Mobitz 1. 7. History of SVT status post ablation. 8. Hypertension. 9. Dyslipidemia. 10. 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 By my exam today I do not believe he is volume overloaded.I do note on previous lab work several months ago he was anemic with a hemoglobin of 10. I ordered additional lab work today. I also ordered an echocardiogram to evaluate LV function. He will return in about a month so that we can review the above and monitor his progress. This chart was completed in part utilizing [employer] Speech Voice Recognition Software. Grammatical errors, random [...] a total of 40-54 minutes (exact time 41 mins) on the date of service in preparation, delivery, and documentation of the care provided to Román Fry excluding any time spent in the performance of separately billed services. Robert Guzman DO Cardiology, [facility] [address] [place] [address] 04/17/2023 documented in this encounter Nursing Notes * Fantasma Rocha RN - 04/17/2023 10:46 AM EDT Examination Room: room 16 Name: Román Fry Date of : (1940). Reason for Visit: for follow up Interim Hospitalization(s): denies Problems/Concerns: denies Chest Pain/SOB: SOB denies chest pain [facility] Discussed: Not applicable [facility] is a way you can talk to [...] 06/05/2023 Office Visit Cardiology Robert Guzman DO [address] [place] [id number] 06/05/2023 Office Visit Family Medicine Kamari Betancourt MD [address] [place] [address] 01/07/2024 Office Visit Sleep Disorders Tiffany Jefferson CRNP [address] [place] [address] Pending Results Name Type Priority Associated Diagnoses Date /Time CBC WITH WBC DIFFERENTIAL Lab Routine S/P coronary artery stent placement Essential hypertension Chronic diastolic heart failure (HCC) Coronary artery disease of pauma artery of pauma heart with stable angina pectoris (HCC) 04/17/2023 11:12 AM EDT COMPREHENSIVE METABOLIC PANEL Lab Routine S/P coronary artery stent placement Essential hypertension Chronic diastolic heart failure (HCC) Coronary artery disease of pauma artery of pauma heart with stable angina pectoris (HCC) 04/17/2023 11:12 AM EDT Scheduled Orders Name Type Priority Associated Diagnoses Orde r Schedule CBC WITH WBC DIFFERENTIAL Lab Routine S/P coronary artery stent placement Essential hypertension Chronic diastolic heart failure (HCC) Coronary artery disease of pauma artery of pauma heart with stable angina pectoris (HCC) Expected: 04/17/2023, Expires: 07/17/2023 COMPREHENSIVE METABOLIC PANEL Lab Routine S/P coronary artery stent placement Essential hypertension Chronic diastolic heart failure (HCC) Coronary artery disease of pauma artery of pauma heart with stable angina pectoris (HCC) Expected: 04/17/2023, Expires: 07/17/2023 ECHO, COMPLETE (2D), TRANS-THORACIC Echocardiology Routine S/P coronary artery stent placement Essential hypertension Chronic diastolic heart failure (HCC) Coronary artery disease of pauma artery of pauma heart with stable angina pectoris (HCC) Expected: 04/17/2023, Expires: 07/17/2023 Health Maintenance Due Date Last Done Comments COVID-19 Vaccine (3 - Moderna series) 10/17/2020 08/22/2020, 07/25/2020 CKD PHOS USE SMARTSET [id number] 08/13/2021 08/13/2020 Depression Screening 01/04/2022 01/04/2021 Influenza Vaccine (FLU shot) (#1) 2023 06/07/2022, 05/22/2022, 04/29/2021, Additional history exists GFR 05/30/2023 11/27/2022, 07/22, 06/20/2022, Additional history exists DTaP,Tdap,and Td Vaccines (2 - Td or Tdap) 11/14/2023 11/13/2013, 08/02/2011, 08/02/2011 Albumin/Creatinine Ratio 11/28/2023 023, 06/05/2022, 12/01/2021, Additional history exists CKD HGB USE SMARTSET [id number] 11/28/202311/27, 08/09/2022, 08/09/2022, Additional history exists O2 [...] failure (HCC)- Primary Chronic diastolic heart failure S/P coronary artery stent placement Postsurgical percutaneous transluminal coronary angioplasty status Essential hypertension Unspecified essential hypertension Coronary artery disease of pauma artery of pauma heart with stable angina pectoris (HCC) documented [...] the patient have Health Care Power of Pastry Cook Apprentice? No Care Teams Feather Baler Relationship Specialty Start Date End Date Kamari Betancourt MD [address] [place] [address] PCP - General Family Medicine 10/09/13 documented as of this encounter"
--- OUTSIDE RECORDS SUMMARY | 2023-08-02 07:32 | External Medical Summary | Summary of Care ---
Author Name Unknown Organization [facility] Address [address] [place] [address] Phone [phone] Care Team Providers Care Senior Government Program Analyst Name Role Phone Kamari Betancourt MD Primary Care Provider [phone] Reason for Visit * Reason Comments Follow Up PHYLLIS Encounter Details Date Type Department Care Team Description 01/03/2023 Office Visit Sleep Disorders Ctr [facility] [address] [place] [id number] Tiffany Jefferson CRNP [address] [place] [id number] PHYLLIS (obstructive sleep apnea)*; Sleep apnea, central; Hypersomnia Allergies Active Allergy Reactions Severity Noted Date Comments Bee Venom Medium 10/09/2013 Swelling documented as of this encounter (statuses as of 02/06/2023) Medications Medication Sig Dispensed Refills Start Date End Date Status ONE-A-DAY MENS PO TABSIndications:Ri sk and functional assessment 1 TABLET DAILY 0 [...] 0 Active metoprolol tartrate (LOPRESSOR) 50 MG TabletIndications: Coronary artery disease involving [place] heart without angina pectoris, unspecified vessel or lesion type Take 1 Tab by mouth 2 times a day. 14 Tab 0 6 Active Diclofenac Sodium (VOLTAREN) 1 % gelIndications:Mary jackie osteoarthritis involving multiple joints Place 2 g topically on the skin 4 times a day as needed for Pain, Moderate. To affected area as directed. 100 g 5 7 Active atorvaSTATin (LIPITOR) 20 MG TabletIndications: Hyperlipidemia with target LDL less than 70 Take 1 Tab by mouth daily. 90 Tab 3 9 Active HYDROcodone-Acetam inophen 7.5-325 MG Oral TabletIndications: Chest pain on breathing Take 1 Tab by mouth every 8 hours as needed for Pain, Severe. 30 Tab 0 1 Active Nitroglycerin 0.4 MG Sublingual Tablet Sublingual (Nitrostat)Indicat ions:Atheroscleros is of [place] coronary artery of [place] heart without angina pectoris Place 1 Tab under the tongue every 5 minutes as needed for Pain, Chest. 75 Tab 1 1 Active traMADol HCl 50 MG Oral Tablet (Ultram)Indication s:Post-op pain Take 1 Tab by mouth every 4 hours as needed for Pain, Moderate. 30 Tab 0 1 Active Dutasteride 0.5 MG Oral Capsule (Avodart) Take 0.5 mg by mouth daily. 30 Cap 5 1 Active BiPAP every night at bedtime . 0 Active Amoxicillin 500 MG Oral Capsule (Amoxil)Indication s:Status post total bilateral knee replacement take 4 capsules by mouth for 1 dose 1 HOUR prior to dental appointment 12 Capsule 1 2 Active Isosorbide Dinitrate 20 MG Oral Tablet (Isordil)Indicatio ns:Coronary artery disease of [place] artery of [place] heart with stable angina pectoris (HCC),HTN (hypertension),S/P coronary artery stent placement Take by mouth 3 Tablets in the morning AND 3 Tablets before bedtime. 540 Tablet 3 2 Active Ranolazine ER 500 MG Oral Tablet Extended Release 12 Hour (Ranexa) Take 1 Tablet by mouth in the morning and 1 Tablet before bedtime. 60 Tablet 11 3 Active Amoxicillin-Pot Clavulanate 500-125 MG Oral Tablet Take 1 Tablet by mouth in the morning and 1 Tablet in the evening. 0 Active Probiotic (Lactobacillus) Oral CapsuleIndications :Antibiotic causing adverse effect Take 1 Capsule by mouth in the morning and 1 Capsule before bedtime. 60 Capsule 1 3 Active Saccharomyces boulardii 250 MG Oral Capsule (Florastor)Indicat ions:Antibiotic causing adverse effect Take 1 Capsule by mouth in the morning and 1 Capsule before bedtime. 60 Capsule 3 3 Active [facility] SUPER B COMPLEX/C PO TABS Take by mouth . 0 4 023 Discontinued Ferrous Sulfate 325 (65 Fe) MG Oral Tablet (Feosol)Indication s:Other iron deficiency anemia 1 tab every other day x 4 months 60 Tab 11 1 023 Discontinued(En d of Procedure) Furosemide 20 MG Oral Tablet (Lasix)Indications :Essential hypertension TAKE 1 TABLET BY MOUTH ONCE DAILY on Saturday, Saturday and saturday 12 Tablet 3 2 023 Discontinued(Re fill) sulfamethoxazole-t rimethoprim ds OR Take 1 Tablet by mouth in the morning and 1 Tablet before bedtime. 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 08/05/2019 Primary osteoarthritis of right ankle Personal history of malignant neoplasm o f prostate 01/01/2018 PHYLLIS (obstructive sleep apnea) 06/10/2017 S/P coronary artery stent placement 10/20 Thoracic aortic aneurysm 03/08/2015 Atherosclerosis of [place] coronary arter y without angina pectoris Hyperlipidemia with target LDL less than 70 Overview: ICD-10 update of inactive term documented as of this encounter (statuses as of 02/06/2023) Resolved Problems Problem Noted Date Resolved Date Acute conjunctivitis, bilateral 01/13/2015 02/01/2017 Chronic cough 01/13/2015 02/01/2017 Chronic rhinitis 01/13/2015 02/01/2017 Osteoarthritis 07/03/2018 Prostate cancer 01/01/2018 documented as of this encounter (statuses as of 02/06/2023) Immunizations Name Administration Dates Next Due COVID-19 [...] Sign Reading Time Taken Comments Blood Pressure 130/86 01/03/2023 9:43 AM EDT Pulse 64 01/03/2023 9:43 AM EDT Temperature 36.3 C (97.4 F) 01/03/2023 9:43 AM ED T Respiratory Rate 16 01/03/2023 9:43 AM EDT Oxygen Saturation 98% 01/03/2023 9:43 AM EDT Inhaled Oxygen Concentration - - Weight 98 kg (216 lb) 01/03/2023 9:43 AM EDT Height 165.1 cm (5' 5") 01/03/2023 9:43 AM EDT Body Mass Index 35.94 01/03/2023 9:43 AM EDT documented in this encounter Patient Instructions * Patient Instructions* DENICE Campbell - 01/03/2023 10:30 AM EDT Continue use of BIPAP to include all periods of sleep. Recommended total sleep time for adults is 7-9 hours. Reminder to clean BIPAP supplies weekly and change supplies as needed. Work at making lifestyle changes to loss weight, as weight loss often results in improvement of sleep disordered breathing. Daily exercise has been shown to improve sleep quality. Avoid driving or engaging in any activity that requires full alertness if feeling sleepy, drowsy orotherwise impaired. documented in this encounter Progress Notes * DENICE Campbell - 02/06/2023 5:19 PM EDT Download from [facility] received and placed in scanning - large leak with p95% 106 L/min, rAHI 9.8. If large leak persists on low lying FFM, PAP-NAP at [facility] recommended. * DENICE Campbell - 01/03/2023 9:59 AM EDT [facility] Román Fry is a 82 year old male seen today for yearly follow-up of PHYLLIS, CSA treated on BIPAP S/T with aerophagia. Sleep Testing/History: - PSG 03/03/17 (wt 202): AHI 47 (REM 37) including 22 CA, 38 OA, 65 MA, 176 H, <89% 56 mins - Titration 03/18/17: CPAP 5 to 10, changed to BIPAP d/t CA/[facility] [place], final pressure 09/06 b/u 13 x66 min(49 mins REM, 7 mins supine) with AHI 13.7 (15 H), desats noted during last 4 hours of testing from06/27 up -Dymvghwoh35/2017: 10/07, b/u 13 with AHI 10.2 (1.3 CA),Early 2017: 04/04, b/u 13 with AHI 10;04/03, b/u 13 - AHI 11 - Pressures lowered d/t aerophagia. - Noct ox BIPAP/RA 01/14/20: SpO2 janette 88% with 0.5 minutes <89% - Pressures adjusted from 06/27 to 31/01 in 2021 Interim History: BIPAP used nightly from 2130 until 0400 when he uses the restroom. Returns to sleep until 0500. No aerophagia. Having mask leak issues that bother his . Cushion changed about every 1-1.5 months which does lessen the leak. Changes his headgear twice a year. Once a month he does unknowingly removes his mask. His machine was replaced around a year ago when his stopped working. He thinks it is a [employer] unit based on reviewing pictures online. He remains non refreshed on waking. Energy is low during the day. Napping in the afternoon for 1 hour without BIPAP. Denies drowsy driving. He's not driving much. often drives. Compliance Data: Report date: last 30 days ending 02/07/21 Equipment: DME Provider: [employer] Device: unknown Settings: 13/7 cmH20 with bur 13 Interface Type: FFM Humidifier: yes [place] Sleepiness Scale Question 01/03/2023 9:44 AM EDT - Filed by Valorie Hinton LPN What is the chance you will doze off in the following situation? Sitting and reading High chance of dozing Watching TV High chance of dozing Sitting inactive in a public place, such as a theater or meeting High chance of dozing As a passenger in a car for an hour without a break High chance of dozing Lying down to rest in the afternoon when circumstances permit High chance of dozing When sitting and talking to someone High chance of dozing When sitting quietly after lunch without alcohol High chance of dozing In a car, while stopped for a few minutes in traffic No chance of dozing Score (range: 0 - 24) 21 Problem List: Patient Active Problem List Diagnosis Code Atherosclerosis of [place] coronary artery without angina pectoris I25.10 Hyperlipidemia with target LDL less than 70 E78.5 Thoracic aortic aneurysm (HCC) I71.20 S/P coronary artery stent placement Z95.5 PHYLLIS (obstructive sleep apnea) G47.33 Personal history of malignant neoplasm of prostate Z85.46 Primary osteoarthritis of right ankle M19.071 HTN (hypertension) I10 Coronary artery disease of [place] artery of [place] heart with stable angina pectoris (HCC) I25.118 Chronic diastolic heart failure ([facility]) I50.32 Obstructive lung disease ([facility]) J44.9 History of right nephrectomy Z90.5 Chronic kidney disease, stage 3a ([facility]) N18.31 Generalized osteoarthritis of multiple sites M15.9 Current Medications: Outpatient Medications Marked as Taking for the 01/03/23 encounter (Office Visit) with DENICE Ornelas Medication Sig Ranolazine ER 500 MG Oral Tablet Extended Release 12 Hour (Ranexa) Take 1 Tablet by mouth in the morning and 1 Tablet before bedtime. Amoxicillin-Pot Clavulanate 500-125 MG Oral Tablet Take 1 Tablet by mouth in the morning and 1 Tablet in the evening. Probiotic (Lactobacillus) Oral Capsule Take 1 Capsule by mouth in the morning and 1 Capsule before bedtime. Saccharomyces boulardii 250 MG Oral Capsule (Florastor) Take 1 Capsule by mouth in the morning and 1 Capsule before bedtime. sulfamethoxazole-trimethoprim ds OR Take 1 Tablet by mouth in the morning and 1 Tablet before bedtime. Isosorbide Dinitrate 20 MG Oral Tablet (Isordil) Take by mouth 3 Tablets in the morning AND 3 Tablets before bedtime. Amoxicillin 500 MG Oral Capsule (Amoxil) take 4 capsules by mouth for 1 dose 1 HOUR prior to dental appointment Furosemide 20 MG Oral Tablet (Lasix) TAKE 1 TABLET BY MOUTH ONCE DAILY on Saturday, Saturday andsaturday BiPAP every night at bedtime . Dutasteride 0.5 MG Oral Capsule (Avodart) Take 0.5 mg by mouth daily. Ferrous Sulfate 325 (65 Fe) MG Oral Tablet (Feosol) 1 tab every other day x 4 months traMADol HCl 50 MG Oral Tablet (Ultram) Take 1 Tab by mouth every 4 hours as needed for Pain, Moderate. Nitroglycerin 0.4 MG Sublingual Tablet Sublingual (Nitrostat) Place 1 Tab under the tongue every 5 minutes as needed for Pain, Chest. HYDROcodone-Acetaminophen 7.5-325 MG Oral Tablet Take 1 Tab by mouth every 8 hours as needed for Pain, Severe. atorvaSTATin (LIPITOR) 20 MG Tablet Take 1 Tab by mouth daily. Diclofenac Sodium (VOLTAREN) 1 % gel Place 2 g topically on the skin 4 times a day as needed for Pain, Moderate. To affected area as directed. metoprolol tartrate (LOPRESSOR) 50 MG Tablet Take 1 Tab by mouth 2 times a day. Acetaminophen ER 650 MG Oral Tablet Extended Release Take 2 Tablets by mouth 2 times a day as needed. aspirin 81 MG chewable tablet Take 1 Tablet by mouth in the morning. with food.. [facility] SUPER B COMPLEX/C PO TABS Take by mouth . ICAPS LUTEIN-ZEAXANTHIN PO TBCR 1 daily OMEGA-3 FISH OIL 1000 MG PO CAPS Take by mouth . ONE-A-DAY MENS PO TABS 1 TABLET DAILY Physical Exam: BP 130/86 | Pulse 64 | Temp 36.3 C (97.4 F) | Resp 16 | Ht 1.651 m (5' 5") | Wt 98 kg (216 lb) | SpO2 98% | BMI 35.94 kg/m | BSA 2.12 m Constitutional: Alert, oriented and in no acute distress Skin: No abnormal mask markings on face Cardio: Regular rate and rhythm. No murmur. Chest: Normal respiratory effort at rest, equal breath sounds, clear to ascultation. Neuro: Fluent speech Psych: Appropriate mood and affect. Assessment & Plan: Encounter Diagnoses Name Primary? PHYLLIS (obstructive sleep apnea) Yes Sleep apnea, central Hypersomnia He is compliant by report and benefiting with PAP treatment (snoring resolved) but has persistent hypersomnia ongoing for many years. Download from BIPAP S/T requested now. Mask fitting requested for low lying mask. Patient Instructions Continue use of BIPAP to include all periods of sleep. Recommended total sleep time for adults is 7-9 hours. Reminder to clean BIPAP supplies weekly and change supplies as needed. Work at making lifestyle changes to loss weight, as weight loss often results in improvement of sleep disordered breathing. Daily exercise has been shown to improve sleep quality. Avoid driving or engaging in any activity that requires full alertness if feeling sleepy, drowsy orotherwise impaired. DENICE [facility] I spent a total of 30-39 minutes (exact time 33 mins) on the date of service in preparation, delivery, and documentation of the care provided to Román Fry excluding any time spent in the performance of separately billed services. documented in this encounter Nursing Notes * Valorie Hinton LPN - 01/03/2023 9:43 AM EDT Chief Complaint Patient presents with Follow Up PHYLLIS Pt taking antibiotic but unsure what it is DME- [facility] [place] Sleepiness Scale Question 01/03/2023 9:44 AM EDT - Filed by Valorie Hinton LPN What is the chance you will doze off in the following situation? Sitting and reading High chance of dozing Watching TV High chance of dozing Sitting inactive in a public place, such as a theater or meeting High chance of dozing As a passenger in a car for an hour without a break High chance of dozing Lying down to rest in the afternoon when circumstances permit High chance of dozing When sitting and talking to someone High chance of dozing When sitting quietly after lunch without alcohol High chance of dozing In a car, while stopped for a few minutes in traffic No chance of dozing Score (range: 0 - 24) 21 documented in this encounter Plan of Treatment Upcoming Encounters Date Type Specialty Care Team Description 03/20/2023 Office Visit [facility] [address] [facility] [id number] 04/17/2023 Office Visit Cardiology Robert Guzman DO [address] [place] [phone] 01/07/2024 Office Visit Sleep Disorders Tiffany Jefferson CRNP [address] [place] [phone] Health Maintenance Due Date Last Done Comments COVID-19 Vaccine (3 - Moderna series) 10/17/2020 08/22/2020, 07/25/2020 CKD PHOS USE SMARTSET 97337 08/13/2021 08/13/2020 Depression Screening, Annual for Pts 12 and Over 01/04/2022 01/04/2021 Influenza Vaccine (FLU shot) (#1) 2023 06/07/2022, 05/22/2022, 04/29/2021, Additional history exists GFR 05/30/2023 11/27/2022, 07/22, 06/20/2022, Additional history exists DTaP,Tdap,and Td Vaccines (2 - Td or Tdap) 11/14/2023 11/13/2013, 08/02/2011, 08/02/2011 Albumin/Creatinine Ratio 11/28/2023 023, 06/05/2022, 12/01/2021, Additional history exists CKD HGB USE SMARTSET 11653 11/28/202311/27, 08/09/2022, 08/09/2022, Additional history exists O2 [...] as of this encounter Visit Diagnoses Diagnosis PHYLLIS (obstructive sleep apnea)- Primary Obstructive sleep apnea (adult) (pediatric) Sleep apnea, central Unspecified sleep apnea Hypersomnia Hypersomnia, unspecified documented in this encounter Advance Directives Latest [...] the patient have Health Care Power of Basic Sciences Professor? No Care Teams Senior Government Program Analyst Relationship Specialty Start Date End Date Kamari Betancourt MD [address] [place] [address] PCP - General Family Medicine 10/09/13 documented as of this encounter
[2023-08-02] MEDS: CLOPIDOGREL BISULFATE 75 MG TAB PO SCH (08:37)
[2023-08-02] MEDS: ASPIRIN 81 MG ECTAB PO SCH (08:37)
[2023-08-02] MEDS: FINASTERIDE 5 MG TAB PO SCH (08:37)
[2023-08-02] MEDS: METOPROLOL TARTRATE 25 MG TAB PO SCH ×2 (08:38→20:15)
[2023-08-02] MEDS ORDERED: ENOXAPARIN INJ 40 MG/0.4 ML SYR SQ SCH (09:00)
[2023-08-02] MEDS ORDERED: hydrALAZINE HCL 20 MG/ML VIAL IV PRN ×2 (09:06→09:12)
[2023-08-02 09:14] LABS: iSTAT Creatinine 1.3 mg/dl (0.6-1.3); iSTAT Hemoglobin 12.6 g/dl (14.0-18.0); iSTAT Ionized Calcium 1.2 mmol/l (1.12-1.32); iSTAT Potassium 5.4 mmol/L (3.3-5.0)
--- NOTE | 2023-08-02 09:25 | Neurology Consultation ---
Date of Consultation August 02, 2023 Assessment & Plan (1) TIA (transient ischemic attack): 82M with a PMH of afib (sp ablation), HTN, HLD who presented with transient left face and arm numbness. Exam is currently normal and imaging has been unremarakble also. Suspect symptoms are secondary to a TIA Plan -- continue ASA -- load plavix 300 mg x1, and start 75 mg tomorrow for a total of 21 days -- outpatient cardiac monitoring - if afib is found, recommend Eliquis and no neurologic indication for antiplatelet -- LDL < 70, continue statin -- SBP < 130 -- echo pending Neurology will sign off, please page with further questions/concerns Telehealth Consultation Telehealth Information Telehealth Information: I performed this visit using a real-time telehealth connection between my location and the patients location ([facility]). After connecting through interactive tele-video, patient was identified by name and date of and/or wristband check.Patient (or authorized healthcare customer service representative) was informed that this was a telemedicine visit and it was being conducted confidentially over secure lines. My office door was closed and no one else was present in the room with me.Patient (or authorized healthcare customer service representative) provided consent to proceed with the visit, expressed an understanding of privacy and security of the telemedicine visit, and gave permission to have a hospital customer service representative in the room in order to assist with the visit and to conduct portions of the visit, as needed. I informed the patient (or authorized healthcare customer service representative) that I reviewed their record and presented the opportunity for them to ask any questions regarding the visit today. The patient agreed to participate. History of Present Illness Reason for Consultation: TIA Requesting Physician: Dr Yadav Attending Physician: Hernan Yadav MD History of Present Illness He reports that yesterday at 3pm he was eating a lollypop and his lips became numb and then the left arm became numb. He could still move it but couldn't feel the lollypop in his hand. He reports that this lasted until 10pm. He has never had symptoms like this before but does report that last week he fell out of bed and his left leg was numb for awhile after. Currenlty he feels fine and has no symptoms. He did have a low grade headache yesterday. He denies chest pain, slurred speech, weakness and SOB. He does report a history of afib and had an ablation in the past. Allergies Allergy/AdvReac Type Severity Reaction Status Date / Time bee venom protein (honey bee) Allergy Unknown Anaphylaxis Verified 08/01/23 22:42 Home Medications Medication Instructions Recorded Confirmed Type aspirin 81 mg tablet,delayed 81 mg PO DAILY 09/14/19 08/01/23 History release (Adult Aspirin Regimen) atorvastatin 40 mg tablet (Lipitor) 20 mg PO HS 09/14/19 08/01/23 History omega-3 fatty acids 1,000 mg 1,000 mg PO DAILY 09/14/19 08/01/23 History capsule (Fish Oil Concentrate) diclofenac sodium 1 % topical gel 2 g topical QID PRN Pain 08/11/20 08/01/23 History nitroglycerin 0.4 mg sublingual 0.4 mg sublingual Q5M PRN Chest 08/11/20 08/01/23 History tablet Pain hbwE-O2-W-E-cvnnnk-vwrtnet-min 1 tab PO DAILY 08/11/20 08/01/23 History 3,300 unit-5 mg-200mg-75 unit tablet ER (ICaps) acetaminophen 650 mg 1,300 mg PO Q12H PRN Pain 11/15/20 08/01/23 History tablet,extended release (Tylenol Arthritis Pain) amoxicillin 500 mg capsule 2,000 mg PO DIRECTED PRN 1/2 HR 11/15/20 08/01/23 History PRIOR TO DENTAL APPT. furosemide 20 mg tablet (Lasix) 20 mg PO 3XWK 11/15/20 08/01/23 History metoprolol tartrate 50 mg tablet 50 mg PO BID 11/15/20 08/01/23 History albuterol sulfate 90 mcg/actuation 2 puff inhalation Q6H PRN 08/01/23 08/01/23 History aerosol inhaler Shortness Of Breath Or Wheezing dutasteride 0.5 mg capsule 0.5 mg PO DAILY 08/01/23 08/01/23 History isosorbide dinitrate 20 mg tablet 40 mg PO TID 08/01/23 08/01/23 History ranolazine 500 mg tablet,extended 500 mg PO Q12H 08/01/23 08/01/23 History release,12 hr Patient History Medical History Sensorineural hearing loss of both ears History of paroxysmal supraventricular tachycardia s/p ablation PHYLLIS on CPAP HLD (hyperlipidemia) Bradycardia Diastolic heart failure Dyspnea and respiratory abnormalities HTN (hypertension) Surgical History S/P coronary artery stent placement Followup PCI to the natives, third marginal, proximal RCA, distal RCA, and first RPL, October 2016 H/O hernia repair H/O Spinal surgery H/O knee surgery 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 Family History Family/Other Heart disease Other Stroke Social History Smoking Status: Never smoker Second Hand Exposure: No; Do You Dip or Chew Tobacco: No; Tobacco Cessation Education Requested by Patient: No Hx Alcohol Use: No Hx Substance Use: No Preferred Language: Chinese Communication Ability: Effective Rn Admit Required: No Beliefs That Will Affect Care: None marital status: Current Living Situation: Spouse Other Information That Helps Us Care for You: No Feels Safe at Home: Yes Safety Concerns: Feels Safe At This Time Assistive Devices: Hearing Aid - Bilateral Physical Exam Exam: Constitutional: Appearance normally developed Head and face: normocephalic and atraumatic Eyes: no ptosis, no anisocoria, and no dysconjugate gaze Respiratory: normal effort Cardiovascular: regular rhythm and regular rate Abdomen: non distended Skin: no rashes, lesions, or ulcers noted Psychiatric: normal mood and normal affect NEUROLOGIC EXAMINATION: Mental Status:alert, normal language, and normal fund of knowledge, orientated to person and place only Cranial Nerves: CN 2 - no visual defect on confrontation and pupils round, equal, reactive to light CN 3, 4, 6 - extra-ocular movements intact and no nystagmus CN 5 - facial sensation intact CN 7 - no facial asymmetry CN 8 - intact hearing CN 9, 10 - DAMON CN 11 - good shoulder shrug CN 12 - tongue midline MOTOR: Strength was at least antigravity throughout, Pronator drift was absent, and There were no abnormal movements SENSATION: intact GAIT: deferred COORDINATION: no ataxia with finger to nose testing and heel to carter testing REFLEXES: cannot assess over telemedicine Results & Data Vital Signs (Past 12 Hours) Vital Signs Temp Pulse Pulse Resp BP BP Pulse Ox 08/02/23 08:12 36.5 C 63 20 184/107 H 93 08/02/23 07:11 46 L 08/02/23 07:00 57 L 21 97 08/02/23 07:00 196/103 H 08/02/23 06:35 53 L 20 96 08/02/23 06:35 175/93 H 08/02/23 06:30 58 L 18 98 08/02/23 06:00 50 L 15 97 08/02/23 06:00 59 L 14 175/93 H 95 08/02/23 05:30 50 L 20 78 L 08/02/23 05:30 165/111 H 08/02/23 05:20 61 28 H 98 08/02/23 05:00 16 95 08/02/23 04:31 186/107 H 08/02/23 04:31 70 19 92 08/02/23 04:30 65 21 95 08/02/23 04:00 177/108 H 08/02/23 04:00 68 18 90 08/02/23 04:00 62 20 186/107 H 94 08/02/23 03:30 65 28 H 98 08/02/23 03:30 172/106 H 08/02/23 03:01 68 22 95 08/02/23 03:01 193/104 H 08/02/23 03:00 74 16 88 L 08/02/23 02:40 36.5 C 66 18 169/89 H 99 08/02/23 02:30 169/106 H 08/02/23 02:30 60 21 98 08/02/23 02:26 175/96 H 08/02/23 02:26 23 08/02/23 02:00 77 18 175/95 H 08/02/23 01:01 178/101 H 08/02/23 01:01 71 23 97 08/02/23 01:00 71 23 95 08/02/23 00:30 63 24 93 08/02/23 00:30 173/106 H 08/02/23 00:01 198/85 H 08/02/23 00:01 66 20 94 08/02/23 00:00 68 23 93 08/02/23 00:00 75 19 198/85 H 98 08/01/23 23:41 62 08/01/23 23:30 159/88 H 08/01/23 23:30 60 22 92 08/01/23 23:00 67 23 94 08/01/23 23:00 181/109 H 08/01/23 22:31 23 93 08/01/23 22:31 202/121 H 08/01/23 22:30 19 08/01/23 22:19 24 95 08/01/23 22:19 210/124 H 08/01/23 22:16 172/117 H 08/01/23 22:16 26 H 95 08/01/23 22:00 217/128 H 08/01/23 22:00 64 21 93 08/01/23 21:31 64 26 H 94 08/01/23 21:31 177/90 H 08/01/23 21:30 21 94 O2 Del Method 08/02/23 08:12 Room Air 08/02/23 07:11 08/02/23 07:00 08/02/23 07:00 08/02/23 06:35 08/02/23 06:35 08/02/23 06:30 08/02/23 06:00 08/02/23 06:00 Room Air 08/02/23 05:30 08/02/23 05:30 08/02/23 05:20 08/02/23 05:00 08/02/23 04:31 08/02/23 04:31 08/02/23 04:30 08/02/23 04:00 08/02/23 04:00 08/02/23 04:00 Room Air 08/02/23 03:30 08/02/23 03:30 08/02/23 03:01 08/02/23 03:01 08/02/23 03:00 08/02/23 02:40 Room Air 08/02/23 02:30 08/02/23 02:30 08/02/23 02:26 08/02/23 02:26 08/02/23 02:00 08/02/23 01:01 08/02/23 01:01 08/02/23 01:00 08/02/23 00:30 08/02/23 00:30 08/02/23 00:01 08/02/23 00:01 08/02/23 00:00 08/02/23 00:00 08/01/23 23:41 08/01/23 23:30 08/01/23 23:30 08/01/23 23:00 08/01/23 23:00 08/01/23 22:31 08/01/23 22:31 08/01/23 22:30 08/01/23 22:19 08/01/23 22:19 08/01/23 22:16 08/01/23 22:16 08/01/23 22:00 08/01/23 22:00 08/01/23 21:31 08/01/23 21:31 08/01/23 21:30 Diagnostic Findings Chest X-Ray 08/01/23 19:49 SINGLE VIEW CHEST CLINICAL HISTORY: Neurologic deficit. Stroke like symptoms. FINDINGS: An AP, portable, upright chest radiograph is compared to study dated 06/20/2022 and correlated with chest CT dated 08/11/2020. The examination is degraded by portable technique and apical lordotic positioning. The patient is status post midline sternotomy. The heart is enlarged noting atherosclerotic calcification of the thoracic aorta. There is pulmonary vascular congestion. Chronic interstitial thickening is similar to previous. There is bibasilar scarring/atelectasis. No airspace consolidation or large pleural effusion is identified. No pneumothorax is seen. The skeletal structures are osteopenic. The bony thorax is grossly intact. 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 IMPRESSION: Cardiomegaly with pulmonary vascular congestion. ACT 112: Negative or not required by law. Electronically signed by: Young Frenández M.D. 08/01/2023 10:[address] 08/01/23 19:49 Exam(s): CT HEAD Without Contrast EXAM: CT Head Without Intravenous Contrast CLINICAL HISTORY: neuro deficit, acute stroke suspected. TECHNIQUE: Axial computed tomography images of the head/brain without intravenous contrast. CTDI is 35.65 mGy and DLP is 624.41 mGy-cm. Automated exposure control was utilized for the study. A dose lowering technique was utilized adhering to the principles of ALARA. COMPARISON: No relevant prior studies available. FINDINGS: Brain: There are a few areas of decreased attenuation in the deep cerebral white matter consistent with mild small vessel ischemic/degenerative changes. The cerebral and cerebellar sulci are mildly prominent consistent with mild brain atrophy. No hemorrhage. Ventricles: Unremarkable. No ventriculomegaly. Bones/joints: Unremarkable. No acute fracture. Soft tissues: Unremarkable. Vasculature: Atherosclerotic disease. Sinuses: Mucosal thickening involving the small left maxillary sinus. The paranasal sinuses are otherwise well-aerated. Mastoid air cells: Unremarkable as visualized. No mastoid effusion. IMPRESSION: No acute intracranial process identified. Incidental underlying presumed chronic age-related findings, as noted above. Electronically signed by: Carlton Torres MD 08/01/23 21:29 PM Head CTA 08/01/23 19:49 Exam(s): CTA HEAD With Contrast IV Amt: 118 ml opti 320 EXAM: CT Angiography Head With Intravenous Contrast CLINICAL HISTORY: neuro deficit, acute stroke suspected. TECHNIQUE: Axial computed tomographic angiography images of the head with intravenous contrast. CTDI is 14.33 mGy and DLP is 548.85 mGy-cm. Automated exposure control was utilized for the study. A dose lowering technique was utilized adhering to the principles of ALARA. MIP reconstructed images were created and reviewed. CONTRAST: Patient received 118 ml opti 320 of IV contrast COMPARISON: No relevant prior studies available. FINDINGS: Right internal carotid artery: Prominent atherosclerotic calcification of the cavernous and supraclinoid segments of the right internal carotid artery. Mild to moderate narrowing of the distal internal carotid segment suspected. No occlusion. The petrous segment is patent. No aneurysm. Right anterior cerebral artery: Unremarkable. No occlusion or significant stenosis. No aneurysm. Right middle cerebral artery: Unremarkable. No occlusion or significant stenosis. No aneurysm. Right posterior cerebral artery: Unremarkable. No occlusion or significant stenosis. No aneurysm. Right vertebral artery: Unremarkable as visualized. Left internal carotid artery: Moderate atherosclerotic calcification of the cavernous and supraclinoid segments of the left internal carotid artery. Mild narrowing of the distal internal carotid segment. The left petrous segment is patent. No aneurysm. Left anterior cerebral artery: Unremarkable. No occlusion or significant stenosis. No aneurysm. Left middle cerebral artery: Unremarkable. No occlusion or significant stenosis. No aneurysm. Left posterior cerebral artery: Unremarkable. No occlusion or significant stenosis. No aneurysm. Left vertebral artery: Unremarkable as visualized. Basilar artery: Unremarkable. No occlusion or significant stenosis. No aneurysm. Dural sinuses/cerebral veins: The dural sinuses are unremarkable. Brain: No abnormal parenchymal enhancement. IMPRESSION: 1. Atherosclerotic calcification of the bilateral cavernous and supraclinoid internal carotid arteries with mild narrowing distally on the left and mild to moderate narrowing distally on the right. No occlusion or critical stenosis. 2. Otherwise negative intracranial CTA examination. Electronically signed by: Carlton Torres MD 08/01/23 21:21 PM Neck CTA 08/01/23 19:49 Exam(s): CTA NECK With Contrast IV Amt: 118 ml opti 320 EXAM: CT Angiography Neck With Intravenous Contrast CLINICAL HISTORY: neuro deficit, acute stroke suspected. TECHNIQUE: Routine carotid CT angiography protocol was performed with intravenous contrast. NASCET criteria using the distal ICAs for comparison were used for evaluation of stenoses. CTDI is 26.99 mGy and DLP is 13.49 mGy-cm. Automated exposure control was utilized for the study. A dose lowering technique was utilized adhering to the principles of ALARA. MIP reconstructed images were created and reviewed. CONTRAST: Patient received 118 ml opti 320 of IV contrast COMPARISON: None. FINDINGS: VASCULATURE: Right common carotid artery: Unremarkable. No occlusion or significant stenosis. No dissection. Right internal carotid artery: Atherosclerotic calcification of the proximal right internal carotid artery, extending to the carotid bifurcation. No significant narrowing by NASCET criteria. The mid to distal right internal carotid artery is patent. Right external carotid artery: Unremarkable. No occlusion. 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 Left common carotid artery: Unremarkable. No occlusion or significant stenosis. No dissection. Left internal carotid artery: Atherosclerotic calcification of the proximal left internal carotid artery, extending to the carotid bifurcation. No significant narrowing by NASCET criteria. The mid to distal right internal carotid artery is patent. No dissection. Left external carotid artery: Unremarkable. No occlusion. Left vertebral artery: Unremarkable. No occlusion or significant stenosis. No dissection. Brachiocephalic and subclavian arteries: There is a bovine type I branching pattern of the proximal great vessels. Atherosclerotic calcification without significant ostial stenosis. Aorta: Atherosclerotic calcification of the aortic arch without dissection or aneurysm. Postoperative changes consistent with prior CABG. NECK: Bones/joints: Unremarkable. No acute fracture. Soft tissues: Unremarkable. Lung apices: Clear. CAROTID STENOSIS REFERENCE USING NASCET CRITERIA: % ICA stenosis = (1 - narrowest ICA diameter/diameter of distal cervical ICA) x 100. Mild - <50% stenosis. Moderate - 50-69% stenosis. Severe - 70-94% stenosis. Near occlusion - 95-99% stenosis. Occluded - 100% stenosis. IMPRESSION: 1. 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 The left vertebral artery is widely patent. 2. Atherosclerotic calcification of both carotid bifurcations without significant narrowing by NASCET criteria. The common carotid and internal carotid arteries are otherwise patent. Electronically signed by: Carlton Torres MD 08/01/23 21:28 PM Brain MRI 08/02/23 00:31 Exam(s): MRI HEAD Without Contrast EXAM: MR Head Without Intravenous Contrast CLINICAL HISTORY: tia. TECHNIQUE: Magnetic resonance images of the head/brain without intravenous contrast in multiple planes. COMPARISON: CT head without contrast performed 08/01/2023 at 2052 hrs. FINDINGS: Brain: Diffusion-weighted imaging is negative for acute or subacute infarct. Abnormal T2 signal in the deep cerebral white matter is consistent with small vessel ischemic/degenerative changes. The cerebral and cerebellar sulci are prominent consistent with brain atrophy. No hemorrhage. No mass effect. Ventricles: Unremarkable. No ventriculomegaly. Bones/joints: Unremarkable. No acute fracture. Sinuses: Mucosal thickening noted involving the left maxillary sinus. The remaining paranasal sinuses are well-aerated. No acute sinusitis. Mastoid air cells: Unremarkable as visualized. No mastoid effusion. Orbits: Unremarkable as visualized. IMPRESSION: 1. No evidence of acute or subacute infarct. 2. Chronic small vessel ischemic/degenerative changes. 3. Chronic cerebral and cerebellar atrophy. Electronically signed by: Carlton Torres MD 08/02/23 02:21 AM
[2023-08-02] MEDS ORDERED: CLOPIDOGREL BISULFATE 75 MG TAB PO SCH (09:50)
[2023-08-02] MEDS ORDERED: PNEUMOCOCCAL VACCINE (PCV20) 20-VAL CONJ-DIP CRM/PF 0.5 ML SYR IM ONE (10:15)
--- NOTE | 2023-08-02 12:01 | Electrocardiogram Report ---
Test Reason : Blood Pressure : / mmHG Vent. Rate : 061 BPM Atrial Rate : 061 BPM P-R Int : 160 ms QRS Dur : 130 ms QT Int : 442 ms P-R-T Axes : 021 -74 134 degrees QTc Int : 444 ms Sinus rhythm with Premature supraventricular complexes Left anterior fascicular block Non-specific intra-ventricular conduction delay Abnormal ECG When compared with ECG of 20-JUN-2022 15:34, No significant change was found Confirmed by Israel Schafer ([id number]) on 08/02/2023 12:01:24 PM Referred By: REFERRED SELF Confirmed By:Israel Schafer
--- NOTE | 2023-08-02 12:03 | Electrocardiogram Report ---
Test Reason : Blood Pressure : / mmHG Vent. Rate : 066 BPM Atrial Rate : 066 BPM P-R Int : 172 ms QRS Dur : 136 ms QT Int : 444 ms P-R-T Axes : 083 -73 116 degrees QTc Int : 465 ms Sinus rhythm with Premature atrial complexes Left anterior fascicular block Right bundle branch block Left ventricular hypertrophy 2t , age undetermined Abnormal ECG When compared with ECG of 01-AUG-2023 19:32, No significant change Confirmed by Israel Schafer ([id number]) on 08/02/2023 12:03:25 PM Referred By: REFERRED SELF Confirmed By:Israel Schafer
[2023-08-02 12:52] LABS: Lyme Ab IgG w/WB Rflx Negative (Negative)
[2023-08-02 12:53] LABS: Lyme Ab IgM w/WB Rflx Negative (Negative)
--- NOTE | 2023-08-02 15:22 | Pharmacy Report ---
- Date of Service August 02, 2023 - Pharmacy CVA/TIA Medication Review Medications to Prevent Stroke handout has been added to the patients discharge packet. Antiplatelet(s) * Aspirin 81mg PO daily, clopidogrel 75mg PO daily Cholesterol * High intensity statin: atorvastatin 40 mg daily DVT Prophylaxis * SCD knee Therapeutic Anticoagulation * No history of Afib/Aflutter noted Type 2 Diabetes * Patient does not have T2DM
--- NOTE | 2023-08-02 17:08 | Hospitalist Progress Note ---
Date of Service August 02, 2023 Assessment & Plan (1) TIA (transient ischemic attack): Plan: Transient ischemic attack --MRI Brain:No evidence of acute or subacute infarct. Chronic small vessel ischemic/degenerative changes. Chronic cerebral and cerebellar atrophy. 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 The left vertebral artery is widely patent. Atherosclerotic calcification of both carotid bifurcations without significant narrowing by NASCET criteria. The common carotid and internal carotid arteries are otherwise patent. --Head CTA:Atherosclerotic calcification of the bilateral cavernous and supr aclinoid internal carotid arteries with mild narrowing distally on the left and mild to moderate narrowing distally on the right. No occlusion or critical stenosis. Otherwise negative intracranial CTA examination. -- Echo pending Continue dual antiplatelet therapy with aspirin and Plavix for 21 days and then transition to Plavix alone Monitor for any arrhythmias Needs follow-up with neurology on discharge Allow permissive hypertension Monitor BP Increase statin dose to 40 mg daily PT OT, speech eval Hypertensive urgency Likely secondary to above Continue metoprolol Adjust medications as needed Monitor BP Chronic diastolic heart failure Clinically no signs of decompensation Continue home medications Resume home diuretics as able Monitor volume status H/O CAD S/P CABG/stent PVD chronic LBBB SVT S/P Ablation Continue aspirin, statin, beta-rachel Hyperlipidemia Continue statin COPD PHYLLIS on BiPAP No signs of exacerbation Inhalers as needed Prostate cancer s/p radiation Renal oncocytoma S/P surgery DVT Px: SCDs for now Code Status Full code Admission and Anticipated Discharge Date Admission Date: August 02, 2023 Subjective Patient is seen and examined at bedside Left facial and left upper extremity numbness is completely resolved Denies any focal weakness Discussed with neurology today Denies any chest pain, dyspnea, dizziness, nausea, vomiting, abdominal pain Reports generalized body ache Review of Systems Review of Systems: All systems reviewed & are unremarkable except as noted in Subjective Physical Exam Physical Exam: Physical Exam: Vitals signs as noted above General Appearance:Obese, no apparent distress Head: normocephalic, Atraumatic Eyes: normal inspection, EOMI Neck: supple, Trachea midline Respiratory/Chest: Normal breath sounds, CTA, No accessory muscle use Cardiovascular: S1, S2, No murmur Abdomen/GI:Soft, Non tender, Bowel sounds present Extremities/Musculoskeletal:normal inspection, no edema Neurologic/Psych:AAOX3, grossly no focal neurological deficits Skin: normal color, warm Results & Data Results & Data Vital Signs (Past 12 Hours) Vital Signs Temp Pulse Pulse Resp BP BP Pulse Ox 08/02/23 16:22 69 21 153/102 H 96 08/02/23 15:15 64 17 148/94 H 93 08/02/23 14:05 66 15 153/96 H 95 08/02/23 12:05 79 20 155/86 H 97 08/02/23 08:12 36.5 C 63 20 184/107 H 93 08/02/23 07:11 46 L 08/02/23 07:00 57 L 21 97 08/02/23 07:00 196/103 H 08/02/23 06:35 53 L 20 96 08/02/23 06:35 175/93 H 08/02/23 06:30 58 L 18 98 08/02/23 06:00 50 L 15 97 08/02/23 06:00 59 L 14 175/93 H 95 08/02/23 05:30 50 L 20 78 L 08/02/23 05:30 165/111 H 08/02/23 05:20 61 28 H 98 O2 Del Method 08/02/23 16:22 Room Air 08/02/23 15:15 Room Air 08/02/23 14:05 Room Air 08/02/23 12:05 Room Air 08/02/23 08:12 Room Air 08/02/23 07:11 08/02/23 07:00 08/02/23 07:00 08/02/23 06:35 08/02/23 06:35 08/02/23 06:30 08/02/23 06:00 08/02/23 06:00 Room Air 08/02/23 05:30 08/02/23 05:30 08/02/23 05:20 Laboratory Results Short CBC 08/01/23 08/02/23 Range/Units 19:30 05:02 WBC 6.54 6.67 (4.8-10.8) K/ul Hgb 13.4 L 14.2 (14.0-18.0) g/dl Hct 39.4 L 41.1 L (42.0-52.0) % Plt Count 147 137 (130-400) K/uL BMP 08/01/23 08/02/23 19:30 05:02 Sodium 141 138 Potassium 4.1 4.0 Chloride 108 H 106 Carbon Dioxide 26 26 BUN 38 H 31 H Creatinine 1.28 1.16 Glucose 102 H 89 Calcium 9.0 9.0 Liver Function 08/01/23 Range/Units 19:30 Total Bilirubin 0.4 (0.2-1.0) mg/dl AST 20 (13-39) U/L ALT 17 (7-52) U/L Alkaline Phosphatase 108 H (34-104) U/L Albumin 3.9 (3.4-5.0) gm/dl
[2023-08-02] MEDS: ISOSORBIDE DINITRATE 40 MG TAB PO SCH (20:15)
[2023-08-02] MEDS ORDERED: ATORVASTATIN 40 MG TAB PO SCH (21:00)
[2023-08-02] MEDS ORDERED: ATORVASTATIN 20 MG TAB PO SCH (21:00)
[2023-08-03 05:17] LABS: Basophils # (auto) 0.04 K/uL (0.00-0.20); Basophils % (auto) 0.6 %; Eosinophils # (auto) 0.36 K/uL (0.00-0.50); Hematocrit (blood only) 41.2 % (42.0-52.0); Hemoglobin 13.9 g/dl (14.0-18.0); Immature Granulocytes # (auto) 0.05 K/uL (0.01-0.20); Immature Granulocytes % (auto) 0.7 %; Lymphocytes # (auto) 1.45 K/uL (1.20-3.40); Lymphocytes % (auto) 19.9 %; Mean Corpuscular Hemoglobin 30.8 pg (25.0-34.0); Mean Corpuscular Hgb Conc 33.7 g/dL (32.0-36.0); Mean Corpuscular Volume 91.2 fL (80.0-100.0); Mean Platelet Volume 9.7 fL (9.4-12.4); Monocytes # (auto) 0.76 K/uL (0.11-0.59); Monocytes % (auto) 10.5 %; Neutrophils # (auto) 4.61 K/uL (1.40-6.50); Neutrophils % (auto) 63.3 %; Platelet Count 143 K/uL (130-400); RDW Coefficient of Variation 13.1 % (11.5-14.5); RDW Standard Deviation 43.5 fL (36.4-46.3); Red Blood Count 4.52 M/uL (4.70-6.10); White Blood Count 7.27 K/ul (4.8-10.8)
[2023-08-03 05:30] LABS: BUN Creatinine Ratio 22.6 (10-20); Creatinine Clr Calc Pharmacy 45.3 ml/min; Est GFR (African American) 56.1 ml/min; Est GFR (Non-African American) 48.4 ml/min; Magnesium 1.9 mg/dl (1.7-2.4)
[2023-08-03] MEDS: ISOSORBIDE DINITRATE 40 MG TAB PO SCH ×2 (06:15→13:17)
[2023-08-03] MEDS: METOPROLOL TARTRATE 25 MG TAB PO SCH (08:25)
[2023-08-03] MEDS: ASPIRIN 81 MG ECTAB PO SCH (08:25)
[2023-08-03] MEDS: FINASTERIDE 5 MG TAB PO SCH (08:26)
[2023-08-03] MEDS: CLOPIDOGREL BISULFATE 75 MG TAB PO SCH (08:26)
--- NOTE | 2023-08-03 13:39 | Hospitalist Progress Note ---
Date of Service August 03, 2023 Assessment & Plan (1) TIA (transient ischemic attack): Plan: Transient ischemic attack --MRI Brain:No evidence of acute or subacute infarct. Chronic small vessel ischemic/degenerative changes. Chronic cerebral and cerebellar atrophy. 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 The left vertebral artery is widely patent. Atherosclerotic calcification of both carotid bifurcations without significant narrowing by NASCET criteria. The common carotid and internal carotid arteries are otherwise patent. --Head CTA:Atherosclerotic calcification of the bilateral cavernous and supr aclinoid internal carotid arteries with mild narrowing distally on the left and mild to moderate narrowing distally on the right. No occlusion or critical stenosis. Otherwise negative intracranial CTA examination. -- Echo: Moderate concentric LVH. Small sized inferior wall motion abnormality with hypokinesis of the segments. Left ventricular wall motion is normal. EF 50 to 55%. Aortic valve sclerosis mild, without significant stenosis. Grade 1 diastolic dysfunction. Compared to prior study in 2020, subtle inferior wall motion abnormality is now observed. Inferior wall motion abnormality was observed on prior study in 2012 as well. Continue dual antiplatelet therapy with aspirin and Plavix for 21 days and then transition to Plavix alone Monitor for any arrhythmias--no issues while hospitalized Allow permissive hypertension Monitor BP Increase statin dose to 40 mg daily PT OT, speech eval: PT recommends return home Advised to follow-up with neurology on discharge Plan to be discharged home today Hypertensive urgency Likely secondary to above Continue metoprolol Adjust medications as needed BP better Chronic diastolic heart failure Clinically no signs of decompensation Continue home medications Resume home diuretics as able Monitor volume status H/O CAD S/P CABG/stent PVD chronic LBBB SVT S/P Ablation Continue aspirin, statin, beta-rachel Hyperlipidemia Continue statin COPD PHYLLIS on BiPAP No signs of exacerbation Inhalers as needed Prostate cancer s/p radiation Renal oncocytoma S/P surgery DVT Px: SCDs for now Code Status Full code Disposition Home Admission and Anticipated Discharge Date Admission Date: August 02, 2023 Subjective Patient is seen and examined at bedside No new symptoms Left facial and left upper extremity numbness resolved Denies any chest pain, dyspnea, dizziness, nausea, vomiting, abdominal pain Plan to be discharged home today Review of Systems Review of Systems: All systems reviewed & are unremarkable except as noted in Subjective Physical Exam Physical Exam: Physical Exam: Vitals signs as noted above General Appearance:Obese, no apparent distress Head: normocephalic, Atraumatic Eyes: normal inspection, EOMI Neck: supple, Trachea midline Respiratory/Chest: Normal breath sounds, CTA, No accessory muscle use Cardiovascular: S1, S2, No murmur Abdomen/GI:Soft, Non tender, Bowel sounds present Extremities/Musculoskeletal:normal inspection, no edema Neurologic/Psych:AAOX3, grossly no focal neurological deficits Skin: normal color, warm Results & Data Results & Data Vital Signs (Past 12 Hours) Vital Signs Temp Pulse Pulse Resp BP BP Pulse Ox 08/03/23 11:38 36.5 C 75 20 130/74 94 08/03/23 10:24 08/03/23 08:00 36.5 C 67 20 125/78 94 08/03/23 07:56 61 08/03/23 03:07 36.8 C 69 18 125/77 90 08/03/23 03:04 63 21 93 O2 Del Method FiO2 08/03/23 11:38 Room Air 08/03/23 10:24 Room Air 08/03/23 08:00 Room Air 08/03/23 07:56 08/03/23 03:07 Room Air, CPAP 08/03/23 03:04 21 Laboratory Results Short CBC 08/03/23 Range/Units 04:30 WBC 7.27 (4.8-10.8) K/ul Hgb 13.9 L (14.0-18.0) g/dl Hct 41.2 L (42.0-52.0) % Plt Count 143 (130-400) K/uL BMP 08/03/23 04:30 Sodium 138 Potassium 4.0 Chloride 106 Carbon Dioxide 26 BUN 30 H Creatinine 1.33 Glucose 112 H Calcium 9.0
[2023-08-03] MEDS ORDERED: STROKE PATIENT DISCHARGE STA (13:48)
--- NOTE | 2023-08-03 13:49 | Discharge Summary ---
Date of Service August 03, 2023 Admission HPI Per Admitting Provider History obtained from patient and records. Medical history significant for chronic diastolic heart failure (50%, TTE 2022), CAD status post CABG/stent, chronic LBBB, SVT status post ablation, PVD, hypertension, hyperlipidemia, COPD, PHYLLIS on BiPAP, prostate cancer status post radiation, renal oncocytoma status post surgery. Last confinement July 2020 for chest pain. This afternoon, patient noted sudden onset left face and left upper arm numbness without headache symptoms. No chest pain, usual SOB as per patient No prior episodes. Patient compliant with home aspirin. Symptoms currently resolved at the ER. 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 Admission Exam Per Admitting Provider GENERAL: Comfortable, pleasant, obese, no respiratory distress SKIN: Normal color, warm HEENT: [place] palpebral conjunctivae, no ptosis, dry buccal mucosa NECK : Supple, short neck, no tenderness CHEST : CTA, no tenderness HEART : RRR, no obvious murmurs ABDOMEN: Some distention, nontender EXTREMITIES : Minimal LE swelling, no LE tenderness, no other conspicuous defor mities noted NEUROLOGIC : Coherent, no facial asymmetry, no pronator drift, MMTS BLE/BLE 4/5, gait and stance not assessed Principal Diagnosis Transient ischemic attack Hypertension Transient bradycardia Discharge Data Allergies Allergy/AdvReac Type Severity Reaction Status Date / Time bee venom protein (honey bee) Allergy Unknown Anaphylaxis Verified 08/01/23 22:42 Consultations 08/01/23 22:01 ED Decision to Admit Stat 08/02/23 00:31 Consult Neurology Routine Procedures Performed Laboratory Results WBC 7.27 K/ul (4.8-10.8) 08/03/23 04:30 RBC 4.52 M/uL (4.70-6.10) L 08/03/23 04:30 Hgb 13.9 g/dl (14.0-18.0) L 08/03/23 04:30 POC Hgb 12.6 g/dl (14.0-18.0) L 08/01/23 20:09 Hct 41.2 % (42.0-52.0) L 08/03/23 04:30 POC Hct 37 % (42-52) L 08/01/23 20:09 MCV 91.2 fL (80.0-100.0) 08/03/23 04:30 MCH 30.8 pg (25.0-34.0) 08/03/23 04:30 MCHC 33.7 g/dL (32.0-36.0) 08/03/23 04:30 RDW Std Deviation 43.5 fL (36.4-46.3) 08/03/23 04:30 RDW Coeff of [place] 13.1 % (11.5-14.5) 08/03/23 04:30 Plt Count 143 K/uL (130-400) 08/03/23 04:30 MPV 9.7 fL (9.4-12.4) 08/03/23 04:30 Immature Gran % (Auto) 0.7 % 08/03/23 04:30 Neut % (Auto) 63.3 % 08/03/23 04:30 Lymph % (Auto) 19.9 % 08/03/23 04:30 [place] % (Auto) 10.5 % 08/03/23 04:30 Eos % (Auto) 5.0 % 08/03/23 04:30 Baso % (Auto) 0.6 % 08/03/23 04:30 Neut # (Auto) 4.61 K/uL (1.40-6.50) 08/03/23 04:30 Lymph # (Auto) 1.45 K/uL (1.20-3.40) 08/03/23 04:30 [place] # (Auto) 0.76 K/uL (0.11-0.59) H 08/03/23 04:30 Eos # (Auto) 0.36 K/uL (0.00-0.50) 08/03/23 04:30 Baso # (Auto) 0.04 K/uL (0.00-0.20) 08/03/23 04:30 Immature Gran # (Auto) 0.05 K/uL (0.01-0.20) 08/03/23 04:30 PT 11.5 Seconds (9.0-12.0) 08/01/23 19:30 INR 1.1 (0.9-1.1) 08/01/23 19:30 APTT 27 Seconds (21-31) 08/01/23 19:30 PTT Ratio 1.0 08/01/23 19:30 POC Sodium 142 mmol/L (135-144) 08/01/23 20:09 Sodium 138 mmol/L (136-145) 08/03/23 04:30 POC Potassium 5.4 mmol/L (3.3-5.0) H 08/01/23 20:09 Potassium 4.0 mmol/L (3.5-5.1) 08/03/23 04:30 POC Chloride 106 mmol/L (101-112) 08/01/23 20:09 Chloride 106 mmol/L (98-107) 08/03/23 04:30 Carbon Dioxide 26 mmol/L (21-32) 08/03/23 04:30 POC Total CO2 27 mmol/L (24-31) 08/01/23 20:09 Anion Gap 6 (3-11) 08/03/23 04:30 POC Anion Gap 15.0 mmol/L (16-25) L 08/01/23 20:09 POC BUN 46 mg/dl (7-18) H 08/01/23 20:09 BUN 30 mg/dl (6-23) H 08/03/23 04:30 Creatinine 1.33 mg/dl (0.6-1.4) 08/03/23 04:30 POC Creatinine 1.3 mg/dl (0.6-1.3) 08/01/23 20:09 Est Cr Clr Drug Dosing 45.3 ml/min 08/03/23 04:30 Est GFR ( Amer) 56.1 ml/min 08/03/23 04:30 Est GFR (Non-Af Amer) 48.4 ml/min 08/03/23 04:30 BUN/Creatinine Ratio 22.6 (10-20) H 08/03/23 04:30 Glucose 112 mg/dl (70-99(Fasting)) H 08/03/23 04:30 POC Glucose 102 mg/dl (70-99) H 08/01/23 19:41 POC Glucose (other) 102 mg/dl (70-99) H 08/01/23 20:09 Estimat Average Glucose 120 mg/dl 08/02/23 05:02 Hemoglobin A1c 5.8 % (4.5-5.6) H 08/02/23 05:02 Calcium 9.0 mg/dl (8.6-10.3) 08/03/23 04:30 POC Ioniz Calcium Deepali 1.20 mmol/l (1.12-1.32) 08/01/23 20:09 Magnesium 1.9 mg/dl (1.7-2.4) 08/03/23 04:30 Total Bilirubin 0.4 mg/dl (0.2-1.0) 08/01/23 19:30 AST 20 U/L (13-39) 08/01/23 19:30 ALT 17 U/L (7-52) 08/01/23 19:30 Alkaline Phosphatase 108 U/L (34-104) H 08/01/23 19:30 Troponin I High Sens 13.5 pg/ml (0-20) 08/01/23 19:30 Total Protein 7.1 gm/dl (6.0-8.3) 08/01/23 19:30 Albumin 3.9 gm/dl (3.4-5.0) 08/01/23 19:30 Globulin 3.2 gm/dl (2.5-4.0) 08/01/23 19:30 Albumin/Globulin Ratio 1.2 (0.9-2) 08/01/23 19:30 Triglycerides 78 mg/dl (0-150) 08/02/23 05:02 Cholesterol 121 mg/dl (0-200) 08/02/23 05:02 LDL Cholesterol, Calc 68 mg/dl 08/02/23 05:02 VLDL Cholesterol, Calc 16 mg/dl (0-30) 08/02/23 05:02 HDL Cholesterol 37 mg/dl 08/02/23 05:02 Cholesterol/HDL Ratio 3.3 (0-5) 08/02/23 05:02 Lyme Disease IgG Ab Negative (Negative) 08/01/23 19:30 Lyme Disease IgM Ab Negative (Negative) 08/01/23 19:30 Blood Type O Positive 08/01/23 20:18 Antibody Screen NEGATIVE 08/01/23 20:18 Impressions Chest X-Ray 08/01/23 19:49 SINGLE VIEW CHEST CLINICAL HISTORY: Neurologic deficit. Stroke like symptoms. FINDINGS: An AP, portable, upright chest radiograph is compared to study dated 06/20/2022 and correlated with chest CT dated 08/11/2020. The examination is degraded by portable technique and apical lordotic positioning. The patient is status post midline sternotomy. The heart is enlarged noting atherosclerotic calcification of the thoracic aorta. There is pulmonary vascular congestion. Chronic interstitial thickening is similar to previous. There is bibasilar scarring/atelectasis. No airspace consolidation or large pleural effusion is identified. No pneumothorax is seen. The skeletal structures are osteopenic. The bony thorax is grossly intact. 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 IMPRESSION: Cardiomegaly with pulmonary vascular congestion. ACT 112: Negative or not required by law. Electronically signed by: Young Fernández M.D. 08/01/2023 10:[address] 08/01/23 19:49 Exam(s): CT HEAD Without Contrast EXAM: CT Head Without Intravenous Contrast CLINICAL HISTORY: neuro deficit, acute stroke suspected. TECHNIQUE: Axial computed tomography images of the head/brain without intravenous contrast. CTDI is 35.65 mGy and DLP is 624.41 mGy-cm. Automated exposure control was utilized for the study. A dose lowering technique was utilized adhering to the principles of ALARA. COMPARISON: No relevant prior studies available. FINDINGS: Brain: There are a few areas of decreased attenuation in the deep cerebral white matter consistent with mild small vessel ischemic/degenerative changes. The cerebral and cerebellar sulci are mildly prominent consistent with mild brain atrophy. No hemorrhage. Ventricles: Unremarkable. No ventriculomegaly. Bones/joints: Unremarkable. No acute fracture. Soft tissues: Unremarkable. Vasculature: Atherosclerotic disease. Sinuses: Mucosal thickening involving the small left maxillary sinus. The paranasal sinuses are otherwise well-aerated. Mastoid air cells: Unremarkable as visualized. No mastoid effusion. IMPRESSION: No acute intracranial process identified. Incidental underlying presumed chronic age-related findings, as noted above. Electronically signed by: Carlton Torres MD 08/01/23 21:29 PM Head CTA 08/01/23 19:49 Exam(s): CTA HEAD With Contrast IV Amt: 118 ml opti 320 EXAM: CT Angiography Head With Intravenous Contrast CLINICAL HISTORY: neuro deficit, acute stroke suspected. TECHNIQUE: Axial computed tomographic angiography images of the head with intravenous contrast. CTDI is 14.33 mGy and DLP is 548.85 mGy-cm. Automated exposure control was utilized for the study. A dose lowering technique was utilized adhering to the principles of ALARA. MIP reconstructed images were created and reviewed. CONTRAST: Patient received 118 ml opti 320 of IV contrast COMPARISON: No relevant prior studies available. FINDINGS: Right internal carotid artery: Prominent atherosclerotic calcification of the cavernous and supraclinoid segments of the right internal carotid artery. Mild to moderate narrowing of the distal internal carotid segment suspected. No occlusion. The petrous segment is patent. No aneurysm. Right anterior cerebral artery: Unremarkable. No occlusion or significant stenosis. No aneurysm. Right middle cerebral artery: Unremarkable. No occlusion or significant stenosis. No aneurysm. Right posterior cerebral artery: Unremarkable. No occlusion or significant stenosis. No aneurysm. Right vertebral artery: Unremarkable as visualized. Left internal carotid artery: Moderate atherosclerotic calcification of the cavernous and supraclinoid segments of the left internal carotid artery. Mild narrowing of the distal internal carotid segment. The left petrous segment is patent. No aneurysm. Left anterior cerebral artery: Unremarkable. No occlusion or significant stenosis. No aneurysm. Left middle cerebral artery: Unremarkable. No occlusion or significant stenosis. No aneurysm. Left posterior cerebral artery: Unremarkable. No occlusion or significant stenosis. No aneurysm. Left vertebral artery: Unremarkable as visualized. Basilar artery: Unremarkable. No occlusion or significant stenosis. No aneurysm. Dural sinuses/cerebral veins: The dural sinuses are unremarkable. Brain: No abnormal parenchymal enhancement. IMPRESSION: 1. Atherosclerotic calcification of the bilateral cavernous and supraclinoid internal carotid arteries with mild narrowing distally on the left and mild to moderate narrowing distally on the right. No occlusion or critical stenosis. 2. Otherwise negative intracranial CTA examination. Electronically signed by: Carlton Torres MD 08/01/23 21:21 PM Neck CTA 08/01/23 19:49 Exam(s): CTA NECK With Contrast IV Amt: 118 ml opti 320 EXAM: CT Angiography Neck With Intravenous Contrast CLINICAL HISTORY: neuro deficit, acute stroke suspected. TECHNIQUE: Routine carotid CT angiography protocol was performed with intravenous contrast. NASCET criteria using the distal ICAs for comparison were used for evaluation of stenoses. CTDI is 26.99 mGy and DLP is 13.49 mGy-cm. Automated exposure control was utilized for the study. A dose lowering technique was utilized adhering to the principles of ALARA. MIP reconstructed images were created and reviewed. CONTRAST: Patient received 118 ml opti 320 of IV contrast COMPARISON: None. FINDINGS: VASCULATURE: Right common carotid artery: Unremarkable. No occlusion or significant stenosis. No dissection. Right internal carotid artery: Atherosclerotic calcification of the proximal right internal carotid artery, extending to the carotid bifurcation. No significant narrowing by NASCET criteria. The mid to distal right internal carotid artery is patent. Right external carotid artery: Unremarkable. No occlusion. 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 Left common carotid artery: Unremarkable. No occlusion or significant stenosis. No dissection. Left internal carotid artery: Atherosclerotic calcification of the proximal left internal carotid artery, extending to the carotid bifurcation. No significant narrowing by NASCET criteria. The mid to distal right internal carotid artery is patent. No dissection. Left external carotid artery: Unremarkable. No occlusion. Left vertebral artery: Unremarkable. No occlusion or significant stenosis. No dissection. Brachiocephalic and subclavian arteries: There is a bovine type I branching pattern of the proximal great vessels. Atherosclerotic calcification without significant ostial stenosis. Aorta: Atherosclerotic calcification of the aortic arch without dissection or aneurysm. Postoperative changes consistent with prior CABG. NECK: Bones/joints: Unremarkable. No acute fracture. Soft tissues: Unremarkable. Lung apices: Clear. CAROTID STENOSIS REFERENCE USING NASCET CRITERIA: % ICA stenosis = (1 - narrowest ICA diameter/diameter of distal cervical ICA) x 100. Mild - <50% stenosis. Moderate - 50-69% stenosis. Severe - 70-94% stenosis. Near occlusion - 95-99% stenosis. Occluded - 100% stenosis. IMPRESSION: 1. 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 The left vertebral artery is widely patent. 2. Atherosclerotic calcification of both carotid bifurcations without significant narrowing by NASCET criteria. The common carotid and internal carotid arteries are otherwise patent. Electronically signed by: Carlton Torres MD 08/01/23 21:28 PM Brain MRI 08/02/23 00:31 Exam(s): MRI HEAD Without Contrast EXAM: MR Head Without Intravenous Contrast CLINICAL HISTORY: tia. TECHNIQUE: Magnetic resonance images of the head/brain without intravenous contrast in multiple planes. COMPARISON: CT head without contrast performed 08/01/2023 at 2052 hrs. FINDINGS: Brain: Diffusion-weighted imaging is negative for acute or subacute infarct. Abnormal T2 signal in the deep cerebral white matter is consistent with small vessel ischemic/degenerative changes. The cerebral and cerebellar sulci are prominent consistent with brain atrophy. No hemorrhage. No mass effect. Ventricles: Unremarkable. No ventriculomegaly. Bones/joints: Unremarkable. No acute fracture. Sinuses: Mucosal thickening noted involving the left maxillary sinus. The remaining paranasal sinuses are well-aerated. No acute sinusitis. Mastoid air cells: Unremarkable as visualized. No mastoid effusion. Orbits: Unremarkable as visualized. IMPRESSION: 1. No evidence of acute or subacute infarct. 2. Chronic small vessel ischemic/degenerative changes. 3. Chronic cerebral and cerebellar atrophy. Electronically signed by: Carlton Torres MD 08/02/23 02:21 AM Ordered Studies 08/01/23 19:49 CT angio head w con Stat CT angio neck with con Stat CT head/brain wo con Stat 08/02/23 00:31 MR brain wo con Routine Hospital Course (1) TIA (transient ischemic attack): Transient ischemic attack --MRI Brain:No evidence of acute or subacute infarct. Chronic small vessel ischemic/degenerative changes. Chronic cerebral and cerebellar atrophy. 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 The left vertebral artery is widely patent. Atherosclerotic calcification of both carotid bifurcations without significant narrowing by NASCET criteria. The common carotid and internal carotid arteries are otherwise patent. --Head CTA:Atherosclerotic calcification of the bilateral cavernous and supraclinoid internal carotid arteries with mild narrowing distally on the left and mild to moderate narrowing distally on the right. No occlusion or critical stenosis. Otherwise negative intracranial CTA examination. -- Echo: Moderate concentric LVH. Small sized inferior wall motion abnormality with hypokinesis of the segments. Left ventricular wall motion is normal. EF 50 to 55%. Aortic valve sclerosis mild, without significant stenosis. Grade 1 diastolic dysfunction. Compared to prior study in 2020, subtle inferior wall motion abnormality is now observed. Inferior wall motion abnormality was observed on prior study in 2012 as well. Continue dual antiplatelet therapy with aspirin and Plavix for 21 days and then transition to Plavix alone Monitor for any arrhythmias--no issues while hospitalized Allow permissive hypertension Monitor BP Increase statin dose to 40 mg daily PT OT, speech eval: PT recommends return home Advised to follow-up with neurology on discharge Plan to be discharged home today Hypertensive urgency Likely secondary to above Continue metoprolol Adjust medications as needed BP better Chronic diastolic heart failure Clinically no signs of decompensation Continue home medications Resume home diuretics as able Monitor volume status H/O CAD S/P CABG/stent PVD chronic LBBB SVT S/P Ablation Continue aspirin, statin, beta-rachel Hyperlipidemia Continue statin COPD PHYLLIS on BiPAP No signs of exacerbation Inhalers as needed Prostate cancer s/p radiation Renal oncocytoma S/P surgery DVT Px: SCDs for now Code Status Full code Disposition Home Total Time Total Time Spent Total Time Spent (In Minutes): 59 minutes Discharge Plan Discharge Items Patient Disposition: Home - Self-Care Reason For Visit: TIA Discharge Diagnosis: Transient ischemic attack Hypertension Transient bradycardia Activity: Per Instructions section Exercise/Sports: Gradually increase as tolerated Non-emergency contact: Primary Care Provider and Neurologist Call non-emergency contact if: you have any medication questions, your symptoms worsen, your pain is concerning for you and you have a fever Follow-up/Referrals: Kamari Betancourt MD [Primary Care Provider] - (Date & Time 08/09/2023 11:20 AM Provider Kamari Betancourt MD Department [facility] ) Diet: Heart Healthy Addtl Attending Provider Instructions: Follow-up with your primary care physician on 08/09/2023 11:20 AM Follow-up with your neurologist Dr.Mitchell Mata in 3-4 weeks Follow-up with your shelver for further evaluation of low heart rate which was incidentally noted while you are hospitalized --Monitor your blood pressure and heart rate regularly at home and discuss with your physician for further adjustment of medications as needed. --Continue aspirin 81 mg and Plavix 75 mg daily for 3 weeks and then take Plavix 75 mg daily alone as recommended by your neurologist. --Your Atorvastatin dose is increased to 40 mg daily. Seek immediate medical attention if your symptoms reoccur or worsen Please take all medications as instructed on discharge list below. Please call if you have any questions or problems. You can reach a [facility] hospitalist on duty at [facility] 24 hours a day by calling [phone] Risk Factors for Stroke: You can reduce your chances of stroke by working with your medical provider to adopt a healthy lifestyle. Some specific ways to lower your chance of stroke are: * If you are a smoker, now is the time to stop smoking cigarettes * If you are diabetic, improve the control of your blood sugars * Avoid excessive amounts of alcohol * Control high blood pressure * Lose weight if you are overweight * Be sure to lead an active lifestyle * Eat a healthy diet low in salt, cholesterol and fat You should know about other risk factors for stroke that you are unable to control. These include: * Age 55 years or older * Male gender * Certain racial groups: , or / * Family History of Stroke, Mini stroke or Heart Attack * Sickle Cell Disease Follow Up: It is important for you to keep your follow up appointments with your medical provider. Who to Call and When: Medical Emergencies: Call 911 immediately if you experience any of the following warning signs and symptoms of Stroke: * Sudden numbness or weakness of the face, arm or leg, especially on one side of the body * Sudden confusion, trouble speaking or understanding * Sudden trouble seeing in one or both eyes * Sudden trouble walking, dizziness, loss of balance or coordination * Sudden severe headache with no cause Do not delay calling 911 if you experience any warning signs or symptoms of a stroke. Delay in seeking medical attention may affect what treatments can be given to you. . Pending Studies at Discharge: No Stand-Alone Forms: [facility], Smoking Cessation, Medications to Prevent Stroke Medications and DC Order Prescriptions: New atorvastatin 40 mg Tablet 40 mg PO HS Qty: 30 1RF clopidogrel 75 mg Tablet 75 mg PO QAM Qty: 30 1RF Continued aspirin [Adult Aspirin Regimen] 81 mg tablet,delayed release (DR/EC) 81 mg PO DAILY omega-3 fatty acids [Fish Oil Concentrate] 1,000 mg capsule 1,000 mg PO DAILY nitroglycerin 0.4 mg Tablet, Sublingual 0.4 mg sublingual Q5M PRN (Reason: Chest Pain) ICaps [id number] Tablet Extended Release 1 tab PO DAILY diclofenac sodium 1 % Gel 2 g TOPICAL QID PRN (Reason: Pain) amoxicillin 500 mg Capsule 2,000 mg PO DIRECTED PRN (Reason: 1/2 HR PRIOR TO DENTAL APPT.) acetaminophen [Tylenol Arthritis Pain] 650 mg Tablet Extended Release 1,300 mg PO Q12H PRN (Reason: Pain) metoprolol tartrate 50 mg Tablet 50 mg PO BID furosemide [Lasix] 20 mg Tablet 20 mg PO [id number] Rx Instructions: TAKES MON, WED, & FRI. & prn isosorbide dinitrate 20 mg Tablet 40 mg PO TID albuterol sulfate 90 mcg/actuation Hfa Aerosol Inhaler 2 puff INHALATION Q6H PRN (Reason: Shortness Of Breath Or Wheezing) dutasteride 0.5 mg Capsule 0.5 mg PO DAILY ranolazine [Ranexa] 500 mg Tablet Extended Release 12 Hr 500 mg PO Q12H Discontinued atorvastatin [Lipitor] 40 mg tablet 20 mg PO HS Discharge Orders: Discharge Order (Routine); Ordered 08/03/23 Ordered By: Hernan Yadav Admission Data Admit Date/Time: 08/02/23 00:30 Attending Provider: Hernan Yadav Admit Provider: Myron Orlando Primary Care Provider: Kamari Betancourt Other Providers: Myron Orlando; Vane Mon; Steffen Chaudhry; Vane Gonzalez; Noel Simms; Lito Ruth; Primo Zambrano; Israel Ridley; Jailyn Ayon; Nathaniel Cavanaugh; Rogelio Mata; Mya Olivares; Ang Gao; Sherin Hackett; Kerri Ordoñez; Israel Matthews
--- NOTE | 2023-08-05 10:02 | Pharmacy Report ---
Pharmacist Stroke Counseling - Date of Service August 05, 2023 - Scope: Pharmacy has been consulted to provide medication discharge counseling for this patient admitted with transient ischemic attack as per the Pharmacist Discharge Counseling for Stroke Patients Protocol. - Medications on Discharge: Home Medications Medication Instructions Recorded Confirmed aspirin 81 mg tablet,delayed 81 mg PO DAILY 09/14/19 08/01/23 release (Adult Aspirin Regimen) omega-3 fatty acids 1,000 mg 1,000 mg PO DAILY 09/14/19 08/01/23 capsule (Fish Oil Concentrate) diclofenac sodium 1 % topical gel 2 g topical QID PRN Pain 08/11/20 08/01/23 nitroglycerin 0.4 mg sublingual 0.4 mg sublingual Q5M PRN Chest 08/11/20 08/01/23 tablet Pain auzX-X1-D-O-esmyvw-wdykqce-min 1 tab PO DAILY 08/11/20 08/01/23 3,300 unit-5 mg-200mg-75 unit tablet ER (ICaps) acetaminophen 650 mg 1,300 mg PO Q12H PRN Pain 11/15/20 08/01/23 tablet,extended release (Tylenol Arthritis Pain) amoxicillin 500 mg capsule 2,000 mg PO DIRECTED PRN 1/2 HR 11/15/20 08/01/23 PRIOR TO DENTAL APPT. furosemide 20 mg tablet (Lasix) 20 mg PO 3XWK 11/15/20 08/01/23 metoprolol tartrate 50 mg tablet 50 mg PO BID 11/15/20 08/01/23 albuterol sulfate 90 mcg/actuation 2 puff inhalation Q6H PRN 08/01/23 08/01/23 aerosol inhaler Shortness Of Breath Or Wheezing dutasteride 0.5 mg capsule 0.5 mg PO DAILY 08/01/23 08/01/23 isosorbide dinitrate 20 mg tablet 40 mg PO TID 08/01/23 08/01/23 ranolazine 500 mg tablet,extended 500 mg PO Q12H 08/01/23 08/01/23 release,12 hr New Rx's Medication Instructions Recorded atorvastatin 40 mg tablet 40 mg PO HS #30 tabs 08/03/23 clopidogrel 75 mg tablet 75 mg PO QAM #30 tabs 08/03/23 - Action: The above medications, specifically ones for stroke treatment/prophylaxis, have been reviewed in detail with the patient and/or patient circulation sales representative(s) prior to discharge. This includes indication, common adverse reactions, drug interactions, and medication administration. Medication counseling has been employed using the teach-back method to ensure understanding. - Outcome: The patient and/or patient circulation sales representative(s) have demonstrated understanding of the medications. Additional comments: Spoke with patients Reyna. She reports discharge instructions state to take aspirin + plavix for 21 days and then continue plavix. She state neurology direct sales consultant said to just take the plavix for 21 days and the neurology consult note does seem to indicate this as well "load plavix 300 mg x1, and start 75 mg tomorrow for a total of 21 days". They have an appointment on Saturday and will try to clarify. I will message provider if able in the meantime. Thank you for allowing pharmacy to be involved in the care of this patient. Please call [phone] with any additional questions
--- NOTE | 2023-08-05 10:45 | Pharmacy Report ---
Pharmacist Stroke Counseling - Date of Service August 05, 2023 - Scope: Pharmacy has been consulted to provide medication discharge counseling for this patient admitted with [ischemic stroke] [hemorrhagic stroke] [transient ischemic attack] as per the Pharmacist Discharge Counseling for Stroke Patients Prot ocol. - Medications on Discharge: Home Medications Medication Instructions Recorded Confirmed aspirin 81 mg tablet,delayed 81 mg PO DAILY 09/14/19 08/01/23 release (Adult Aspirin Regimen) omega-3 fatty acids 1,000 mg 1,000 mg PO DAILY 09/14/19 08/01/23 capsule (Fish Oil Concentrate) diclofenac sodium 1 % topical gel 2 g topical QID PRN Pain 08/11/20 08/01/23 nitroglycerin 0.4 mg sublingual 0.4 mg sublingual Q5M PRN Chest 08/11/20 08/01/23 tablet Pain onoW-N1-E-X-hitobv-zmocair-min 1 tab PO DAILY 08/11/20 08/01/23 3,300 unit-5 mg-200mg-75 unit tablet ER (ICaps) acetaminophen 650 mg 1,300 mg PO Q12H PRN Pain 11/15/20 08/01/23 tablet,extended release (Tylenol Arthritis Pain) amoxicillin 500 mg capsule 2,000 mg PO DIRECTED PRN 1/2 HR 11/15/20 08/01/23 PRIOR TO DENTAL APPT. furosemide 20 mg tablet (Lasix) 20 mg PO 3XWK 11/15/20 08/01/23 metoprolol tartrate 50 mg tablet 50 mg PO BID 11/15/20 08/01/23 albuterol sulfate 90 mcg/actuation 2 puff inhalation Q6H PRN 08/01/23 08/01/23 aerosol inhaler Shortness Of Breath Or Wheezing dutasteride 0.5 mg capsule 0.5 mg PO DAILY 08/01/23 08/01/23 isosorbide dinitrate 20 mg tablet 40 mg PO TID 08/01/23 08/01/23 ranolazine 500 mg tablet,extended 500 mg PO Q12H 08/01/23 08/01/23 release,12 hr New Rx's Medication Instructions Recorded atorvastatin 40 mg tablet 40 mg PO HS #30 tabs 08/03/23 clopidogrel 75 mg tablet 75 mg PO QAM #30 tabs 08/03/23 - Action: The above medications, specifically ones for stroke treatment/prophylaxis, have been reviewed in detail with the patient and/or patient digital media representative(s) prior to discharge. This includes indication, common adverse reactions, drug interactions, and medication administration. Medication counseling has been employed using the teach-back method to ensure understanding. - Outcome: The patient and/or patient digital media representative(s) have demonstrated understanding of the medications. Additional comments: [] Thank you for allowing pharmacy to be involved in the care of this patient. Please call [phone] with any additional questions
== END 2023-08-03 14:28 | disposition home or self-care (01) ==
LOC: EDINP 19:25 → ED 19:25 → EDINP 08-02 01:33 → 2W 08-02 18:02